=== PATIENT | male | born 1965 | race Caucasian/White ===

== ENCOUNTER 2017-11-12 16:53 | Emergency (ER) | payer SELFPAY ==
[~2017-11-12 16:53] MED LIST: ALBU8.5H IH; AZIT-18 PO; CYCL10TA29 PO; GUAI10LI10 PO; IBUP-56 PO; IBUP800T37 PO; PRED20TA6 PO; TIO18R INH
[2017-11-12] MEDS ORDERED: PRED20TA6 PO (17:11)
[2017-11-12] MEDS ORDERED: AMOX500T10 PO (17:11)
--- NOTE | 2017-11-12 17:11 | ER Report ---
History and Physical Time Seen By MD: 17:07 HPI/ROS CHIEF COMPLAINT: Hand swelling HISTORY OF PRESENT ILLNESS: 52-year-old male comes emergency by with swelling to his right hand primarily in the dorsal surface of the proximal wrist patient was out fishing and had multiple mosquito bites he is a known history of mosquito allergies of bites were proximal to the hand as he had a long sleeve shirt on with the shirt sleeve got pulled up subsequently this was 2 days prior to presentation he noted last couple days some redness and swelling in that area area is red warm and erythematous patient has full range of motion denies any trauma to the wrist denies any falls did not hit anything other than the mosquito bites is no other focal complaints REVIEW OF SYSTEMS: Respiratory: No cough, no dyspnea. Cardiovascular: No chest pain, no palpitations. Gastrointestinal: No vomiting, no abdominal pain. Musculoskeletal: No back pain. Remainder of the 14 system rev: Yes Allergies: Coded Allergies: No Known Drug Allergies (Unverified , 03/06/16) Home Meds Active Scripts Tiotropium Hastings (SPIRIVA) 18 Mcg/Cap Inh, 18 MCG INH 1-3XD, #1 INH Prov:BINH MURO MD 06/16/16 Reviewed Nurses Notes: Yes Old Medical Records Reviewed: Yes Hx Smoking: Yes (1/2PPD) Smoking Status: Current: Every Day Smoker Hx Substance Use Disorder: No Hx Alcohol Use: Yes (OCCASSIONAL ) Physical Exam General appearance: Alert no distress. Respiratory: Chest is non tender, lungs are clear to auscultation. Cardiac: Regular rate and rhythm [ ] Right hand examination patient has notable swelling to the dorsal aspect of the right hand primarily in the palmar area the dorsum of the hand some mild swelling to the proximal of the 5 digits patient has full range of motion of the wrist some mild tenderness to palpation of the wrist itself red warm and erythematous consistent with an inflammatory reaction no external signs of trauma no bruising or ecchymosis full range of motion to the fingers otherwise unremarkable examination DIFFERENTIAL DIAGNOSIS: After history and physical exam differential diagnosis was considered for acute inflammatory reaction most likely from insect envenomation Medical Decision Making ED Course/Re-evaluation ED Course ED clinical course 52-year-old male in the emergency department with swelling of the right hand primary to the dorsum examination shows full range of motion in all the digits and the risks of this is not trauma related at least on initial presentation most likely postinflammatory his hand is red warm erythematous with you to formal swelling throughout the dorsal aspect of the hand patient will be started on steroid anti-inflammatories and antibiotic compression dressing and primary care follow-up Decision to Disposition Date: Nov 12, 2017 Decision to Disposition Time: 17:09 Depart Departure Impression: Primary Impression: Allergic reaction Condition: Improved Disposition: HOME OR SELF-CARE Referrals: TORO DE OLIVEIRA MD 5 Days New Scripts Amoxicillin 500 Mg Tab (AMOXICILLIN 500 MG TAB) 500 Mg Tablet 2 TAB PO Q12H, #56 TAB TAKE TWO TABLETS BY MOUTH EVERY 12 HOURS Prov: BINH MURO MD 11/12/17 Prednisone (PREDNISONE) 20 Mg Tablet 60 MG PO QDAY, #12 0 Refills Prov: BINH MURO MD 11/12/17 Patient Instructions: General Allergic Reaction (ED) BINH MURO MD Nov 12, 2017 17:11
[2017-11-12 17:13] VITALS: BP 123/77
== END 2017-11-12 17:18 | disposition home or self-care (01) ==
LOC: ER 17:09
DX: T63.481A Toxic effect of venom of other arthropod, accidental (unintentional), initial encounter (principal); F17.210 Nicotine dependence, cigarettes, uncomplicated
CPT/HCPCS: 99281

== ENCOUNTER 2018-02-08 14:47 | Emergency (ER) | payer SELFPAY ==
[~2018-02-08 14:47] MED LIST changes: +AMOX500T10 PO
--- NOTE | 2018-02-08 15:03 | ER Report ---
History and Physical Time Seen By MD: 14:52 Hx. of Stated Complaint: RIGHT LOWER LEG SWELLING HPI/ROS CHIEF COMPLAINT: Confusion, dizziness, right leg swelling HISTORY OF PRESENT ILLNESS: 52-year-old male patient presents to the emergency room with complaint of confusion, dizziness, right leg swelling. Patient states that he has had swelling in his right lower extremity for the past several weeks. He states that when he gets home from work that typically that leg is significantly more swollen. Patient states that the swelling will seem to improve at night. He denies having any pain in the leg. Patient states that he returned home from work last night and felt very confused. States that he got into his bedroom, wanting to be alone and came out start cooking something for dinner. Then ordered pizza and forgot that he been in the process of making something for dinner. Patient states that he is just very confused, not able to remember what he was doing. He denied having any unilateral weakness, stating he was just very fatigued from work. Patient states he also has episodes where he will get dizzy at work. He states that he has not fallen, just states that he is very dizzy whenever he is a work. He denies having any nausea, vomiting or diarrhea. He denies having any chest pain. REVIEW OF SYSTEMS: Respiratory: No cough, no dyspnea. Cardiovascular: No chest pain, no palpitations. Gastrointestinal: No vomiting, no abdominal pain. Musculoskeletal: Complains of some back pain. Allergies: Coded Allergies: No Known Drug Allergies (Unverified , 02/08/18) Home Meds No Active Prescriptions or Reported Meds Past Medical/Surgical History Patient has past medical history of injury to the right knee, smoking half pack a day. Patient denies any surgical history. Reviewed Nurses Notes: Yes Hx Smoking: Yes (1/2PPD) Smoking Status: Current: Every Day Smoker Hx Substance Use Disorder: No Hx Alcohol Use: Yes (OCCASSIONAL ) Constitutional Vital Sign - Last 24 Hours 02/08/18 02/08/18 02/08/18 02/08/18 14:47 14:52 14:53 15:00 Temp 97.5 Pulse ??? 83 Resp 14 B/P (MAP) 126/83 (97) 126/83 124/89 (101) Pulse Ox 94 O2 Delivery Room Air 02/08/18 02/08/18 02/08/1802/08/18 15:17 15:34 15:35 15:36 Pulse 75 74 72 Resp 17 B/P (MAP) 116/69 (85) 116/69 (85) 114/72 (86) Pulse Ox 94 02/08/18 02/08/18 02/08/18 02/08/18 15:39 15:47 16:00 16:30 Pulse 85 78 Resp 22 B/P (MAP) 94/71 (79) 112/77 (89) 114/79 (91) Pulse Ox 94 O2 Delivery Room Air 02/08/18 02/08/18 02/08/18 02/08/18 16:35 16:40 17:00 17:10 Pulse 78 80 71 Resp 11 15 19 B/P (MAP) 124/80 (95) Pulse Ox 94 95 94 O2 Delivery Room Air Room Air Room Air 02/08/18 17:30 B/P (MAP) 138/86 (103) Physical Exam General Appearance: The patient is alert, has no immediate need for airway protection and no current signs of toxicity. ENT: Tympanic membranes are pearly-angelo, auditory canals are patent, mucous membranes are moist. Respiratory: Chest is non tender, lungs are clear to auscultation. Cardiac: regular rate and rhythm Gastrointestinal: Abdomen is soft and non tender, no masses, bowel sounds normal. Musculoskeletal: Neck: Neck is supple and non tender. Extremities have full range of motion and are non tender. Skin: No rashes or lesions. Neuro: Patient is alert and oriented 4, cranial nerves II through XII grossly intact. Patient had a negative pronator drift. Patient has equal strength throughout. DIFFERENTIAL DIAGNOSIS: After history and physical exam differential diagnosis was considered for DVT, depression, electrolyte abnormality. Medical Decision Making Data Points Result Diagram: 02/08/18 1544 02/08/18 1544 Laboratory Hematology Test 02/08/18 15:44 02/08/18 16:17 Red Blood Count 5.03 M/uL (4.00-5.60) Mean Corpuscular Volume 99.6 fL (80.0-96.0) Mean Corpuscular Hemoglobin 35.4 pg (26.0-33.0) Mean Corpuscular Hemoglobin Concent 35.5 g/dL (32.0-36.0) Red Cell Distribution Width 13.4 % (11.5-14.5) Mean Platelet Volume 10.3 fL (7.2-11.1) Neutrophils (%) (Auto) 46.3 % (39.4-72.5) Lymphocytes (%) (Auto) 38.2 % (17.6-49.6) Monocytes (%) (Auto) 11.0 % (4.1-12.4) Eosinophils (%) (Auto) 3.0 % (0.4-6.7) Basophils (%) (Auto) 1.5 % (0.3-1.4) Nucleated RBC Relative Count (auto) 0.0 /100WBC Neutrophils # (Auto) 2.3 K/uL (2.0-7.4) Lymphocytes # (Auto) 1.9 K/uL (1.3-3.6) Monocytes # (Auto) 0.6 K/uL (0.3-1.0) Eosinophils # (Auto) 0.2 K/uL (0.0-0.5) Basophils # (Auto) 0.1 K/uL (0.0-0.1) Nucleated RBC Absolute Count (auto) 0.00 K/uL Peripheral Blood Smear Yes Y/N Prothrombin Time 12.3 seconds (12.0-14.4) Prothromb Time International Ratio 0.92 Activated Partial Thromboplast Time 26 seconds (23-35) Sodium Level 143 mmol/L (137-145) Potassium Level 3.6 mmol/L (3.5-5.0) Chloride Level 108 mmol/L (98-107) Carbon Dioxide Level 20 mmol/L (22-30) Blood Urea Nitrogen 8 mg/dl (9-21) Creatinine 0.70 mg/dl (0.66-1.25) Glomerular Filtration Rate Calc > 60.0 Random Glucose 134 mg/dl (75-110) Calcium Level 8.7 mg/dl (8.4-10.2) Total Bilirubin 0.3 mg/dl (0.2-1.3) Aspartate Amino Transf (AST/SGOT) 61 U/L (0-35) Alanine Aminotransferase (ALT/SGPT) 57 U/L (0-56) Alkaline Phosphatase 49 U/L (0-126) Total Protein 6.7 g/dl (6.3-8.2) Albumin 3.8 g/dl (3.5-5.0) Urine Color Yellow Urine Clarity Slightly-cloudy Urine pH 5.0 pH (4.8-9.5) Urine Specific Elsie 1.016 Urine Protein Negative mg/dL (NEGATIVE) Urine Glucose (UA) Negative mg/dL (NEGATIVE) Urine Ketones Negative mg/dL (NEGATIVE) Urine Blood Negative (NEGATIVE) Urine Nitrite Negative (NEGATIVE) Urine Bilirubin Negative (NEGATIVE) Urine Urobilinogen 2.0 mg/dL (0.2-1.9) Urine Leukocyte Esterase Negative (NEGATIVE) Urine RBC <1 /HPF (0-2/HPF) Urine WBC 1 /HPF (0-5/HPF) Urine Squamous Epithelial Cells Few /LPF (</=FEW) Urine Bacteria Negative /HPF (NONE-FEW) Urine Hyaline Casts Few /LPF (NONE-FEW) Urine Mucus Few /HPF (NONE-FEW) Chemistry Test 02/08/18 15:44 02/08/18 16:17 White Blood Count 5.0 k/uL (4.5-11.0) Red Blood Count 5.03 M/uL (4.00-5.60) Hemoglobin 17.8 g/dL (14.0-18.0) Hematocrit 50.1 % (42.0-52.0) Mean Corpuscular Volume 99.6 fL (80.0-96.0) Mean Corpuscular Hemoglobin 35.4 pg (26.0-33.0) Mean Corpuscular Hemoglobin Concent 35.5 g/dL (32.0-36.0) Red Cell Distribution Width 13.4 % (11.5-14.5) Platelet Count 101 K/uL (150-450) Mean Platelet Volume 10.3 fL (7.2-11.1) Neutrophils (%) (Auto) 46.3 % (39.4-72.5) Lymphocytes (%) (Auto) 38.2 % (17.6-49.6) Monocytes (%) (Auto) 11.0 % (4.1-12.4) Eosinophils (%) (Auto) 3.0 % (0.4-6.7) Basophils (%) (Auto) 1.5 % (0.3-1.4) Nucleated RBC Relative Count (auto) 0.0 /100WBC Neutrophils # (Auto) 2.3 K/uL (2.0-7.4) Lymphocytes # (Auto) 1.9 K/uL (1.3-3.6) Monocytes # (Auto) 0.6 K/uL (0.3-1.0) Eosinophils # (Auto) 0.2 K/uL (0.0-0.5) Basophils # (Auto) 0.1 K/uL (0.0-0.1) Nucleated RBC Absolute Count (auto) 0.00 K/uL Peripheral Blood Smear Yes Y/N Prothrombin Time 12.3 seconds (12.0-14.4) Prothromb Time International Ratio 0.92 Activated Partial Thromboplast Time 26 seconds (23-35) Glomerular Filtration Rate Calc > 60.0 Calcium Level 8.7 mg/dl (8.4-10.2) Total Bilirubin 0.3 mg/dl (0.2-1.3) Aspartate Amino Transf (AST/SGOT) 61 U/L (0-35) Alanine Aminotransferase (ALT/SGPT) 57 U/L (0-56) Alkaline Phosphatase 49 U/L (0-126) Total Protein 6.7 g/dl (6.3-8.2) Albumin 3.8 g/dl (3.5-5.0) Urine Color Yellow Urine Clarity Slightly-cloudy Urine pH 5.0 pH (4.8-9.5) Urine Specific Elsie 1.016 Urine Protein Negative mg/dL (NEGATIVE) Urine Glucose (UA) Negative mg/dL (NEGATIVE) Urine Ketones Negative mg/dL (NEGATIVE) Urine Blood Negative (NEGATIVE) Urine Nitrite Negative (NEGATIVE) Urine Bilirubin Negative (NEGATIVE) Urine Urobilinogen 2.0 mg/dL (0.2-1.9) Urine Leukocyte Esterase Negative (NEGATIVE) Urine RBC <1 /HPF (0-2/HPF) Urine WBC 1 /HPF (0-5/HPF) Urine Squamous Epithelial Cells Few /LPF (</=FEW) Urine Bacteria Negative /HPF (NONE-FEW) Urine Hyaline Casts Few /LPF (NONE-FEW) Urine Mucus Few /HPF (NONE-FEW) Coagulation Test 02/08/18 15:44 Prothrombin Time 12.3 seconds Prothromb Time International Ratio 0.92 Activated Partial Thromboplast Time 26 seconds Urinalysis Test 02/08/18 16:17 Urine Color Yellow Urine Clarity Slightly-cloudy Urine pH 5.0 pH (4.8-9.5) Urine Specific Elsie 1.016 Urine Protein Negative mg/dL (NEGATIVE) Urine Glucose (UA) Negative mg/dL (NEGATIVE) Urine Ketones Negative mg/dL (NEGATIVE) Urine Blood Negative (NEGATIVE) Urine Nitrite Negative (NEGATIVE) Urine Bilirubin Negative (NEGATIVE) Urine Urobilinogen 2.0 mg/dL (0.2-1.9) Urine Leukocyte Esterase Negative (NEGATIVE) Urine RBC <1 /HPF (0-2/HPF) Urine WBC 1 /HPF (0-5/HPF) Urine Squamous Epithelial Cells Few /LPF (</=FEW) Urine Bacteria Negative /HPF (NONE-FEW) Urine Hyaline Casts Few /LPF (NONE-FEW) Urine Mucus Few /HPF (NONE-FEW) EKG/Imaging Imaging 2 VIEWS CHEST INDICATION: Confusion last night. Coarse lung sounds. History of smoking. COMPARISON: 06/16/2016. FINDINGS: Cardiomediastinal silhouette and pulmonary vessels within normal limits. There is no focal infiltrate or lobar consolidation. There is no pneumothorax or pleural effusion. No nodule. Upper abdomen is unremarkable. No acute bony abnormality. IMPRESSION: 1. No acute cardiopulmonary process. Report Dictated By: Cheikh Yepez at 02/08/2018 4:31 PM Report E-Signed By: Cheikh Yepez at 02/08/2018 4:[address] OF THE BRAIN WITHOUT CONTRAST HISTORY: Confusion last night PROCEDURE: 3.0 mm contiguous axial sections were performed through the brain. Sagittal and coronal reformats were submitted. COMPARISON: None FINDINGS: BRAIN: Brain and intracranial structures: There is no mass lesion, hemorrhage or acute infarct. Orbits (included portions): Normal. Scalp: Normal. Skull: Normal. Paranasal sinuses and mastoid air cells (included portions): Normal. IMPRESSION: No evidence of acute intracranial abnormality. One of the following dose optimization techniques was utilized in the performance of this exam: Automated exposure control; adjustment of the mA and/or kV according to the patient's size; or use of an iterative reconstruction technique. Specific details can be referenced in the facility's radiology CT exam operational policy. Report Dictated By: Sumaya Camacho MD at 02/08/2018 4:31 PM Report E-Signed By: Sumaya Camacho MD at 02/08/2018 5:03 PM Venous Doppler ultrasound right lower extremity Indication: Right calf swelling.. Comparison: None Available Findings: Duplex Doppler and color flow imaging was performed. The common femoral, femoral, and popliteal veins are all patent and compressible with normal Doppler wave forms. There are normal responses to augmentation. The posterior tibial and peroneal veins are patent in the calf. The proximal greater saphenous vein is also normal. Subcutaneous tissues are unremarkable. IMPRESSION: 1. No evidence of deep venous thrombosis of the right lower extremity. Report Dictated By: Cheikh Yepez at 02/08/2018 5:01 PM Report E-Signed By: Cheikh Yepez at 02/08/2018 5:01 PM ED Course/Re-evaluation ED Course Patient was admitted and examined, history and physical were obtained. Differential diagnoses were considered. On examination patient had no obvious swelling to the right lower leg, there was no weakness noted to the upper extremities. Patient is alert and oriented 4. A CBC, CMP, chest x-ray, CT scan of the head and venous ultrasound were done. Patient was negative for any DVTs, labs were unremarkable, platelets were a little low at 101, MCV is elevated 99. I believe is probably secondary to alcohol abuse. CT scan of the head was negative. I discussed findings with the patient. I believe that the edema is likely secondary to standing for extended period time. I believe that the confusion that he had last night is likely secondary more to depression. With him stating that he has been wanting to be separate and not around people like normal basilar that this more a depression that is a mini stroke. I will have the patient wear compression stockings when he is working. We'll have him follow-up with primary care at the [facility] for further evaluation. Patient and friend verbalized understanding and agreement with plan. Decision to Disposition Date: Feb 08, 2018 Decision to Disposition Time: 17:38 Depart Departure Latest Vital Signs Vital Signs Date Time Temp Pulse Resp B/P (MAP) Pulse Ox O2 Delivery O2 Flow Rate FiO2 02/08/18 17:30 138/86 (103) 02/08/18 17:10 71 19 94 Room Air 02/08/18 14:53 97.5 Impression: Primary Impression: Dizziness Additional Impression: Leg swelling Condition: Improved Disposition: HOME OR SELF-CARE New Scripts No Active Prescriptions or Reported Meds Patient Instructions: Dizziness (ED) Additional Instructions: Increase fluid intake. Get plenty of rest. Follow up with the [facility] . Return to the ER if condition worsens. Wear compression hose when you are working. Continue with normal diet and activities. Problem Qualifiers LISA WILCOX Feb 08, 2018 15:03
[2018-02-08 15:18] LABS: INR 0.92
--- NOTE | 2018-02-08 15:22 | EKG ---
FACILITY: [facility] [place] PATIENT NAME: JOSE ENRIQUE SYLVESTER : [id number] MR: [id number] V: [id number] EXAM DATE: ORDERING PHYSICIAN: LISA WILCOX TECHNOLOGIST: [place] Test Reason : DIZZINESS Blood Pressure : / mmHG Vent. Rate : 077 BPM Atrial Rate : 077 BPM P-R Int : 128 ms QRS Dur : 104 ms QT Int : 402 ms P-R-T Axes : 027 -74 052 degrees QTc Int : 454 ms Sinus rhythm Incomplete right bundle branch block Leftward axis Left anterior fascicular block Abnormal ECG When compared with ECG of 16-JUN-2016 10:31, T wave inversion no longer evident in Anterior leads Confirmed by Devan Llamas ([id number]) on 02/08/2018 5:36:30 PM Referred By: JERI Confirmed By:Devan Martinez
[2018-02-08 15:57] LABS: PLATELET COUNT, AUTOMATED 101 K/uL (150-450)
[2018-02-08] MEDS ORDERED: NS(*) 0.9% 1000 ML BAG 1,000 ML IV ONE (16:25)
--- NOTE | 2018-02-08 16:38 | RADIOLOGY IMAGING REPORT ---
FACILITY: [facility] PATIENT NAME: Rito Falk : 1965 MR: [id number] V: [id number] EXAM DATE: ORDERING PHYSICIAN: LISA WILCOX TECHNOLOGIST: Location: [facility] Patient: Rito Falk : 1965 Visit/Account:[id number] Date of Sevice: 02/08/2018 2 VIEWS CHEST INDICATION: Confusion last night. Coarse lung sounds. History of smoking. COMPARISON: 06/16/2016. FINDINGS: Cardiomediastinal silhouette and pulmonary vessels within normal limits. There is no focal infiltrate or lobar consolidation. There is no pneumothorax or pleural effusion. No nodule. Upper abdomen is unremarkable. No acute bony abnormality. IMPRESSION: 1. No acute cardiopulmonary process. Report Dictated By: Cheikh Yepez at 02/08/2018 4:31 PM Report E-Signed By: Cheikh Yepez at 02/08/2018 4:33 PM WSN:[id number]
--- NOTE | 2018-02-08 17:04 | RADIOLOGY IMAGING REPORT ---
FACILITY: [facility] PATIENT NAME: Rito Falk : 1965 MR: [id number] V: [id number] EXAM DATE: ORDERING PHYSICIAN: LISA WILCOX TECHNOLOGIST: Location: [facility] Patient: Rito Falk : 1965 Visit/Account:[id number] Date of Sevice: 02/08/2018 Venous Doppler ultrasound right lower extremity Indication: Right calf swelling.. Comparison: None Available Findings: Duplex Doppler and color flow imaging was performed. The common femoral, femoral, and popl iteal veins are all patent and compressible with normal Doppler wave forms. There are normal respons es to augmentation. The posterior tibial and peroneal veins are patent in the calf. The proximal greater saphenous vein i s also normal. Subcutaneous tissues are unremarkable. IMPRESSION: 1. No evidence of deep venous thrombosis of the right lower extremity. Report Dictated By: Cheikh Yepez at 02/08/2018 5:01 PM Report E-Signed By: Cheikh Yepez at 02/08/2018 5:01 PM WSN:[id number]
--- NOTE | 2018-02-08 17:07 | RADIOLOGY IMAGING REPORT ---
[place] [facility] [place] NAME: Rito Falk : 1965 MR: [id number] V: [id number] EXAM DATE: ORDERING PHYSICIAN: LISA WILCOX TECHNOLOGIST: Location: [facility] Patient: Rito Falk : 1965 Visit/Account:[id number] Date of Sevice: 02/08/2018 CT OF THE BRAIN WITHOUT CONTRAST HISTORY: Confusion last night PROCEDURE: 3.0 mm contiguous axial sections were performed through the brain. Sagittal and coronal r eformats were submitted. COMPARISON: None FINDINGS: BRAIN: Brain and intracranial structures: There is no mass lesion, hemorrhage or acute infarct. Orbits (included portions): Normal. Scalp: Normal. Skull: Normal. Paranasal sinuses and mastoid air cells (included portions): Normal. IMPRESSION: No evidence of acute intracranial abnormality. One of the following dose optimization techniques was utilized in the performance of this exam: Autom ated exposure control; adjustment of the mA and/or kV according to the patient's size; or use of an i terative reconstruction technique. Specific details can be referenced in the facility's radiology C T exam operational policy. Report Dictated By: Sumaya Camacho MD at 02/08/2018 4:31 PM Report E-Signed By: Sumaya Camacho MD at 02/08/2018 5:03 PM WSN:[id number]
[2018-02-08 17:30] VITALS: BP 138/86
== END 2018-02-08 17:51 | disposition home or self-care (01) ==
LOC: ER 15:02
DX: R42 Dizziness and giddiness (principal); M79.89 Other specified soft tissue disorders; R94.31 Abnormal electrocardiogram [ECG] [EKG]
CPT/HCPCS: 36415; 70450; 71046; 81001; 85025; 85610; 85730; 93005; 93971; 96360; 99285; J7030; 82040; 82247; 82310; 82374; 82435; 82565; 82947; 84075; 84132; 84155; 84295; 84450; 84460; 84520

== ENCOUNTER 2018-02-23 17:30 | Emergency (ER) | payer SELFPAY ==
--- NOTE | 2018-02-23 18:01 | ER Report ---
History and Physical Time Seen By MD: 18:01 Hx. of Stated Complaint: SEVERE LOWER L SIDE ABDO PAIN PAST 2 DAYS, DIARRHEA, VOMITING HPI/ROS CHIEF COMPLAINT: Abdominal pain HISTORY OF PRESENT ILLNESS: This is a 53-year-old male who presents to the emergency department for abdominal pain. Patient states that he has left-sided abdominal pain for about 2 days, no injuries. Patient states the pain does radiate down into the left testicle, he thinks he's had an inguinal hernia repair. Patient does lift quite a bit of weight at work. Patient has also had some diarrhea, vomiting. Denies fevers or chills. No headaches. No rashes. No recent trauma. REVIEW OF SYSTEMS: Constitutional: No fever, no chills. Eyes: No discharge. ENT: No sore throat. Cardiovascular: No chest pain, no palpitations. Respiratory: No cough, no shortness of breath. Gastrointestinal: As above. Genitourinary: As above. Musculoskeletal: No back pain. Skin: No rashes. Neurological: No headache. Allergies: Coded Allergies: No Known Drug Allergies (Unverified , 02/08/18) Home Meds Active Scripts Ondansetron Hcl (ZOFRAN) 4 Mg Tablet, 4 MG PO Q12H, #8 TAB 0 Refills Prov:JONNY ELISE [facility]- 02/23/18 Past Medical/Surgical History The patient has a past medical and surgical history of pneumonia, chronic back pain, wears glasses, wears dentures, leukemia, inguinal hernia repair. Hx Smoking: Yes (1/2PPD) Smoking Status: Current: Every Day Smoker Hx Substance Use Disorder: No Hx Alcohol Use: Yes (OCCASSIONAL ) Constitutional Vital Sign - Last 24 Hours 02/23/18 17:50 Temp 97.9 Pulse 81 Resp 16 B/P (MAP) 121/80 Pulse Ox 89 O2 Delivery Room Air Physical Exam General Appearance: The patient is alert, has no immediate need for airway protection and no signs of toxicity. Eyes: Pupils equal and round no pallor or injection. ENT, Mouth: Mucous membranes are dry. Respiratory: There are no retractions, lungs are clear to auscultation. Cardiovascular: Regular rate and rhythm. Gastrointestinal: Abdomen is soft , mild tenderness to the left lower and right lower quadrants. No rebound tenderness. Normoactive bowel sounds. No abdominal bruits, no masses, bowel sounds normal. Genitourinary: Decreased but positive cremasteric reflex bilaterally. No inguinal abnormalities. No abnormal testicular findings. Neurological: Alert and oriented 4. Moving all extremities. Following all commands. No focal neuro deficits. Skin: Warm and dry, no rashes. Musculoskeletal: Neck is supple non tender. Extremities are nontender, nonswollen and have full range of motion. DIFFERENTIAL DIAGNOSIS: After history and physical exam differential diagnosis was considered for abdominal pain including but not limited to appendicitis, cholecystitis, gastritis and urinary tract infection. Medical Decision Making Data Points Result Diagram: 02/23/18 1836 02/23/186 Laboratory Hematology Test 02/23/18 18:36 02/23/18 19:34 Red Blood Count 5.17 M/uL (4.00-5.60) Mean Corpuscular Volume 99.0 fL (80.0-96.0) Mean Corpuscular Hemoglobin 34.7 pg (26.0-33.0) Mean Corpuscular Hemoglobin Concent 35.1 g/dL (32.0-36.0) Red Cell Distribution Width 13.6 % (11.5-14.5) Mean Platelet Volume 10.2 fL (7.2-11.1) Neutrophils (%) (Auto) 41.4 % (39.4-72.5) Lymphocytes (%) (Auto) 43.7 % (17.6-49.6) Monocytes (%) (Auto) 9.6 % (4.1-12.4) Eosinophils (%) (Auto) 3.9 % (0.4-6.7) Basophils (%) (Auto) 1.4 % (0.3-1.4) Nucleated RBC Relative Count (auto) 0.1 /100WBC Neutrophils # (Auto) 1.9 K/uL (2.0-7.4) Lymphocytes # (Auto) 2.0 K/uL (1.3-3.6) Monocytes # (Auto) 0.5 K/uL (0.3-1.0) Eosinophils # (Auto) 0.2 K/uL (0.0-0.5) Basophils # (Auto) 0.1 K/uL (0.0-0.1) Nucleated RBC Absolute Count (auto) 0.00 K/uL Peripheral Blood Smear Yes Y/N Sodium Level 145 mmol/L (137-145) Potassium Level 3.7 mmol/L (3.5-5.0) Chloride Level 110 mmol/L (98-107) Carbon Dioxide Level 23 mmol/L (22-30) Blood Urea Nitrogen 9 mg/dl (9-21) Creatinine 0.60 mg/dl (0.66-1.25) Glomerular Filtration Rate Calc > 60.0 Random Glucose 95 mg/dl (75-110) Calcium Level 9.2 mg/dl (8.4-10.2) Total Bilirubin 0.4 mg/dl (0.2-1.3) Aspartate Amino Transf (AST/SGOT) 72 U/L (0-35) Alanine Aminotransferase (ALT/SGPT) 61 U/L (0-56) Alkaline Phosphatase 55 U/L (0-126) Total Protein 7.3 g/dl (6.3-8.2) Albumin 3.8 g/dl (3.5-5.0) Urine Color Yellow Urine Clarity Clear Urine pH 5.0 pH (4.8-9.5) Urine Specific [place] 1.034 Urine Protein Negative mg/dL (NEGATIVE) Urine Glucose (UA) Negative mg/dL (NEGATIVE) Urine Ketones Negative mg/dL (NEGATIVE) Urine Blood Negative (NEGATIVE) Urine Nitrite Negative (NEGATIVE) Urine Bilirubin Negative (NEGATIVE) Urine Urobilinogen Negative mg/dL (0.2-1.9) Urine Leukocyte Esterase Negative (NEGATIVE) Urine RBC None /HPF (0-2/HPF) Urine WBC None /HPF (0-5/HPF) Urine Squamous Epithelial Cells None /LPF (</=FEW) Urine Bacteria Negative /HPF (NONE-FEW) Urine Mucus None /HPF (NONE-FEW) Chemistry Test 02/23/18 18:36 02/23/18 19:34 White Blood Count 4.7 k/uL (4.5-11.0) Red Blood Count 5.17 M/uL (4.00-5.60) Hemoglobin 18.0 g/dL (14.0-18.0) Hematocrit 51.2 % (42.0-52.0) Mean Corpuscular Volume 99.0 fL (80.0-96.0) Mean Corpuscular Hemoglobin 34.7 pg (26.0-33.0) Mean Corpuscular Hemoglobin Concent 35.1 g/dL (32.0-36.0) Red Cell Distribution Width 13.6 % (11.5-14.5) Platelet Count 103 K/uL (150-450) Mean Platelet Volume 10.2 fL (7.2-11.1) Neutrophils (%) (Auto) 41.4 % (39.4-72.5) Lymphocytes (%) (Auto) 43.7 % (17.6-49.6) Monocytes (%) (Auto) 9.6 % (4.1-12.4) Eosinophils (%) (Auto) 3.9 % (0.4-6.7) Basophils (%) (Auto) 1.4 % (0.3-1.4) Nucleated RBC Relative Count (auto) 0.1 /100WBC Neutrophils # (Auto) 1.9 K/uL (2.0-7.4) Lymphocytes # (Auto) 2.0 K/uL (1.3-3.6) Monocytes # (Auto) 0.5 K/uL (0.3-1.0) Eosinophils # (Auto) 0.2 K/uL (0.0-0.5) Basophils # (Auto) 0.1 K/uL (0.0-0.1) Nucleated RBC Absolute Count (auto) 0.00 K/uL Peripheral Blood Smear Yes Y/N Glomerular Filtration Rate Calc > 60.0 Calcium Level 9.2 mg/dl (8.4-10.2) Total Bilirubin 0.4 mg/dl (0.2-1.3) Aspartate Amino Transf (AST/SGOT) 72 U/L (0-35) Alanine Aminotransferase (ALT/SGPT) 61 U/L (0-56) Alkaline Phosphatase 55 U/L (0-126) Total Protein 7.3 g/dl (6.3-8.2) Albumin 3.8 g/dl (3.5-5.0) Urine Color Yellow Urine Clarity Clear Urine pH 5.0 pH (4.8-9.5) Urine Specific [place] 1.034 Urine Protein Negative mg/dL (NEGATIVE) Urine Glucose (UA) Negative mg/dL (NEGATIVE) Urine Ketones Negative mg/dL (NEGATIVE) Urine Blood Negative (NEGATIVE) Urine Nitrite Negative (NEGATIVE) Urine Bilirubin Negative (NEGATIVE) Urine Urobilinogen Negative mg/dL (0.2-1.9) Urine Leukocyte Esterase Negative (NEGATIVE) Urine RBC None /HPF (0-2/HPF) Urine WBC None /HPF (0-5/HPF) Urine Squamous Epithelial Cells None /LPF (</=FEW) Urine Bacteria Negative /HPF (NONE-FEW) Urine Mucus None /HPF (NONE-FEW) Urinalysis Test 02/23/18 19:34 Urine Color Yellow Urine Clarity Clear Urine pH 5.0 pH (4.8-9.5) Urine Specific [place] 1.034 Urine Protein Negative mg/dL (NEGATIVE) Urine Glucose (UA) Negative mg/dL (NEGATIVE) Urine Ketones Negative mg/dL (NEGATIVE) Urine Blood Negative (NEGATIVE) Urine Nitrite Negative (NEGATIVE) Urine Bilirubin Negative (NEGATIVE) Urine Urobilinogen Negative mg/dL (0.2-1.9) Urine Leukocyte Esterase Negative (NEGATIVE) Urine RBC None /HPF (0-2/HPF) Urine WBC None /HPF (0-5/HPF) Urine Squamous Epithelial Cells None /LPF (</=FEW) Urine Bacteria Negative /HPF (NONE-FEW) Urine Mucus None /HPF (NONE-FEW) EKG/Imaging Imaging EXAMINATION: Limited right upper quadrant ultrasound Additional Pertinent history: Abdominal pain. Distended gallbladder on CT scan. COMPARISON STUDIES: CT of the abdomen pelvis done earlier in the day. FINDINGS: Gallbladder: no stones, sludge, wall thickening or pericholecystic fluid. Patient was tender during the exam. Gallbladder is mildly distended without focal abnormality. Liver: Normal size and echotexture. No focal abnormality and a smooth surface. Portal vein is patent. No ascites. Common duct: Mildly dilated up to 9.1 mm however tapers towards the pancreatic duct. This is unchanged from CT scan. No intraductal abnormality is identified. Pancreas: No focal abnormality. Right kidney: negative Proximal IVC/Aorta: negative IMPRESSION: 1. Gallbladder is mildly distended but shows no focal normality. The patient was tender during the exam. 2. Common bile duct is mildly dilated. It does appear to taper to the pancreas. No intraductal abnormality is identified. This is unchanged from the CT scan. Report Dictated By: Cheikh Yepez at 02/23/2018 10:35 PM Report E-Signed By: Cheikh Yepez at 02/23/2018 10:39 PM WSN:[id number] Location: [facility] Patient: Rito Falk : 1965 Visit/Account:[id number] Date of Sevice: 02/23/2018 ABDOMEN/PELVIS WITH CONTRAST HISTORY: Abdominal pain TECHNIQUE: Axial images were obtained through the abdomen and pelvis with intravenous contrast . One of the following dose optimization techniques was utilized in the performance of this exam: automated exposure control; adjustment of the mA and/or kv according to patient size; or use of iterative reconstruction technique. Specific details can be referenced in the facility's radiology CT exam operational policy. CONTRAST: 75 mL of Isovue-370 COMPARISON: None. FINDINGS: Visualized lung bases: Negative. Hepatobiliary: Dilated gallbladder. Common bile duct measures 9 mm with tapering towards the ampulla. Subtle nodular hepatic contour concerning for cirrhosis. Spleen: Borderline splenomegaly. Adrenals: Negative. Pancreas: Negative. Kidneys/ureters/bladder: Negative. Bowel/peritoneum/mesentery: Normal appendix. No bowel obstruction, free air or ascites. Suboptimal distention of the descending and sigmoid colon. Vessels: Negative. Lymph nodes: Mildly enlarged periportal lymph nodes measuring 1.7 x 1.2 cm (image 35). Pelvic genitourinary: Negative. Bones/body wall: Negative. Other findings: None significant IMPRESSION: 1. Dilated gallbladder with the common bile duct measuring 9 mm. This can be seen with cholecystitis, common bile duct stone or possibly mass although the pancreatic duct is normal caliber. Recommend ultrasound for further evaluation. 2. Nodular hepatic contour concerning for cirrhosis with borderline splenomegaly. Mild periportal lymphadenopathy is nonspecific. Report Dictated By: Alan Encarnacion MD at 02/23/2018 8:33 PM Report E-Signed By: Alan Encarnacion MD at 02/23/2018 8:40 PM WSN:[id number] ED Course/Re-evaluation Clinical Indication for ER IV: Hydration, IV Access ED Course The patient was admitted to a room. A history and physical were obtained. Differential diagnoses were considered. An IV was started. A CBC, CMP were obtained. CBC unremarkable, chemistry unremarkable. Negative urine. Patient was given a 1 L normal saline bolus. 4 mg IV Zofran, 4 mg IV morphine. Patient stat es feeling much better at this time. A CT of the abdomen and pelvis Showing dilated gallbladder with the common bile duct injuring 9 mm, this can be seen with cholecystitis, and bile duct stone or possible mass through the pancreatic duct as normal caliber recommended ultrasound. I did review this with the patient, I did recommend an ultrasound. Patient was agreeable. Ultrasound showing Gallbladder is mildly distended but shows no focal normality. No cholecystitis, no sludging or stones identified. The patient is much improved at this time I did recommend following up with the [facility] and Dr. Huynh for further evaluation. Patient was given a take home pack for Zofran, he was also given a prescription for Zofran. Truck to to take Advil or Tylenol as needed for pain. He states he will follow up with the [facility]. Patient had no other questions or concerns at this time and discharged home. Decision to Disposition Date: Feb 23, 2018 Decision to Disposition Time: 23:02 Depart Departure Latest Vital Signs Vital Signs Date Time Temp Pulse Resp B/P (MAP) Pulse Ox O2 Delivery O2 Flow Rate FiO2 02/23/18 17:50 97.9 81 16 121/80 89 Room Air Impression: Primary Impression: Abdominal pain Additional Impression: Gallbladder disorder Condition: Improved Disposition: HOME OR SELF-CARE Referrals: FRANKY MCKEON (PCP) 5 Days ROBBY HUYNH MD New Scripts Ondansetron Hcl (ZOFRAN) 4 Mg Tablet 4 MG PO Q12H, #8 TAB 0 Refills Prov: JONNY ELISE- 02/23/18 Patient Instructions: Abdominal Pain (ED) Additional Instructions: It appears that sure pain is coming from her gallbladder, it is mildly distended, and no infectious process or stones identified in the CAT scan or ultrasound today. I would recommend following up with the [facility] this week for reevaluation. I would also recommend calling Dr. Maggie Dixon office tomorrow and try to schedule a follow-up appointment within the next several weeks for reevaluation. Drink plenty of water. Get plenty of rest. Take the Zofran for nausea. Return to the emergency department for any other concerns or worsening symptoms. Problem Qualifiers Primary Impression: Abdominal pain Abdominal location: lower abdomen, unspecified Qualified Codes: R10.30 - Lower abdominal pain, unspecified JONNY ELISEP- Feb 23, 2018 18:01
[2018-02-23] MEDS ORDERED: MORPHINE 4 MG/ML SDV IVP ONE (18:15)
[2018-02-23] MEDS ORDERED: ONDANSETRON 4 MG/2 ML VIAL IVP ONE (18:15)
[2018-02-23] MEDS ORDERED: IOPAMIDOL 76% 75 ML INFUS BTL 75 ML ONE (18:38)
[2018-02-23 18:46] LABS: PLATELET COUNT, AUTOMATED 103 K/uL (150-450)
--- NOTE | 2018-02-23 20:44 | RADIOLOGY IMAGING REPORT ---
FACILITY: [facility] PATIENT NAME: Rito Falk : 1965 MR: [id number] V: [id number] EXAM DATE: ORDERING PHYSICIAN: JONNY ELISE TECHNOLOGIST: Location: [facility] Patient: Rito Falk : 1965 Visit/Account:[id number] Date of Sevice: 02/23/2018 ABDOMEN/PELVIS WITH CONTRAST HISTORY: Abdominal pain TECHNIQUE: Axial images were obtained through the abdomen and pelvis with intravenous contrast . One of the following dose optimization techniques was utilized in the performance of this exam: automate d exposure control; adjustment of the mA and/or kv according to patient size; or use of iterative rec onstruction technique. Specific details can be referenced in the facility's radiology CT exam operati onal policy. CONTRAST: 75 mL of Isovue-370 COMPARISON: None. FINDINGS: Visualized lung bases: Negative. Hepatobiliary: Dilated gallbladder. Common bile duct measures 9 mm with tapering towards the ampull a. Subtle nodular hepatic contour concerning for cirrhosis. Spleen: Borderline splenomegaly. Adrenals: Negative. Pancreas: Negative. Kidneys/ureters/bladder: Negative. Bowel/peritoneum/mesentery: Normal appendix. No bowel obstruction, free air or ascites. Suboptimal distention of the descending and sigmoid colon. Vessels: Negative. Lymph nodes: Mildly enlarged periportal lymph nodes measuring 1.7 x 1.2 cm (image 35). Pelvic genitourinary: Negative. Bones/body wall: Negative. Other findings: None significant IMPRESSION: 1. Dilated gallbladder with the common bile duct measuring 9 mm. This can be seen with cholecystiti s, common bile duct stone or possibly mass although the pancreatic duct is normal caliber. Recommend ultrasound for further evaluation. 2. Nodular hepatic contour concerning for cirrhosis with borderline splenomegaly. Mild periportal l ymphadenopathy is nonspecific. Report Dictated By: Alan Encarnacion MD at 02/23/2018 8:33 PM Report E-Signed By: Alan Encarnacion MD at 02/23/2018 8:40 PM WSN:[id number]
[2018-02-23 22:40] VITALS: BP 154/91
--- NOTE | 2018-02-23 22:43 | RADIOLOGY IMAGING REPORT ---
FACILITY: [facility] [place] PATIENT NAME: Rito Falk : 1965 MR: [id number] V: [id number] EXAM DATE: ORDERING PHYSICIAN: JONNY ELISE TECHNOLOGIST: Location: [facility] Patient: Rito Falk : 1965 Visit/Account:[id number] Date of Sevice: 02/23/2018 EXAMINATION: Limited right upper quadrant ultrasound Additional Pertinent history: Abdominal pain. Distended gallbladder on CT scan. COMPARISON STUDIES: CT of the abdomen pelvis done earlier in the day. FINDINGS: Gallbladder: no stones, sludge, wall thickening or pericholecystic fluid. Patient was tender during t he exam. Gallbladder is mildly distended without focal abnormality. Liver: Normal size and echotexture. No focal abnormality and a smooth surface. Portal vein is patent. No ascites. Common duct: Mildly dilated up to 9.1 mm however tapers towards the pancreatic duct. This is unchange d from CT scan. No intraductal abnormality is identified. Pancreas: No focal abnormality. Right kidney: negative Proximal IVC/Aorta: negative IMPRESSION: 1. Gallbladder is mildly distended but shows no focal normality. The patient was tender during the ex am. 2. Common bile duct is mildly dilated. It does appear to taper to the pancreas. No intraductal abnorm ality is identified. This is unchanged from the CT scan. Report Dictated By: Cheikh Yepez at 02/23/2018 10:35 PM Report E-Signed By: Cheikh Yepez at 02/23/2018 10:39 PM WSN:[id number]
[2018-02-23] MEDS ORDERED: NS(*) 0.9% 1000 ML BAG 1,000 ML IV ONE (22:45)
[2018-02-23] MEDS ORDERED: ONDA4TAB97 PO (23:09)
[2018-02-23] MEDS ORDERED: ONDANSETRON 4 MG ODT TH SL ONE (23:10)
[2018-02-24] MEDS ORDERED: OMEP-125 PO (12:56)
== END 2018-02-23 23:23 | disposition home or self-care (01) ==
LOC: ER 18:12
DX: R10.30 Lower abdominal pain, unspecified (principal); K82.9 Disease of gallbladder, unspecified
CPT/HCPCS: 74177; 76705; 81001; 85025; 96361; 96374; 96375; 99284; J2270; J2405; J7030; Q9967; S0119; 82040; 82247; 82310; 82374; 82435; 82565; 82947; 84075; 84132; 84155; 84295; 84450; 84460; 84520

== ENCOUNTER 2018-02-24 09:17 | Emergency (ER) | payer SELFPAY ==
--- NOTE | 2018-02-24 09:14 | ER Report ---
History and Physical Time Seen By MD: 09:14 (LEAH LAMBERT MD) Time Seen By MD: 10:59 (JONNY ELISE) HPI/ROS CHIEF COMPLAINT: Recurrent abdominal pain HISTORY OF PRESENT ILLNESS: This is a 53-year-old male who returns to the emergency department for abdominal pain and nausea and vomiting. Patient was seen and evaluated here yesterday by me, had a CT and ultrasound which showed a dilated gallbladder but no cholecystitis, patient's blood work was unremarkable yesterday. Ultimately we decided to send the patient home last night, he was going to follow-up with the [facility] and also a follow-up with Dr. Kurtz. Patient states that the pain returned this morning decided to come in for reevaluation. Patient denies any significant changes, other than the recurrent abdominal pain, and the vomiting. No fevers or chills. No visual changes, no chest pain or shortness of breath. REVIEW OF SYSTEMS: Constitutional: No fever, no chills. Eyes: No discharge. ENT: No sore throat. Cardiovascular: No chest pain, no palpitations. Respiratory: No cough, no shortness of breath. Gastrointestinal: As above. Genitourinary: No hematuria. Musculoskeletal: No back pain. Skin: No rashes. Neurological: No headache. (JONNY ELISE) Allergies: Coded Allergies: No Known Drug Allergies (Unverified , 02/08/18) Home Meds Active Scripts Omeprazole (OMEPRAZOLE) 20 Mg Capsule., 1 CAP PO QDAY for 30 Days, #30 CAP 0 Refills Prov:JONNY ELISE 02/24/18 Ondansetron Hcl (ZOFRAN) 4 Mg Tablet, 4 MG PO Q12H, #8 TAB 0 Refills Prov:JONNY ELISE 02/23/18 Past Medical/Surgical History The patient has a past medical and surgical history of back pain, wears glasses, occasionally uses alcohol, poor dentition. (JONNY ELISE) Reviewed Nurses Notes: Yes (JONNY ELISE) Hx Smoking: Yes (1/2PPD) Smoking Status: Current: Every Day Smoker Hx Substance Use Disorder: No Hx Alcohol Use: Yes (OCCASSIONAL ) (LEAH LAMBERT MD) Constitutional Vital Sign - Last 24 Hours 02/24/18 02/24/18 02/24/18 02/24/18 09:22 09:28 09:30 09:45 Temp 97.8 Pulse 75 70 71 Resp 18 B/P (MAP) 137/86 117/80 (92) Pulse Ox 95 96 95 O2 Delivery Nasal Cannula O2 Flow Rate 2.0 02/24/18 02/24/18 02/24/18 02/24/18 10:00 10:15 10:30 10:45 Pulse 71 73 73 B/P (MAP) 110/76 (87) 109/79 (89) Pulse Ox 94 94 94 94 02/24/18 02/24/18 02/24/18 02/24/18 11:00 11:15 11:30 11:45 Pulse 72 77 B/P (MAP) 111/79 (90) 110/75 (87) Pulse Ox 94 94 96 02/24/18 02/24/18 02/24/18 12:00 12:15 13:03 Pulse 69 70 68 B/P (MAP) 117/73 (88) 130/73 (92) Pulse Ox 96 98 91 (JONNY ELISEP-BC) Physical Exam General Appearance: The patient is alert, has no immediate need for airway protection and no signs of toxicity. Eyes: Pupils equal and round no pallor or injection. ENT, Mouth: Mucous membranes are moist. Respiratory: There are no retractions, lungs are clear to auscultation. Cardiovascular: Regular rate and rhythm. Gastrointestinal: Abdomen is soft, diffuse abdominal pain, hyperactive bowel sounds throughout. No masses. Neurological: Alert and oriented 4. Moving all extremities. Following all commands. No focal neuro deficits. Skin: Warm and dry, no rashes. Musculoskeletal: Neck is supple non tender. Extremities are nontender, nonswollen and have full range of motion. DIFFERENTIAL DIAGNOSIS: After history and physical exam differential diagnosis was considered for abdominal pain including but not limited to appendicitis, cholecystitis, gastritis and urinary tract infection. (JONNY ELISE-BC) Medical Decision Making Data Points Result Diagram: 02/24/1820 02/24/18919 Laboratory Hematology Test 02/24/18 09:20 Red Blood Count 5.24 M/uL (4.00-5.60) Mean Corpuscular Volume 101.0 fL (80.0-96.0) Mean Corpuscular Hemoglobin 35.0 pg (26.0-33.0) Mean Corpuscular Hemoglobin Concent 34.7 g/dL (32.0-36.0) Red Cell Distribution Width 13.6 % (11.5-14.5) Mean Platelet Volume 10.7 fL (7.2-11.1) Neutrophils (%) (Auto) 74.6 % (39.4-72.5) Lymphocytes (%) (Auto) 14.6 % (17.6-49.6) Monocytes (%) (Auto) 9.5 % (4.1-12.4) Eosinophils (%) (Auto) 0.4 % (0.4-6.7) Basophils (%) (Auto) 0.9 % (0.3-1.4) Nucleated RBC Relative Count (auto) 0.2 /100WBC Neutrophils # (Auto) 6.4 K/uL (2.0-7.4) Lymphocytes # (Auto) 1.3 K/uL (1.3-3.6) Monocytes # (Auto) 0.8 K/uL (0.3-1.0) Eosinophils # (Auto) 0.0 K/uL (0.0-0.5) Basophils # (Auto) 0.1 K/uL (0.0-0.1) Nucleated RBC Absolute Count (auto) 0.01 K/uL Sodium Level 140 mmol/L (137-145) Potassium Level 4.0 mmol/L (3.5-5.0) Chloride Level 103 mmol/L (98-107) Carbon Dioxide Level 25 mmol/L (22-30) Blood Urea Nitrogen 9 mg/dl (9-21) Creatinine 0.70 mg/dl (0.66-1.25) Glomerular Filtration Rate Calc > 60.0 Random Glucose 110 mg/dl (75-110) Calcium Level 9.3 mg/dl (8.4-10.2) Total Bilirubin 1.2 mg/dl (0.2-1.3) Aspartate Amino Transf (AST/SGOT) 92 U/L (0-35) Alanine Aminotransferase (ALT/SGPT) 81 U/L (0-56) Alkaline Phosphatase 65 U/L (0-126) Total Protein 7.7 g/dl (6.3-8.2) Albumin 4.2 g/dl (3.5-5.0) Lipase 60 U/L (23-300) Helicobacter pylori IgG Antibody Negative (NEGATIVE) Chemistry Test 02/24/18 09:20 White Blood Count 8.6 k/uL (4.5-11.0) Red Blood Count 5.24 M/uL (4.00-5.60) Hemoglobin 18.4 g/dL (14.0-18.0) Hematocrit 52.9 % (42.0-52.0) Mean Corpuscular Volume 101.0 fL (80.0-96.0) Mean Corpuscular Hemoglobin 35.0 pg (26.0-33.0) Mean Corpuscular Hemoglobin Concent 34.7 g/dL (32.0-36.0) Red Cell Distribution Width 13.6 % (11.5-14.5) Platelet Count 95 K/uL (150-450) Mean Platelet Volume 10.7 fL (7.2-11.1) Neutrophils (%) (Auto) 74.6 % (39.4-72.5) Lymphocytes (%) (Auto) 14.6 % (17.6-49.6) Monocytes (%) (Auto) 9.5 % (4.1-12.4) Eosinophils (%) (Auto) 0.4 % (0.4-6.7) Basophils (%) (Auto) 0.9 % (0.3-1.4) Nucleated RBC Relative Count (auto) 0.2 /100WBC Neutrophils # (Auto) 6.4 K/uL (2.0-7.4) Lymphocytes # (Auto) 1.3 K/uL (1.3-3.6) Monocytes # (Auto) 0.8 K/uL (0.3-1.0) Eosinophils # (Auto) 0.0 K/uL (0.0-0.5) Basophils # (Auto) 0.1 K/uL (0.0-0.1) Nucleated RBC Absolute Count (auto) 0.01 K/uL Glomerular Filtration Rate Calc > 60.0 Calcium Level 9.3 mg/dl (8.4-10.2) Total Bilirubin 1.2 mg/dl (0.2-1.3) Aspartate Amino Transf (AST/SGOT) 92 U/L (0-35) Alanine Aminotransferase (ALT/SGPT) 81 U/L (0-56) Alkaline Phosphatase 65 U/L (0-126) Total Protein 7.7 g/dl (6.3-8.2) Albumin 4.2 g/dl (3.5-5.0) Lipase 60 U/L (23-300) Helicobacter pylori IgG Antibody Negative (NEGATIVE) (JONNY ELISE) ED Course/Re-evaluation Clinical Indication for ER IV: Hydration, IV Access ED Course The patient was admitted to a room. History of physical or pain. Differential diagnoses were considered. An IV was started. A CBC, CMP were obtained. Lab studies showing H&H 18.4 and 52.9, this is likely hemoconcentrated due to the patient's lack of intake over the last evening and is episodes of vomiting. Chemistry showing AST 92, ALT 81. No repeat studies were obtained. Patient was given a GI cocktail. Patient was also given 4 mg IV Zofran, 4 mg IV morphine. I did review the laboratory studies with the patient, I also spoke with Dr. Kurtz as noted below, he felt that the patient would benefit from an upper GI suggested starting him on a PPI. Patient's H. pylori was negative. Patient was started on omeprazole. Patient had significant relief from the GI cocktail. Patient will berry picker his prescription omeprazole and Zofran at the pharmacy. He will also follow-up with the [facility] and Dr. Kurtz's office. The patient had no other questions or concerns at this time and was discharged home. I did tell patient that the GI discomfort that he is having could be gastric irritation, patient denies drinking alcohol but only on occasion. 02/24/2018 12:14:10 pm I did speak with Dr. Kurtz regarding the patient's case, he suggested starting the patient on a PPI, checking an H. pylori and would likely need an upper GI, he states he'll try to have his nurse contact the patient to schedule an upper GI. Decision to Disposition Date: Feb 24, 2018 Decision to Disposition Time: 12:54 (JONNY ELISE) Depart Departure Latest Vital Signs Vital Signs Date Time Temp Pulse Resp B/P (MAP) Pulse Ox O2 Delivery O2 Flow Rate FiO2 02/24/18 13:03 68 130/73 (92) 91 02/24/18 09:28 2.0 02/24/18 09:22 97.8 18 [facility]al Cannula [facility] Impression: Primary Impression: Abdominal pain of unknown etiology Condition: Improved Disposition: HOME OR SELF-CARE Referrals: FRNAKY MCKEON (PCP) ROBBY HUYNH MD New Scripts Omeprazole (OMEPRAZOLE) 20 Mg Capsule.dr 1 CAP PO QDAY for 30 Days, #30 CAP 0 Refills Prov: JONNY ELISE 02/24/18 Patient Instructions: Abdominal Pain (ED) Additional Instructions: Your blood work does not show anything concerning today. I did speak with Dr. Kurtz regarding her symptoms and his recommendation was an upper GI study, his nurse will contact you within the next couple of days, if you do not heard anything by the end of week to schedule an appointment please call his office. Please start the omeprazole, 20 mg a day for 30 days. Avoid any alcohol or spicy foods. Take the Zofran as needed for nausea and vomiting. Try to get plenty of fluids. Get plenty of rest. Return to the ER for any other concerns or worsening symptoms. LEAH LAMBERT MD Feb 24, 2018 09:14 JONNY ELISE Feb 24, 2018 10:59
[~2018-02-24 09:17] MED LIST changes: -OMEP-125 PO
[2018-02-24] MEDS ORDERED: NS(*) 0.9% 1000 ML BAG 1,000 ML IV ONE (11:02)
[2018-02-24] MEDS ORDERED: ONDANSETRON 4 MG/2 ML VIAL IVP ONE (11:05)
[2018-02-24] MEDS ORDERED: MORPHINE 4 MG/ML SDV IVP ONE (11:05)
[2018-02-24 11:14] LABS: PLATELET COUNT, AUTOMATED 95 K/uL (150-450)
[2018-02-24] MEDS ORDERED: EMS NS 0.9%(*) 1000 ML BAG 1,000 ML IV ONE (11:15)
[2018-02-24] MEDS ORDERED: ATRO/SCOPOL/HYOSCY/PB 5 ML ELX PO ONE (12:05)
[2018-02-24] MEDS ORDERED: MAG HYD/AL HYD/SIMETH 30ML UDC PO ONE (12:05)
[2018-02-24] MEDS ORDERED: LIDOCAINE 2% VISC SLN 15ML UDC PO ONE (12:05)
[2018-02-24] MEDS ORDERED: OMEP-125 PO (12:56)
[2018-02-24 13:03] VITALS: BP 130/73
== END 2018-02-24 13:10 | disposition home or self-care (01) ==
LOC: ER 09:21
DX: R10.9 Unspecified abdominal pain (principal)
CPT/HCPCS: 83690; 85025; 86677; 96361; 96374; 96375; 99284; J2270; J2405; 82040; 82247; 82310; 82374; 82435; 82565; 82947; 84075; 84132; 84155; 84295; 84450; 84460; 84520

== ENCOUNTER → 2018-02-24 | Outpatient (CLI) | payer SELFPAY ==
[~2018-02-24] MED LIST changes: +OMEP-125 PO; +ONDA4TAB97 PO
== END ==
LOC: AMB 08:59
PROVIDERS: ATTEND Nurse Practitioner
DX: R10.9 Unspecified abdominal pain (principal); R11.10 Vomiting, unspecified; R19.7 Diarrhea, unspecified; R19.30 Abdominal rigidity, unspecified site
CPT/HCPCS: A0425; A0427

== ENCOUNTER 2018-03-08 19:58 | Emergency (ER) | payer SELFPAY ==
[~2018-03-08 19:58] MED LIST changes: -CIPR-214 PO; -DICY10CA11 PO; -METR-160 PO
--- NOTE | 2018-03-08 20:02 | ER Report ---
History and Physical Time Seen By MD: 19:54 HPI/ROS CHIEF COMPLAINT: Altered mental status, abdominal pain HISTORY OF PRESENT ILLNESS: 53-year-old male patient presents to emergency room with complaint of altered mental status and abdominal pain. Patient has not been acting normally throughout most the day. He gone shopping with some friends and wanted often wandered into traffic. They did gathering up and took him home. We'll use a home he was acting like himself. EMS contacted and he was brought into the emergency room. Patient has pain to the left flank. He denies having any diarrhea. He denies having any nausea. Patient states that he is on medications which were brought in. He states that his pain has gotten worse since he was evaluated previously. Patient was evaluated here in the emergency room and then followed up with a primary care provider. REVIEW OF SYSTEMS: Respiratory: No cough, no dyspnea. Cardiovascular: No chest pain, no palpitations. Gastrointestinal: As noted above Musculoskeletal: No back pain. Allergies: Coded Allergies: No Known Drug Allergies (Unverified , 02/08/18) Home Meds Active Scripts Omeprazole (OMEPRAZOLE) 20 Mg Capsule.dr, 1 CAP PO QDAY for 30 Days, #30 CAP 0 Refills Prov:JONNY ELISE [facility] 02/24/18 Ondansetron Hcl (ZOFRAN) 4 Mg Tablet, 4 MG PO Q12H, #8 TAB 0 Refills Prov:JONNY ELISE [facility] 02/23/18 Reported Medications Metronidazole (METRONIDAZOLE) 500 Mg Tablet, 500 MG PO TID, TAB 03/08/18 Dicyclomine Hcl (DICYCLOMINE HCL) 10 Mg Capsule, 10 MG PO QID, CAPSULE 03/08/18 Ciprofloxacin Hcl (CIPROFLOXACIN HCL) 500 Mg Tablet, 500 MG PO Q12H, #14 TAB 03/08/18 Past Medical/Surgical History Patient has a past medical history of pneumonia, back pain, alcohol use. Patient denies any pertinent surgical history. Patient has a family medical history of cancer, diabetes. Reviewed Nurses Notes: Yes Hx Smoking: Yes (1/2PPD) Smoking Status: Current: Every Day Smoker Hx Substance Use Disorder: No Hx Alcohol Use: Yes (OCCASSIONAL ) Constitutional Vital Sign - Last 24 Hours 03/08/18 19:59 Temp 97.8 Pulse 70 Resp 16 B/P (MAP) 143/91 Pulse Ox 95 O2 Delivery Room Air Physical Exam General Appearance: The patient is alert, has no immediate need for airway protection and no current signs of toxicity. Patient is alert, he is responding to questions, patient is not sure who he is, is unsure where he is at Respiratory: Chest is non tender, lungs are clear to auscultation. Cardiac: regular rate and rhythm Gastrointestinal: Abdomen is soft and tender in the left upper and lower quadrants, no masses, bowel sounds are hypoactive. Musculoskeletal: Neck: Neck is supple and non tender. Extremities have full range of motion and are non tender. Skin: No rashes or lesions. DIFFERENTIAL DIAGNOSIS: After history and physical exam differential diagnosis was considered for altered mental status including but not limited to hypogl ycemia, infectious process, electrolyte abnormality, head injury and intoxicants. Abdominal pain differential including but not limited to appendicitis, cholecystitis, gastritis and urinary tract infection. Medical Decision Making Data Points Result Diagram: 03/08/18201603/08/182016 Laboratory Hematology Test 03/08/18 20:17 03/08/18 20:41 Red Blood Count 5.29 M/uL (4.00-5.60) Mean Corpuscular Volume 99.2 fL (80.0-96.0) Mean Corpuscular Hemoglobin 34.8 pg (26.0-33.0) Mean Corpuscular Hemoglobin Concent 35.0 g/dL (32.0-36.0) Red Cell Distribution Width 13.7 % (11.5-14.5) Mean Platelet Volume 9.5 fL (7.2-11.1) Neutrophils (%) (Auto) 47.7 % (39.4-72.5) Lymphocytes (%) (Auto) 40.8 % (17.6-49.6) Monocytes (%) (Auto) 8.1 % (4.1-12.4) Eosinophils (%) (Auto) 2.1 % (0.4-6.7) Basophils (%) (Auto) 1.3 % (0.3-1.4) Nucleated RBC Relative Count (auto) 0.0 /100WBC Neutrophils # (Auto) 2.2 K/uL (2.0-7.4) Lymphocytes # (Auto) 1.9 K/uL (1.3-3.6) Monocytes # (Auto) 0.4 K/uL (0.3-1.0) Eosinophils # (Auto) 0.1 K/uL (0.0-0.5) Basophils # (Auto) 0.1 K/uL (0.0-0.1) Nucleated RBC Absolute Count (auto) 0.00 K/uL Peripheral Blood Smear Yes Y/N Sodium Level 141 mmol/L (137-145) Potassium Level 4.7 mmol/L (3.5-5.0) Chloride Level 104 mmol/L (98-107) Carbon Dioxide Level 25 mmol/L (22-30) Blood Urea Nitrogen 9 mg/dl (9-21) Creatinine 0.80 mg/dl (0.66-1.25) Glomerular Filtration Rate Calc > 60.0 Random Glucose 101 mg/dl (75-110) Calcium Level 9.2 mg/dl (8.4-10.2) Total Bilirubin 0.4 mg/dl (0.2-1.3) Aspartate Amino Transf (AST/SGOT) 134 U/L (0-35) Alanine Aminotransferase (ALT/SGPT) 104 U/L (0-56) Alkaline Phosphatase 66 U/L (0-126) Ammonia < 9 UMOL/L (9-33) Troponin I < 0.012 ng/ml Total Protein 7.1 g/dl (6.3-8.2) Albumin 3.9 g/dl (3.5-5.0) Amylase Level 50 U/L (0-110) Lipase 194 U/L (23-300) Serum Alcohol 198 mg/dl Urine Color Yellow Urine Clarity Clear Urine pH 5.0 pH (4.8-9.5) Urine Specific [place] 1.015 Urine Protein Negative mg/dL (NEGATIVE) Urine Glucose (UA) Negative mg/dL (NEGATIVE) Urine Ketones Negative mg/dL (NEGATIVE) Urine Blood Negative (NEGATIVE) Urine Nitrite Negative (NEGATIVE) Urine Bilirubin Negative (NEGATIVE) Urine Urobilinogen 2.0 mg/dL (0.2-1.9) Urine Leukocyte Esterase Trace (NEGATIVE) Urine RBC None /HPF (0-2/HPF) Urine WBC None /HPF (0-5/HPF) Urine Squamous Epithelial Cells Few /LPF (</=FEW) Urine Bacteria Negative /HPF (NONE-FEW) Urine Mucus Few /HPF (NONE-FEW) Urine Opiates Screen Negative Urine Barbiturates Screen Negative Ur Tricyclic Antidepressants Screen Negative Urine Phencyclidine Screen Negative Urine Amphetamines Screen Negative Urine Benzodiazepines Screen Negative Urine Cocaine Screen Negative Urine Cannabinoids Screen Negative Chemistry Test 03/08/18 20:17 03/08/18 20:41 White Blood Count 4.6 k/uL (4.5-11.0) Red Blood Count 5.29 M/uL (4.00-5.60) Hemoglobin 18.4 g/dL (14.0-18.0) Hematocrit 52.5 % (42.0-52.0) Mean Corpuscular Volume 99.2 fL (80.0-96.0) Mean Corpuscular Hemoglobin 34.8 pg (26.0-33.0) Mean Corpuscular Hemoglobin Concent 35.0 g/dL (32.0-36.0) Red Cell Distribution Width 13.7 % (11.5-14.5) Platelet Count 96 K/uL (150-450) Mean Platelet Volume 9.5 fL (7.2-11.1) Neutrophils (%) (Auto) 47.7 % (39.4-72.5) Lymphocytes (%) (Auto) 40.8 % (17.6-49.6) Monocytes (%) (Auto) 8.1 % (4.1-12.4) Eosinophils (%) (Auto) 2.1 % (0.4-6.7) Basophils (%) (Auto) 1.3 % (0.3-1.4) Nucleated RBC Relative Count (auto) 0.0 /100WBC Neutrophils # (Auto) 2.2 K/uL (2.0-7.4) Lymphocytes # (Auto) 1.9 K/uL (1.3-3.6) Monocytes # (Auto) 0.4 K/uL (0.3-1.0) Eosinophils # (Auto) 0.1 K/uL (0.0-0.5) Basophils # (Auto) 0.1 K/uL (0.0-0.1) Nucleated RBC Absolute Count (auto) 0.00 K/uL Peripheral Blood Smear Yes Y/N Glomerular Filtration Rate Calc > 60.0 Calcium Level 9.2 mg/dl (8.4-10.2) Total Bilirubin 0.4 mg/dl (0.2-1.3) Aspartate Amino Transf (AST/SGOT) 134 U/L (0-35) Alanine Aminotransferase (ALT/SGPT) 104 U/L (0-56) Alkaline Phosphatase 66 U/L (0-126) Ammonia < 9 UMOL/L (9-33) Troponin I < 0.012 ng/ml Total Protein 7.1 g/dl (6.3-8.2) Albumin 3.9 g/dl (3.5-5.0) Amylase Level 50 U/L (0-110) Lipase 194 U/L (23-300) Serum Alcohol 198 mg/dl Urine Color Yellow Urine Clarity Clear Urine pH 5.0 pH (4.8-9.5) Urine Specific [place] 1.015 Urine Protein Negative mg/dL (NEGATIVE) Urine Glucose (UA) Negative mg/dL (NEGATIVE) Urine Ketones Negative mg/dL (NEGATIVE) Urine Blood Negative (NEGATIVE) Urine Nitrite Negative (NEGATIVE) Urine Bilirubin Negative (NEGATIVE) Urine Urobilinogen 2.0 mg/dL (0.2-1.9) Urine Leukocyte Esterase Trace (NEGATIVE) Urine RBC None /HPF (0-2/HPF) Urine WBC None /HPF (0-5/HPF) Urine Squamous Epithelial Cells Few /LPF (</=FEW) Urine Bacteria Negative /HPF (NONE-FEW) Urine Mucus Few /HPF (NONE-FEW) Urine Opiates Screen Negative Urine Barbiturates Screen Negative Ur Tricyclic Antidepressants Screen Negative Urine Phencyclidine Screen Negative Urine Amphetamines Screen Negative Urine Benzodiazepines Screen Negative Urine Cocaine Screen Negative Urine Cannabinoids Screen Negative Toxicology Test 03/08/18 20:17 03/08/18 20:41 Serum Alcohol 198 mg/dl Urine Opiates Screen Negative Urine Barbiturates Screen Negative Ur Tricyclic Antidepressants Screen Negative Urine Phencyclidine Screen Negative Urine Amphetamines Screen Negative Urine Benzodiazepines Screen Negative Urine Cocaine Screen Negative Urine Cannabinoids Screen Negative Urinalysis Test 03/08/18 20:41 Urine Color Yellow Urine Clarity Clear Urine pH 5.0 pH (4.8-9.5) Urine Specific [place] 1.015 Urine Protein Negative mg/dL (NEGATIVE) Urine Glucose (UA) Negative mg/dL (NEGATIVE) Urine Ketones Negative mg/dL (NEGATIVE) Urine Blood Negative (NEGATIVE) Urine Nitrite Negative (NEGATIVE) Urine Bilirubin Negative (NEGATIVE) Urine Urobilinogen 2.0 mg/dL (0.2-1.9) Urine Leukocyte Esterase Trace (NEGATIVE) Urine RBC None /HPF (0-2/HPF) Urine WBC None /HPF (0-5/HPF) Urine Squamous Epithelial Cells Few /LPF (</=FEW) Urine Bacteria Negative /HPF (NONE-FEW) Urine Mucus Few /HPF (NONE-FEW) EKG/Imaging EKG Interpretation 12 lead EKG: Rhythm: normal sinus rhythm [place]: normal QRS: Incomplete right bundle branch block ST segments: Nonspecific ST abnormality Imaging Computed tomograpy abdomen and pelvis with IV contrast Indication: Abdominal pain. Comparison: 02/23/2018. Technique: Transaxial computed tomography images were obtained through the abdomen and pelvis following the injection of nonionic iodinated intravenous contrast. Reformatted coronal and sagittal images were also obtained. One of the following dose optimization techniques was utilized in the performance of this exam: Automated exposure control; adjustment of the mA and/or kV according to the patient's size; or use of an iterative reconstruction technique. Specific details can be referenced in the facility's radiology CT exam operational policy. Contrast: 75 ml of Isovue-370 IV contrast. Findings: Lower lung key: Minimal dependent atelectasis. Liver: There is diffuse fatty liver. Subtle nodularity of the liver contours is present which may reflect changes of cirrhosis. Correlate clinically. No intrahepatic biliary dilatation. Biliary: Gallbladder is distended and has a similar appearance to the prior exam. No calcified stones. No wall thickening or surrounding inflammation. Common bile duct appears normal in caliber on today's study. Pancreas: Normal appearance. Spleen: Upper limits of normal for size. Adrenal glands: Unremarkable. Kidneys / retroperitoneum: No stones or hydronephrosis. Bowel / peritoneum / mesenteries: The visualized small and large bowel appear unremarkable. Appendix is well-seen and is normal. Lymph node assessment: There are scattered leonardo hepatis and celiac axis lymph nodes identified. These nodes have a similar distribution to the prior exam. A leonardo hepatis node on image 30 measures 2.1 x 1.2 cm and previously measured 1.7 x 1.2 cm. A portacaval node on image 39 measures 1.4 x 2.6 cm and previously measured 1.2 x 2.7 cm. These nodes are nonspecific. Other scattered nodes in this region are similar. Pelvic structures: Appear unremarkable. No free pelvic fluid. No free intraperitoneal air. Vessels: Scattered atherosclerotic calcifications seen throughout a nonaneurysmal abdominal aorta and branches. Musculoskeletal / Body wall: No acute or aggressive osseous abnormality. IMPRESSION: 1. Distention of the gallbladder without wall thickening or surrounding inflammatory changes. Appearance is similar to 02/23/2018. 2. No evidence of biliary dilatation. Common bile duct is normal in caliber on today's exam. 3. Nonspecific perihepatic and celiac axis lymphadenopathy. Overall appearance and distribution is not significantly changed. At minimum, continued follow-up is recommended. 4. Diffuse fatty liver. 5. Subtle nodularity of the liver contours suggesting cirrhotic change. Report Dictated By: Kenn Tavarez at 03/08/2018 10:18 PM Report E-Signed By: Kenn Tavarez at 03/08/2018 10:[address] Head without contrast Indication: Abdominal pain. Intermittent confusion. Comparison: 02/08/2018 Technique: Axial CT images were obtained through the brain from the skull base to the vertex without administration of IV contrast. Reformatted coronal and sagittal images were also obtained. One of the following dose optimization techniques was utilized in the performance of this exam: Automated exposure control; adjustment of the mA and/or kV according to the patient's size; or use of an iterative reconstruction technique. Specific details can be referenced in the facility's radiology CT exam operational policy. Findings: No evidence of mass, mass effect, or midline shift. No acute intracranial hemorrhage or acute territorial infarction. There is preservation of the angelo-white matter junction. Ventricles are normal and symmetric. The visualized paranasal sinuses and mastoid air cells are clear. IMPRESSION: 1. Normal CT examination of the brain. No interval change from 02/08/2018. Report Dictated By: Kenn Tavarez at 03/08/2018 10:13 PM Report E-Signed By: Kenn Tavarez at 03/08/2018 10:18 PM ED Course/Re-evaluation ED Course Patient was admitted to an exam room, history and physical were obtained. Differential diagnoses were considered. On examination lungs are clear, heart is regular, abdomen is soft and tender diffusely. Patient was unable to tell me where he was or who he was. As result that a CBC, CMP, ammonia level, EKG, troponin were done. Lab results were unremarkable except patient did have a blood alcohol of 198. A drug screen was done as well as urinalysis and those were negative. A CT scan of the head as well as the abdomen and pelvis were done. There is no acute changes in the head nor in the abdomen. I discussed the findings with the patient. Informed him that I believe that the altered mental status was likely secondary to alcohol consumption. We will go ahead and d ischarge patient home at this time. I would like and go ahead and continue with his normal medications. I would like him follow-up Dr. Browne as previously scheduled. He is to return to emergency room if condition worsens. Patient verbalized understanding and agreement with plan. Decision to Disposition Date: Mar 08, 2018 Decision to Disposition Time: 22:45 Depart Departure Latest Vital Signs Vital Signs Date Time Temp Pulse Resp B/P (MAP) Pulse Ox O2 Delivery O2 Flow Rate FiO2 03/08/18 19:59 97.8 70 16 143/91 95 Room Air Impression: Primary Impression: Alcohol intoxication Additional Impression: Abdominal pain Condition: Improved Disposition: HOME OR SELF-CARE Referrals: FRANKY MCKEON (PCP) Patient Instructions: Alcohol Intoxication (ED) Additional Instructions: Follow up with Dr. Browne as previously scheduled. Return to the ER if condition worsens. Avoid alcohol while you are taking the Flagyl. Clear liquid diet for the next 24 hours and then advance diet as tolerated. Increase fluid intake. Continue with your current prescriptions. Problem Qualifiers Primary Impression: Alcohol intoxication Complication of substance-induced condition: uncomplicated Qualified Codes: F10.920 - Alcohol use, unspecified with intoxication, uncomplicated Additional Impression: Abdominal pain Abdominal location: generalized Qualified Codes: R10.84 - Generalized abdominal pain LISA WILCOX Mar 08, 2018 20:02
[2018-03-08] MEDS ORDERED: NS(*) 0.9% 1000 ML BAG 1,000 ML IV ONE (20:03)
[2018-03-08] MEDS ORDERED: CIPR-214 PO (20:05)
[2018-03-08] MEDS ORDERED: DICY10CA11 PO (20:08)
[2018-03-08] MEDS ORDERED: METR-160 PO (20:08)
[2018-03-08 20:25] LABS: PLATELET COUNT, AUTOMATED 96 K/uL (150-450)
[2018-03-08] MEDS ORDERED: IOPAMIDOL 76% 75 ML INFUS BTL 75 ML ONE (20:49)
--- NOTE | 2018-03-08 21:30 | EKG ---
FACILITY: [facility] [place] PATIENT NAME: JOSE ENRIQUE SYLVESTER : [id number] MR: [id number] V: [id number] EXAM DATE: ORDERING PHYSICIAN: LISA WILCOX TECHNOLOGIST: JV Test Reason : STOMACH PAIN Blood Pressure : / mmHG Vent. Rate : 069 BPM Atrial Rate : 069 BPM P-R Int : 150 ms QRS Dur : 102 ms QT Int : 428 ms P-R-T Axes : 058 -70 018 degrees QTc Int : 458 ms Normal sinus rhythm Left anterior fascicular block T inversion consistent with septal ischemia vs normal variant When compared with ECG of 08-FEB-2018 15:12, Relatively unchanged Confirmed by MALOU SUAREZ ([id number]) on 03/09/2018 2:52:27 PM Referred By: LISA Confirmed By:MALOU SUAREZ
[2018-03-08 22:00] VITALS: BP 133/90
--- NOTE | 2018-03-08 22:23 | RADIOLOGY IMAGING REPORT ---
FACILITY: [facility] PATIENT NAME: Rito Falk : 1965 MR: [id number] V: [id number] EXAM DATE: ORDERING PHYSICIAN: LISA WILCOX TECHNOLOGIST: Location: [facility] Patient: Rito Falk : 1965 Visit/Account:[id number] Date of Sevice: 03/08/2018 CT Head without contrast Indication: Abdominal pain. Intermittent confusion. Comparison: 02/08/2018 Technique: Axial CT images were obtained through the brain from the skull base to the vertex without administration of IV contrast. Reformatted coronal and sagittal images were also obtained. One of the following dose optimization techniques was utilized in the performance of this exam: Autom ated exposure control; adjustment of the mA and/or kV according to the patient's size; or use of an i terative reconstruction technique. Specific details can be referenced in the facility's radiology C T exam operational policy. Findings: No evidence of mass, mass effect, or midline shift. No acute intracranial hemorrhage or acute territorial infarction. There is preservation of the angelo-white matter junction. Ventricles are normal and symmetric. The visualized paranasal sinuses and mastoid air cells are clear. IMPRESSION: 1. Normal CT examination of the brain. No interval change from 02/08/2018. Report Dictated By: Kenn Tavarez at 03/08/2018 10:13 PM Report E-Signed By: Kenn Tavarez at 03/08/2018 10:18 PM WSN:[id number]
--- NOTE | 2018-03-08 22:35 | RADIOLOGY IMAGING REPORT ---
FACILITY: [facility] [place] PATIENT NAME: Rito Falk : 1965 MR: [id number] V: [id number] EXAM DATE: ORDERING PHYSICIAN: LISA WILCOX TECHNOLOGIST: Location: [facility] Patient: Rito Falk : 1965 Visit/Account:[id number] Date of Sevice: 03/08/2018 Computed tomograpy abdomen and pelvis with IV contrast Indication: Abdominal pain. Comparison: 02/23/2018. Technique: Transaxial computed tomography images were obtained through the abdomen and pelvis follo wing the injection of nonionic iodinated intravenous contrast. Reformatted coronal and sagittal image s were also obtained. One of the following dose optimization techniques was utilized in the performance of this exam: Autom ated exposure control; adjustment of the mA and/or kV according to the patient's size; or use of an i terative reconstruction technique. Specific details can be referenced in the facility's radiology C T exam operational policy. Contrast: 75 ml of Isovue-370 IV contrast. Findings: Lower lung key: Minimal dependent atelectasis. Liver: There is diffuse fatty liver. Subtle nodularity of the liver contours is present which may ref lect changes of cirrhosis. Correlate clinically. No intrahepatic biliary dilatation. Biliary: Gallbladder is distended and has a similar appearance to the prior exam. No calcified stones . No wall thickening or surrounding inflammation. Common bile duct appears normal in caliber on today 's study. Pancreas: Normal appearance. Spleen: Upper limits of normal for size. Adrenal glands: Unremarkable. Kidneys / retroperitoneum: No stones or hydronephrosis. Bowel / peritoneum / mesenteries: The visualized small and large bowel appear unremarkable. Appendix is well-seen and is normal. Lymph node assessment: There are scattered leonardo hepatis and celiac axis lymph nodes identified. Thes e nodes have a similar distribution to the prior exam. A leonardo hepatis node on image 30 measures 2.1 x 1.2 cm and previously measured 1.7 x 1.2 cm. A portacaval node on image 39 measures 1.4 x 2.6 cm an d previously measured 1.2 x 2.7 cm. These nodes are nonspecific. Other scattered nodes in this region are similar. Pelvic structures: Appear unremarkable. No free pelvic fluid. No free intraperitoneal air. Vessels: Scattered atherosclerotic calcifications seen throughout a nonaneurysmal abdominal aorta and branches. Musculoskeletal / Body wall: No acute or aggressive osseous abnormality. IMPRESSION: 1. Distention of the gallbladder without wall thickening or surrounding inflammatory changes. Appeara nce is similar to 02/23/2018. 2. No evidence of biliary dilatation. Common bile duct is normal in caliber on today's exam. 3. Nonspecific perihepatic and celiac axis lymphadenopathy. Overall appearance and distribution is no t significantly changed. At minimum, continued follow-up is recommended. 4. Diffuse fatty liver. 5. Subtle nodularity of the liver contours suggesting cirrhotic change. Report Dictated By: Kenn Tavarez at 03/08/2018 10:18 PM Report E-Signed By: Kenn Tavarez at 03/08/2018 10:31 PM WSN:[id number]
== END 2018-03-08 22:59 | disposition home or self-care (01) ==
LOC: ER 20:03
DX: F10.920 Alcohol use, unspecified with intoxication, uncomplicated (principal); R10.84 Generalized abdominal pain
CPT/HCPCS: 70450; 74177; 80305; 80320; 81001; 82140; 82150; 83690; 84443; 84484; 85025; 93005; 96360; 96361; 99284; J7030; Q9967; 82040; 82247; 82310; 82374; 82435; 82565; 82947; 84075; 84132; 84155; 84295; 84450; 84460; 84520

== ENCOUNTER → 2018-03-08 | Outpatient (CLI) | payer SELFPAY ==
[~2018-03-08] MED LIST changes: +CIPR-214 PO; +DICY10CA11 PO; +METR-160 PO; +OMEP-125 PO
== END ==
LOC: AMB 19:34
PROVIDERS: ATTEND Nurse Practitioner
DX: R41.82 Altered mental status, unspecified (principal); R10.12 Left upper quadrant pain
CPT/HCPCS: A0425; A0427

== ENCOUNTER 2018-03-19 03:09 | Emergency (ER) | payer SELFPAY ==
[~2018-03-19 03:09] MED LIST changes: -MULT-859 PO; -NIC10R INH
--- NOTE | 2018-03-19 03:14 | ER Report ---
History and Physical Time Seen By MD: 03:13 HPI/ROS CHIEF COMPLAINT: Hallucinations HISTORY OF PRESENT ILLNESS: 53-year-old male with a recent diagnosis of hepatitis C and liver cirrhosis, has decided to quit drinking. Patient admits to as many as 15 alcoholic drinks per day. He states he's reduce his alcohol intake and began to have hallucinations tonight. His significant other called the crisis line and advised that he be brought in for safe medical detox. Patient admits to 11 beers to the last 24 hours. Patient was recently seen in consultation by Dr. Kurtz general surgery for a dilated common bile duct. He is scheduled to have a hiatus scan on Friday. There is some outpatient diagnostic laboratory studies scanned in the computer under miscellaneous there were reviewed REVIEW OF SYSTEMS: Respiratory: No cough, no dyspnea. Cardiovascular: No chest pain, no palpitations. Gastrointestinal: No vomiting, no abdominal pain. Musculoskeletal: No back pain. Allergies: Coded Allergies: No Known Drug Allergies (Unverified , 02/08/18) Home Meds Discontinued Reported Medications Metronidazole (METRONIDAZOLE) 500 Mg Tablet, 500 MG PO TID, TAB 03/08/18 Dicyclomine Hcl (DICYCLOMINE HCL) 10 Mg Capsule, 10 MG PO QID, CAPSULE 03/08/18 Ciprofloxacin Hcl (CIPROFLOXACIN HCL) 500 Mg Tablet, 500 MG PO Q12H, #14 TAB 03/08/18 Discontinued Scripts Omeprazole (OMEPRAZOLE) 20 Mg Capsule., 1 CAP PO QDAY for 30 Days, #30 CAP 0 [facility]ills Prov[facility]- 02/24/18 Ondansetron Hcl (ZOFRAN) 4 Mg Tablet, 4 MG PO Q12H, #8 TAB 0 Refills Prov:[facility]- 02/23/18 Reviewed Nurses Notes: Yes Old Medical Records Reviewed: Yes Hx Smoking: Yes (1/2PPD X 40 YRS) Smoking Status: Current: Every Day Smoker Hx Substance Use Disorder: No Hx Alcohol Use: Yes (OCCASSIONAL ) Constitutional Vital Sign - Last 24 Hours 03/19/18 03/19/18 03/19/18 03/19/18 03:09 03:11 03:30 03:39 Temp 98.3 Pulse 76 76 Resp 14 B/P (MAP) 135/85 (102) 135/85 118/82 (94) Pulse Ox 92 91 O2 Delivery Room Air 03/19/18 03/19/18 03/19/18 04:00 04:09 04:30 Pulse 68 B/P (MAP) 110/78 (89) 103/75 (84) Pulse Ox 90 Physical Exam Vital signs stable, afebrile, pulse ox normal General Appearance: The patient is alert, has no immediate need for airway protection and no current signs of toxicity. Alert and oriented 3, HEENT: Pupils equal and round no injection. Anicteric sclera, TMs normal, oropharynx without redness or exudate, mucous. Membranes are moist Respiratory: Chest is non tender, lungs are clear to auscultation. Cardiac: regular rate and rhythm Gastrointestinal: Abdomen is soft and non tender, no masses, bowel sounds normal., No hepatomegaly, trace ascites Musculoskeletal: Neck: Neck is supple and non tender. Extremities have full range of motion and are non tender. Skin: No rashes or lesions. DIFFERENTIAL DIAGNOSIS: After history and physical exam differential diagnosis was considered for depression including functional and major depression, situational depression, medication side effect, alcohol dependence, alcohol withdrawal drugs and alcohol abuse. Medical Decision Making Data Points Result Diagram: 03/19/18 0330 03/19/18 0330 Laboratory Hematology Test 03/19/18 03:30 03/19/18 03:54 Red Blood Count 4.75 M/uL (4.00-5.60) Mean Corpuscular Volume 101.0 fL (80.0-96.0) Mean Corpuscular Hemoglobin 35.3 pg (26.0-33.0) Mean Corpuscular Hemoglobin Concent 34.9 g/dL (32.0-36.0) Red Cell Distribution Width 13.8 % (11.5-14.5) Mean Platelet Volume 10.0 fL (7.2-11.1) Neutrophils (%) (Auto) 45.0 % (39.4-72.5) Lymphocytes (%) (Auto) 40.5 % (17.6-49.6) Monocytes (%) (Auto) 9.4 % (4.1-12.4) Eosinophils (%) (Auto) 3.7 % (0.4-6.7) Basophils (%) (Auto) 1.4 % (0.3-1.4) Nucleated RBC Relative Count (auto) 0.1 /100WBC Neutrophils # (Auto) 2.2 K/uL (2.0-7.4) Lymphocytes # (Auto) 1.9 K/uL (1.3-3.6) Monocytes # (Auto) 0.4 K/uL (0.3-1.0) Eosinophils # (Auto) 0.2 K/uL (0.0-0.5) Basophils # (Auto) 0.1 K/uL (0.0-0.1) Nucleated RBC Absolute Count (auto) 0.00 K/uL Peripheral Blood Smear Yes Y/N Sodium Level 139 mmol/L (137-145) Potassium Level 5.0 mmol/L (3.5-5.0) Chloride Level 101 mmol/L (98-107) Carbon Dioxide Level 28 mmol/L (22-30) Blood Urea Nitrogen 6 mg/dl (9-21) Creatinine 0.70 mg/dl (0.66-1.25) Glomerular Filtration Rate Calc > 60.0 Random Glucose 118 mg/dl (75-110) Calcium Level 9.3 mg/dl (8.4-10.2) Magnesium Level 2.1 mg/dl (1.7-2.2) Total Bilirubin 0.6 mg/dl (0.2-1.3) Aspartate Amino Transf (AST/SGOT) 149 U/L (0-35) Alanine Aminotransferase (ALT/SGPT) 138 U/L (0-56) Alkaline Phosphatase 57 U/L (0-126) Total Protein 7.6 g/dl (6.3-8.2) Albumin 4.1 g/dl (3.5-5.0) Thyroid Stimulating Hormone (TSH) 1.93 uIU/ml (0.46-4.68) Salicylates Level < 10 mg/L Salicylate Last Dose Date unk Acetaminophen Level < 10 ug/ml Serum Alcohol 185 mg/dl Urine Color Yellow Urine Clarity Clear Urine pH 5.0 pH (4.8-9.5) Urine Specific Vesper 1.004 Urine Protein Negative mg/dL (NEGATIVE) Urine Glucose (UA) Negative mg/dL (NEGATIVE) Urine Ketones Negative mg/dL (NEGATIVE) Urine Blood Negative (NEGATIVE) Urine Nitrite Negative (NEGATIVE) Urine Bilirubin Negative (NEGATIVE) Urine Urobilinogen Negative mg/dL (0.2-1.9) Urine Leukocyte Esterase Negative (NEGATIVE) Urine RBC None /HPF (0-2/HPF) Urine WBC None /HPF (0-5/HPF) Urine Squamous Epithelial Cells None /LPF (</=FEW) Urine Bacteria Negative /HPF (NONE-FEW) Urine Mucus None /HPF (NONE-FEW) Urine Opiates Screen Negative Urine Barbiturates Screen Negative Ur Tricyclic Antidepressants Screen Negative Urine Phencyclidine Screen Negative Urine Amphetamines Screen Negative Urine Benzodiazepines Screen Negative Urine Cocaine Screen Negative Urine Cannabinoids Screen Negative Chemistry Test 03/19/18 03:30 03/19/18 03:54 White Blood Count 4.8 k/uL (4.5-11.0) Red Blood Count 4.75 M/uL (4.00-5.60) Hemoglobin 16.7 g/dL (14.0-18.0) Hematocrit 47.9 % (42.0-52.0) Mean Corpuscular Volume 101.0 fL (80.0-96.0) Mean Corpuscular Hemoglobin 35.3 pg (26.0-33.0) Mean Corpuscular Hemoglobin Concent 34.9 g/dL (32.0-36.0) Red Cell Distribution Width 13.8 % (11.5-14.5) Platelet Count 82 K/uL (150-450) Mean Platelet Volume 10.0 fL (7.2-11.1) Neutrophils (%) (Auto) 45.0 % (39.4-72.5) Lymphocytes (%) (Auto) 40.5 % (17.6-49.6) Monocytes (%) (Auto) 9.4 % (4.1-12.4) Eosinophils (%) (Auto) 3.7 % (0.4-6.7) Basophils (%) (Auto) 1.4 % (0.3-1.4) Nucleated RBC Relative Count (auto) 0.1 /100WBC Neutrophils # (Auto) 2.2 K/uL (2.0-7.4) Lymphocytes # (Auto) 1.9 K/uL (1.3-3.6) Monocytes # (Auto) 0.4 K/uL (0.3-1.0) Eosinophils # (Auto) 0.2 K/uL (0.0-0.5) Basophils # (Auto) 0.1 K/uL (0.0-0.1) Nucleated RBC Absolute Count (auto) 0.00 K/uL Peripheral Blood Smear Yes Y/N Glomerular Filtration Rate Calc > 60.0 Calcium Level 9.3 mg/dl (8.4-10.2) Magnesium Level 2.1 mg/dl (1.7-2.2) Total Bilirubin 0.6 mg/dl (0.2-1.3) Aspartate Amino Transf (AST/SGOT) 149 U/L (0-35) Alanine Aminotransferase (ALT/SGPT) 138 U/L (0-56) Alkaline Phosphatase 57 U/L (0-126) Total Protein 7.6 g/dl (6.3-8.2) Albumin 4.1 g/dl (3.5-5.0) Thyroid Stimulating Hormone (TSH) 1.93 uIU/ml (0.46-4.68) Salicylates Level < 10 mg/L Salicylate Last Dose Date unk Acetaminophen Level < 10 ug/ml Serum Alcohol 185 mg/dl Urine Color Yellow Urine Clarity Clear Urine pH 5.0 pH (4.8-9.5) Urine Specific Vesper 1.004 Urine Protein Negative mg/dL (NEGATIVE) Urine Glucose (UA) Negative mg/dL (NEGATIVE) Urine Ketones Negative mg/dL (NEGATIVE) Urine Blood Negative (NEGATIVE) Urine Nitrite Negative (NEGATIVE) Urine Bilirubin Negative (NEGATIVE) Urine Urobilinogen Negative mg/dL (0.2-1.9) Urine Leukocyte Esterase Negative (NEGATIVE) Urine RBC None /HPF (0-2/HPF) Urine WBC None /HPF (0-5/HPF) Urine Squamous Epithelial Cells None /LPF (</=FEW) Urine Bacteria Negative /HPF (NONE-FEW) Urine Mucus None /HPF (NONE-FEW) Urine Opiates Screen Negative Urine Barbiturates Screen Negative Ur Tricyclic Antidepressants Screen Negative Urine Phencyclidine Screen Negative Urine Amphetamines Screen Negative Urine Benzodiazepines Screen Negative Urine Cocaine Screen Negative Urine Cannabinoids Screen Negative Toxicology Test 03/19/18 03:30 03/19/18 03:54 Salicylates Level < 10 mg/L Salicylate Last Dose Date unk Acetaminophen Level < 10 ug/ml Serum Alcohol 185 mg/dl Urine Opiates Screen Negative Urine Barbiturates Screen Negative Ur Tricyclic Antidepressants Screen Negative Urine Phencyclidine Screen Negative Urine Amphetamines Screen Negative Urine Benzodiazepines Screen Negative Urine Cocaine Screen Negative Urine Cannabinoids Screen Negative Urinalysis Test 03/19/18 03:54 Urine Color Yellow Urine Clarity Clear Urine pH 5.0 pH (4.8-9.5) Urine Specific Vesper 1.004 Urine Protein Negative mg/dL (NEGATIVE) Urine Glucose (UA) Negative mg/dL (NEGATIVE) Urine Ketones Negative mg/dL (NEGATIVE) Urine Blood Negative (NEGATIVE) Urine Nitrite Negative (NEGATIVE) Urine Bilirubin Negative (NEGATIVE) Urine Urobilinogen Negative mg/dL (0.2-1.9) Urine Leukocyte Esterase Negative (NEGATIVE) Urine RBC None /HPF (0-2/HPF) Urine WBC None /HPF (0-5/HPF) Urine Squamous Epithelial Cells None /LPF (</=FEW) Urine Bacteria Negative /HPF (NONE-FEW) Urine Mucus None /HPF (NONE-FEW) ED Course/Re-evaluation ED Course Patient was admitted to an examination room. H&P was done. The differential diagnoses was considered. On clinical examination. Patient is awake and alert. He's been having hallucinations. He's was recently diagnosed with hepatitis C and liver cirrhosis. He's decided to stop drinking. He was drinking approximately 15 drinks per day. He's cut down over the last week since his diagnosis of hepatitis C and cirrhosis. Tonight he began to hallucinate. His significant other was concerned. She called the crisis line. They advised to come in for medical detox. Diagnostic evaluation shows a blood alcohol of 185. His MCV is 101. His MCH is 35. His H&H has been running high at 18 and 53. It is dropped to 16 and 48 since 2 weeks ago. 03/19/2018 4:27:58 am case discussed with Dr. Rodas psychiatrist on-call, who accepts the patient for medical detox to [facility] Decision to Disposition Date: Mar 19, 2018 Decision to Disposition Time: 04:27 Depart Departure Latest Vital Signs Vital Signs Date Time Temp Pulse Resp B/P (MAP) Pulse Ox O2 Delivery O2 Flow Rate FiO2 03/19/18 04:30 103/75 (84) 03/19/18 04:09 68 90 03/19/18 03:11 98.3 14 Room Air Impression: Primary Impression: Alcohol dependence Additional Impressions: Alcohol withdrawal COPD (chronic obstructive pulmonary disease) Hepatitis C Liver cirrhosis Condition: Stable Disposition: HOME OR SELF-CARE Referrals: FRANKY MCKEON (PCP) New Scripts No Active Prescriptions or Reported Meds Problem Qualifiers Primary Impression: Alcohol dependence Substance use status: uncomplicated Qualified Codes: F10.20 - Alcohol dependence, uncomplicated Additional Impressions: Alcohol withdrawal Complication of substance-induced condition: uncomplicated Qualified Codes: F10.230 - Alcohol dependence with withdrawal, uncomplicated COPD (chronic obstructive pulmonary disease) COPD type: unspecified COPD Qualified Codes: J44.9 - Chronic obstructive pulmonary disease, unspecified Hepatitis C Viral hepatitis chronicity: chronic Hepatic coma status: without hepatic coma Qualified Codes: B18.2 - Chronic viral hepatitis C Liver cirrhosis Hepatic cirrhosis type: unspecified hepatic cirrhosis Ascites presence: without ascites Qualified Codes: K74.60 - Unspecified cirrhosis of liver JAI BAKER DO Mar 19, 2018 03:14
[2018-03-19 04:17] LABS: PLATELET COUNT, AUTOMATED 82 K/uL (150-450)
[2018-03-19 04:30] VITALS: BP 103/75
== END 2018-03-19 04:50 ==
LOC: ER 03:19
DX: F10.230 Alcohol dependence with withdrawal, uncomplicated (principal); J44.9 Chronic obstructive pulmonary disease, unspecified; B18.2 Chronic viral hepatitis C; K74.60 Unspecified cirrhosis of liver
CPT/HCPCS: 36415; 80305; 80320; 80329; 81001; 82040; 82247; 82310; 82374; 82435; 82565; 82947; 83735; 84075; 84132; 84155; 84295; 84443; 84450; 84460; 84520; 85025; 99284

== ENCOUNTER 2018-03-19 04:28 | Inpatient (IN) | payer SELFPAY ==
[~2018-03-19] VITALS: Ht 167.6 cm; Wt 73.5 kg
[2018-03-19 04:55] VITALS: BP 113/77
[2018-03-19] MEDS: LORazepam 1 MG TAB PO PRN ×6 (05:04→21:49)
[2018-03-19] MEDS ORDERED: NICOTINE INH SYSTEM 10 MG/INH INH PRN (05:50)
[2018-03-19 07:55] VITALS: BP 116/78
[2018-03-19] MEDS: THIAMINE HCL 100 MG TAB PO SCH (08:25)
[2018-03-19] MEDS: FOLIC ACID 1 MG TAB PO SCH (08:25)
[2018-03-19] MEDS: MULTIVITAMINS TAB PO SCH (08:25)
[2018-03-19 11:30] VITALS: BP 112/64
[2018-03-19] MEDS ORDERED: LOPERAMIDE HCL 2 MG CAP PO ONE (12:05)
[2018-03-19 15:35] VITALS: BP 117/78
[2018-03-19] MEDS ORDERED: IBUPROFEN 200 MG TAB PO PRN (16:25)
[2018-03-19 19:45] VITALS: BP 132/80
--- NOTE | 2018-03-19 20:38 | SCHAAF H&P ---
DATE OF ADMISSION: March 19, 2018 ATTENDING PHYSICIAN Ulices Rodas MD Patient was seen at approximately 1000 hours on 19 March 2018 for note concerning this dictation. PRESENTING PROBLEM/CHIEF COMPLAINT Alcohol withdrawal treatment. HISTORY OF PRESENT ILLNESS This is a very pleasant, 53-year-old male who presented to the Emergency Room on a voluntary basis. Patient has recently been suffering the effects of hepatitis C compounded on likely hepatic cirrhosis from long-term alcohol consumption. Patient reports he has been cutting back and has been recently working with Dr. Browne. He has a HIDA scan Friday, the 20 of March scheduled. Patient reported trying to cut back on alcohol consumption prior to this, drinking beers at home. This resulted in the patient starting to get delirium tremens with alcohol hallucinosis. Patient admitted without incident, very calm, cooperative on the unit, being treated with lorazepam per [facility] protocol. Patient reports his overall health concerns are somewhat of a stressor to him, and work is a stressor where he works at [employer] sometimes, but other than that, patient reports no other psychiatric concerns. MENTAL HEALTH HISTORY Patient has never been an inpatient on a psychiatric unit. He has never attended long-term rehab or formal detox before. Patient has had AA meetings in [place]. He is not currently in any outpatient treatment. Denies a history of suicide attempt. FAMILY PSYCHIATRIC HISTORY Patient denies any other known history of alcohol use in the family to excess. Patient does report his brother was addicted to methamphetamine and is now . Patient reports his sister may suffer from "something," but he is unsure. There are no completed suicides in the family. PAST MEDICAL HISTORY Significant for likely alcohol-induced hepatic cirrhosis on top of hepatitis C condition the patient thinks he may have gotten from using contaminated needles. Patient denies any other health concerns currently. MEDICATIONS He is not on any medications. ALLERGIES Denies any allergies. SOCIAL HISTORY Patient was born in [place], raised in [place]. Parents were at the time of his . His father has now passed. His mother is still alive. Patient had one brother who is now . Patient moved to [place] approximately 25 years ago. He obtained a GED with no college and no service. Patient is times one for 15 years. They are now , and she is living in [place]. They have one daughter who lives in [place]. Patient works at [employer] for the last five months, and overall, he likes his job. Patient is currently sharing rent with another male and another female here in the [facility]. LEGAL HISTORY Patient reports a DUI times one in the past. No other legal history. Nothing pending. SUBSTANCE ABUSE HISTORY Patient used methamphetamine in the past, using IV as well. Patient smokes half a pack of cigarettes a day and drank heavily for 25 to 30 years, now trying to cut down. PHYSICAL EXAMINATION VITAL SIGNS: At the time of admission, temperature 98.3, pulse 76, respiratory rate 14, blood pressure 135/85, pulse oximetry 92% on room air. LABORATORY DATA CBC notable for MCV elevated at 101.0, MCH elevated at 35.3, platelet count low at 82. Chemistry panel notable for AST 149, ALT 138, mildly elevated, total bilirubin 0.6. TSH 1.93. Urinalysis unremarkable. Toxicology screen negative for substances of abuse with a serum alcohol level of 185 upon admission. MENTAL STATUS EXAMINATION GENERAL APPEARANCE, BEHAVIOR, AND ATTITUDE: This is somewhat somnolent- appearing, 53-year-old male. Appears slightly older than stated age, adequately groomed. Patient being actively treated for alcohol withdrawal and hallucinosis. SPEECH: Quiet and slowed. MOOD: Described as mildly frustrated. AFFECT: Constricted and mood congruent. THOUGHT PROCESSES: Appear goal directed, logical, patient wanting help for alcohol withdrawal. No loose associations or flight of ideas. THOUGHT CONTENT: Patient having visual hallucinations prior to admission, patient stating they are now resolved. Patient continues to be treated for alcohol withdrawal. No ideas of reference. No thought broadcastings. No delusions, obsessions, compulsions. No suicidal or homicidal ideation. SENSORIUM: Clear. COGNITION: Alert and oriented to person, place, time, situation. MEMORY: Immediate, recent, remote estimated intact. INTELLIGENCE: Average based on interview. INSIGHT AND JUDGMENT: Considered grossly intact, patient presenting voluntarily for help with alcohol withdrawal that could not be controlled at home. ASSESSMENT This is a polite, cooperative, 53-year-old male who coming to the Emergency Room voluntarily for help with alcohol withdrawal. At this point, will try to use Ativan per [facility] protocol and help ensure patient is able to make planned HIDA scan in the morning, Friday, March 20, 2018. Patient would then likely return to Behavioral Health for continued management of alcohol withdrawal until completed. Patient denying any other concerns. DIAGNOSES 1. Alcohol intoxication. 2. Alcohol withdrawal. 3. Alcohol use disorder, severe. 4. History of hepatitis C and hepatic cirrhosis. PLAN 1. Admit to the unit. 2. Necessary precautions will be implemented. 3. The patient will participate in individual and group therapy. 4. Medications will be used and titrated as necessary. Will use lorazepam for [facility] protocol for alcohol withdrawal and hallucinosis. 5. Collateral information will be obtained as necessary. 6. Will go ahead with scheduled HIDA scan as planned for a.m. of 20 March 2018. 7. Estimated length of stay three to five days. MTDD
[2018-03-19 22:34] VITALS: BP 118/72
[2018-03-20] MEDS: LORazepam 1 MG TAB PO PRN ×5 (03:22→23:11)
[2018-03-20 03:23] VITALS: BP 126/82
[2018-03-20 07:55] VITALS: BP 130/78
[2018-03-20] MEDS: MULTIVITAMINS TAB PO SCH (08:03)
[2018-03-20] MEDS: THIAMINE HCL 100 MG TAB PO SCH (08:03)
[2018-03-20] MEDS: FOLIC ACID 1 MG TAB PO SCH (08:03)
--- NOTE | 2018-03-20 10:59 | BHS Progress Note ---
S - Subjective Progress Notes Subjective Patient remains in alcohol withdrawal management on the unit, estimated to be considered complete, possible completion of withdrawal treatment will likely be as early as tomorrow evening. Patient to be cleared to go back to work on Friday of this next week, based on projected outcome of alcohol withdrawal treatment. No other concerns today patient reports good mood, appetite. Will Avoid medications that could potentially interfere with HIDA scan re-scheduled for next week. Suicidal Ideation: None Homicidal Ideation: None [facility] - Objective Physical Exam Vital Signs Vital Signs Date Time Temp Pulse Resp B/P (MAP) Pulse Ox O2 Delivery O2 Flow Rate FiO2 03/20/18 07:55 98.3 76 18 130/78 (95) 92 Nasal Cannula 1.0 Muscle Strength and Tone: WNL Gait and Station: Steady [facility] Medications Reviewed: Side Effects, Benefits of Medication, Risks Allergies Reviewed: Yes Mental Status Exam General Appearance: Casual, Well Groomed, Good Eye Contact, Cooperative, Polite, Good Interaction; No Unkept, No Tearful, No Psychomotor Agitation, No Psychomotor Retardation, No Bizarre Mannerisms, No Tics Speech: Clear, Spontaneous, Normal Rate, Normal Rhythm; No Normal Volume (low); Normal Tone; No Delayed, No Slurred, No Garbled, No Rambling, No Inappropriate Mood: Euthymic (patient reports okay mood overall. ) Affect: Full and Appropriate, Calm; No Withdrawn, No Tearful, No Anxious, No Agitated Thought Process: Organized, Logical, Goal Directed; No Loose Associations, No Flight of Ideas Thought Content: No Suicidal Ideation, No Homicidal Ideation, No Delusions, No Auditory Halllucinations, No Visual Hallucinations, No Thought Broadcasting, No Ideas of Reference, No Obsessions, No Compulsions Sensorium: Clear Cognition: Alert & Oriented-Person, Alert & Oriented-Place, Alert & Oriented- Time, [id number] Memory: Immediate, Recent, Remote Intelligence: Average Insight Judgment: Fair (improving in the absence of alcohol) [facility] Assessment and Plan [id number] Encounter Date: Mar 20, 2018 Pycn-[id number] Encounter Time: 10:00 [facility] Plan: Necessary Precautions, Individual/Group Therapy, Admin/Titrate Meds, Educate Patient Tobacco Medications: Started Multpiple Antipsychotics Used: No Problems: (1) Alcohol use disorder, severe, in controlled environment Status: Chronic (2) Alcohol withdrawal Status: Acute Condition 1. continue treatment. 2. labs tomorrow. 3. likely discharge to home this weekend. Problem Qualifiers (1) Alcohol withdrawal: Complication of substance-induced condition: with perceptual disturbance Qualified Codes: F10.232 - Alcohol dependence with withdrawal with perceptual disturbance AGNIESZKA MARTINEZ MD Mar 20, 2018 10:58
[2018-03-20] MEDS ORDERED: INFLUENZA VIRUS VAC 0.5ML SYR IM ONLY ONE (11:25)
[2018-03-20 12:00] VITALS: BP 132/91
[2018-03-20 16:27] VITALS: BP 122/87
[2018-03-20] MEDS: LOPERAMIDE HCL 2 MG CAP PO PRN (16:45)
[2018-03-21 02:03] VITALS: BP 118/74
[2018-03-21] MEDS: LORazepam 1 MG TAB PO PRN (02:06)
[2018-03-21 06:56] LABS: PLATELET COUNT, AUTOMATED 76 K/uL (150-450)
[2018-03-21] MEDS: FOLIC ACID 1 MG TAB PO SCH (08:21)
[2018-03-21] MEDS: MULTIVITAMINS TAB PO SCH (08:21)
[2018-03-21] MEDS: THIAMINE HCL 100 MG TAB PO SCH (08:22)
[2018-03-21 08:23] VITALS: BP 136/86
[2018-03-21 12:32] VITALS: BP 122/72
[2018-03-21] MEDS: LOPERAMIDE HCL 2 MG CAP PO PRN (12:48)
--- NOTE | 2018-03-21 15:24 | BHS Progress Note ---
BHS - Subjective Progress Notes Subjective Pt seen in conference room. He is still scoring on the [facility] protocol-- he had ativan yesterday at 5 and 10 pm, then at 2 am today, this am his score is 2. He is denying any pain, nausea, vomiting, urges to drink. His labs today look OK, WBC WNL, MCV and liver enzymes still elevated with MCV at 101.5, AST at 80, and ALT at 97. He met with 2 men from AA yesterday and says this was a positive experience-- he has attended AA meetings in the past. He says his plan to stay sober is to "go home, go back to work, and not drink." We spent some time discussing the importance and benefit of regular AA meetings which he seems open to. He says he will connect with AA members and try to schedule a ride to [facility]. Will continue treatment today with further psychoeducation and continue [facility] protocol. Tentative discharge tomorrow if his detox is complete. Suicidal Ideation: None Homicidal Ideation: None S - Objective Physical Exam Vital Signs Vital Signs 03/21/18 03/21/18 02:03 12:32 Temp 99.0 Pulse 75 Resp 16 B/P (MAP) 122/72 (89) Pulse Ox 92 O2 Delivery Room Air O2 Flow Rate 1.0 Muscle Strength and Tone: WNL Gait and Station: Steady [facility] Medications Reviewed: Side Effects, Benefits of Medication, Risks Allergies Reviewed: Yes Mental Status Exam General Appearance: Casual, Well Groomed, Good Eye Contact, Cooperative, Polite, Good Interaction; No Unkept, No Tearful, No Psychomotor Agitation, No Psychomotor Retardation, No Bizarre Mannerisms, No Tics Speech: Clear, Spontaneous, Normal Rate, Normal Rhythm; No Normal Volume (quiet); Normal Tone; No Delayed, No Slurred, No Garbled, No Rambling, No Inappropriate, No Other Mood: Euthymic (patient reports okay mood overall. ) Affect: Full and Appropriate, Calm; No Withdrawn, No Tearful, No Anxious, No Agitated Thought Process: Organized, Logical, Goal Directed; No Loose Associations, No Flight of Ideas Thought Content: No Suicidal Ideation, No Homicidal Ideation, No Delusions, No Auditory Halllucinations, No Visual Hallucinations, No Thought Broadcasting, No Ideas of Reference, No Obsessions, No Compulsions Sensorium: Clear Cognition: Alert & Oriented-Person, Alert & Oriented-Place, Alert & Oriented- Time, [id number]-[id number] Memory: Immediate, Recent, Remote Intelligence: Average Insight Judgment: Fair (improving in the absence of alcohol) Result Diagram: 03/21/18 0640 03/21/18 0640 [facility] Assessment and Plan Piqd-[id number] Encounter Date: Mar 21, 2018 [id number]-[id number] Encounter Time: 10:00 [facility] Plan: Necessary Precautions, Individual/Group Therapy, Admin/Titrate Meds, Educate Patient Tobacco Medications: Started Multpiple Antipsychotics Used: No Problems: (1) Alcohol use disorder, severe, in controlled environment Status: Chronic (2) Alcohol withdrawal Status: Acute Problem Qualifiers (1) Alcohol withdrawal: Complication of substance-induced condition: with perceptual disturbance Qu alified Codes: F10.232 - Alcohol dependence with withdrawal with perceptual disturbance MAURISIO POND MD Mar 21, 2018 15:24
[2018-03-21 18:30] VITALS: BP 118/72
[2018-03-22] MEDS: FOLIC ACID 1 MG TAB PO SCH (08:16)
[2018-03-22] MEDS: MULTIVITAMINS TAB PO SCH (08:16)
[2018-03-22] MEDS: THIAMINE HCL 100 MG TAB PO SCH (08:16)
[2018-03-22] MEDS ORDERED: MULT-859 PO (10:57)
[2018-03-22] MEDS ORDERED: NIC10R INH (11:07)
--- NOTE | 2018-03-22 15:36 | BHS Discharge Summary ---
[facility] Discharge Summary Agys-no-Xvvn Encounter Date: Mar 22, 2018 Qscu-bh-Ouyd Encounter Time: 08:30 Reason-Hosp/Final Diag (DSM-V): (1) Alcohol use disorder, severe, in controlled environment Status: Chronic Hospital Course & Plan: Pt was admitted to [facility] and detowed with [facility]I protocol using Ativan. Detox was uncomplicated. Pt was cooperative and participated in all therapeutic activites, groups and therapy. We had hoped to have his HIDA scan completed as inpatient but could not, due to the ativan needed for detox could apparently interfere with scan results. Scan is rescheduled for next week. Pt met with AA members while here and verbalized his intention to partici ocampo in meetings after discharge. (2) Alcohol withdrawal Status: Acute Physical Exam Latest Vital Signs Vital Signs 03/21/18 03/21/18 02:03 18:30 Temp 99.0 Pulse 73 Resp 16 B/P (MAP) 118/72 (87) Pulse Ox 94 O2 Delivery Room Air O2 Flow Rate 1.0 Mental Status Exam General Appearance: Casual, Well Groomed, Good Eye Contact, Cooperative, Fidel ite, Good Interaction Speech: Clear, Spontaneous, Normal Rate, Normal Rhythm, Normal Tone Mood: Euthymic Affect: Full and Appropriate, Calm; No Withdrawn, No Tearful, No Anxious, No Agitated Thought Process: Organized, Logical, Goal Directed; No Loose Associations, No Flight of Ideas Thought Content: No Suicidal Ideation, No Homicidal Ideation, No Delusions, No Auditory Halllucinations, No Visual Hallucinations, No Thought Broadcasting, No Ideas of Reference, No Obsessions, No Compulsions Sensorium: Clear Cognition: Alert & Oriented-Person, Alert & Oriented-Place, Alert & Oriented- Time, Kjxkl-Kednlxhz-Lukfzlnma Memory: Immediate, Recent, Remote Intelligence: Average Insight Judgment: Fair Departure Result Diagram: 03/21/1863903/21/18639 Condition: Improved Discharge to: Home Discharge Instructions Home Meds Reported Medications Nicotine (NICOTROL) 10 Mg/Inh Ctr, 10 MG INH PRN PRN for NICOTINE REPLACEMENT 03/22/18 Multivits,Ca,Minerals/Iron/Fa (THERA-M TABLET) 1 Each Tablet, 1 EACH PO DAILY 03/22/18 Discontinued Reported Medications Metronidazole (METRONIDAZOLE) 500 Mg Tablet, 500 MG PO TID, TAB 03/08/18 Dicyclomine Hcl (DICYCLOMINE HCL) 10 Mg Capsule, 10 MG PO QID, CAPSULE 03/08/18 Ciprofloxacin Hcl (CIPROFLOXACIN HCL) 500 Mg Tablet, 500 MG PO Q12H, #14 TAB 03/08/18 Discontinued Scripts Omeprazole (OMEPRAZOLE) 20 Mg Capsule.dr, 1 CAP PO QDAY for 30 Days, #30 CAP 0 Refills Prov:JONNY ELISE MAINTENANCE [employer] CLERK-BC 02/24/18 Ondansetron Hcl (ZOFRAN) 4 Mg Tablet, 4 MG PO Q12H, #8 TAB 0 Refills Prov:JONNY ELISE MAINTENAN[employer] CLERK-BC 02/23/18 Multpiple Antipsychotics Used: No Special Instructions: ABSTAIN FROM ALCOHOL. Take medications as prescribed. Follow up with outpatient provider for medication management. Follow up with outpatient therapy. Follow up with AA. Obtain an AA Sponsor & Utilize Them. Report to [facility] Admitting at 815 am on FridayMarch 30 for your HIDA Scan. Drink 8 oz of water & 8 oz of Whole milk at 730 am prior to reporting for this test. Call Crisis Line should symptoms return. Problem Qualifiers (1) Alcohol withdrawal: Complication of substance-induced condition: with perceptual disturbance Qualified Codes: F10.232 - Alcohol dependence with withdrawal with perceptual disturbance MAURISIO POND MD Mar 22, 2018 15:36
== END 2018-03-22 11:30 | disposition home or self-care (01) | DRG 897 ==
LOC: BHS 04:28
PROVIDERS: ADMIT Psychiatry & Neurology Psychiatry; ATTEND Psychiatry & Neurology Psychiatry
DX: F10.232 Alcohol dependence with withdrawal with perceptual disturbance (principal); K70.30 Alcoholic cirrhosis of liver without ascites; B18.2 Chronic viral hepatitis C; F17.210 Nicotine dependence, cigarettes, uncomplicated; F15.11 Other stimulant abuse, in remission; Y90.6 Blood alcohol level of 120-199 mg/100 ml; Z81.3 Family history of other psychoactive substance abuse and dependence; Z23 Encounter for immunization
CPT/HCPCS: 36415; 82040; 82247; 82310; 82374; 82435; 82565; 82947; 83735; 84075; 84132; 84155; 84295; 84450; 84460; 84520; 85025; 90674

== ENCOUNTER → 2018-03-19 | Outpatient (CLI) | payer SELFPAY ==
[~2018-03-19] MED LIST changes: +CIPR-214 PO; +DICY10CA11 PO; +METR-160 PO; +MULT-859 PO; +NIC10R INH
== END ==
LOC: AMB 02:46
PROVIDERS: ATTEND Nurse Practitioner
DX: F10.20 Alcohol dependence, uncomplicated (principal)
CPT/HCPCS: A0425; A0429

== ENCOUNTER 2018-03-22 22:46 | Emergency (ER) | payer SELFPAY ==
[~2018-03-22 22:46] MED LIST changes: +MULT-859 PO; +NIC10R INH
[2018-03-22] MEDS ORDERED: OLANZapine ZYDIS ODT 5MG TABDP PO ONE (23:10)
[2018-03-22] MEDS ORDERED: diphenhydrAMINE 25 MG CAP PO ONE (23:10)
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
[2018-03-22 23:30] VITALS: BP 119/86
== END 2018-03-22 23:37 | disposition home or self-care (01) ==
LOC: ER 23:05
DX: F10.20 Alcohol dependence, uncomplicated (principal)
CPT/HCPCS: 99283; Q0163

== ENCOUNTER → 2018-03-30 | Outpatient (REF) ==
[~2018-03-30] MED LIST changes: +SINCALIDE 5 MCG VIAL INJ ONE; +WATER FOR INJ,STERILE 20 ML 20 ML ONE
--- NOTE | 2018-03-30 15:25 | RADIOLOGY IMAGING REPORT ---
FACILITY: [facility] PATIENT NAME: Rito Falk : 1965 MR: [id number] V: [id number] EXAM DATE: ORDERING PHYSICIAN: FRANKY MCKEON TECHNOLOGIST: Location: [facility] Patient: Rito Falk : 1965 Visit/Account:[id number] Date of Sevice: 03/30/2018 HIDA HISTORY: Nausea vomiting and diarrhea TECHNIQUE: 6.0 mCi Tc99m Hepatolite was injected intravenously. Multiple sequential gamma camera gloria ges of the abdomen were obtained for 180 minutes. At three hours the gallbladder was not seen. CCK was not administered COMPARISON: Gallbladder ultrasound February 23, [address] abdomen pelvis March 08, 2018 FINDINGS: Liver uptake and excretion: Unremarkable. Time to appearance: Bile ducts: 5 minutes. Gallbladder: minutes. Duodenum: 8 minutes. Duodenal-gastric reflux / extravasation: None. IMPRESSION: Isotope was identified in the liver, bile ducts and duodenum however the gallbladder was not identifi ed despite three hours of imaging.. Prior recent imaging studies revealed no evidence of cholelithia sis. Findings are likely related to acalculus cholecystitis. Results were called to Dr. Browne at 03/30/2018 3:19 PM. Report Dictated By: Ana Lilia Leonard MD at 03/30/2018 2:52 PM Report E-Signed By: Ana Lilia Leonard MD at 03/30/2018 3:20 PM WSN:[id number]
== END ==
LOC: NUC 03-20 04:25
PROVIDERS: ATTEND Nurse Practitioner
DX: R10.9 Unspecified abdominal pain (principal); R11.2 Nausea with vomiting, unspecified; K83.8 Other specified diseases of biliary tract
CPT/HCPCS: 78226; A9537; J2805

== ENCOUNTER 2018-04-16 12:15 | Emergency (ER) | payer SELFPAY ==
[~2018-04-16 12:15] MED LIST changes: -METR-160 PO; +METR500T54 PO; -SINCALIDE 5 MCG VIAL INJ ONE; -WATER FOR INJ,STERILE 20 ML 20 ML ONE
--- NOTE | 2018-04-16 12:26 | ER Report ---
History and Physical Time Seen By MD: 12:25 HPI/ROS CHIEF COMPLAINT: Right testicular discomfort HISTORY OF PRESENT ILLNESS: Patient is a 53-year-old male here with complaints of right testicular discomfort and concern for an inguinal hernia. Patient reports that he has had discomfort for the past 2 days. Patient is afebrile, hemodynamically stable. He denies penile discharge, unprotected sex, hematuria, melena, bright red blood per rectum, nausea, abdominal Pain. REVIEW OF SYSTEMS: Constitutional: No fever, no chills. Eyes: No discharge. ENT: No sore throat. Cardiovascular: No chest pain, no palpitations. Respiratory: No cough, no shortness of breath. Gastrointestinal: No abdominal pain, no vomiting. Genitourinary: No hematuria, no penile discharge Musculoskeletal: No back pain. Skin: No rashes. Neurological: No headache. Allergies: Coded Allergies: No Known Drug Allergies (Unverified , 02/08/18) Home Meds Reported Medications Multivits,Ca,Minerals/Iron/Fa (THERA-M TABLET) 1 Each Tablet, 1 EACH PO DAILY 03/22/18 Discontinued Reported Medications Nicotine (NICOTROL) 10 Mg/Inh Ctr, 10 MG INH PRN PRN for NICOTINE REPLACEMENT 03/22/18 Hx Smoking: Yes Smoking Status: Current: Every Day Smoker Exposure to Second Hand Smoke?: Yes Hx Substance Use Disorder: No Hx Alcohol Use: Yes Constitutional Vital Sign - Last 24 Hours 04/16/18 12:28 Pulse 77 Resp 16 B/P (MAP) 99/52 Pulse Ox 94 O2 Delivery Room Air Physical Exam General Appearance: The patient is alert, has no immediate need for airway protection and no signs of toxicity. NAD Eyes: Pupils equal and round no pallor or injection. ENT, Mouth: Mucous membranes are moist. Respiratory: There are no retractions, lungs are clear to auscultation. Cardiovascular: Regular rate and rhythm. Gastrointestinal: Abdomen is soft and non tender, no masses, bowel sounds normal. Neurological: No focal deficits : tender right testicle without scrotal fullness or discoloration Skin: Warm and dry, no rashes. Musculoskeletal: Neck is supple non tender. Extremities are nontender, nonswollen and have full range of motion. DIFFERENTIAL DIAGNOSIS: After history and physical exam differential diagnosis was considered for inguinal hernia, epididymitis, tumor, testicular torsion, cellulitis, orchitis Medical Decision Making Data Points Result Diagram: 11/8/18 1245 04/16/18 1245 Laboratory Hematology Test 04/16/18 12:45 Red Blood Count 4.84 M/uL (4.00-5.60) Mean Corpuscular Volume 100.3 fL (80.0-96.0) Mean Corpuscular Hemoglobin 34.8 pg (26.0-33.0) Mean Corpuscular Hemoglobin Concent 34.7 g/dL (32.0-36.0) Red Cell Distribution Width 12.9 % (11.5-14.5) Mean Platelet Volume 11.1 fL (7.2-11.1) Neutrophils (%) (Auto) 46.4 % (39.4-72.5) Lymphocytes (%) (Auto) 40.1 % (17.6-49.6) Monocytes (%) (Auto) 10.9 % (4.1-12.4) Eosinophils (%) (Auto) 1.3 % (0.4-6.7) Basophils (%) (Auto) 1.3 % (0.3-1.4) Nucleated RBC Relative Count (auto) 0.0 /100WBC Neutrophils # (Auto) 2.1 K/uL (2.0-7.4) Lymphocytes # (Auto) 1.8 K/uL (1.3-3.6) Monocytes # (Auto) 0.5 K/uL (0.3-1.0) Eosinophils # (Auto) 0.1 K/uL (0.0-0.5) Basophils # (Auto) 0.1 K/uL (0.0-0.1) Nucleated RBC Absolute Count (auto) 0.00 K/uL Peripheral Blood Smear Yes Y/N Urine Color Nicole Urine Clarity Slightly-cloudy Urine pH 5.0 pH (4.8-9.5) Urine Specific [place] 1.024 Urine Protein Negative mg/dL (NEGATIVE) Urine Glucose (UA) Negative mg/dL (NEGATIVE) Urine Ketones Negative mg/dL (NEGATIVE) Urine Blood Negative (NEGATIVE) Urine Nitrite Negative (NEGATIVE) Urine Bilirubin Negative (NEGATIVE) Urine Urobilinogen 2.0 mg/dL (0.2-1.9) Urine Leukocyte Esterase Negative (NEGATIVE) Urine RBC 1 /HPF (0-2/HPF) Urine WBC 3 /HPF (0-5/HPF) Urine Squamous Epithelial Cells None /LPF (</=FEW) Urine Transitional Epithelial Cells Few /LPF (NONE-FEW) Urine Bacteria Moderate /HPF (NONE-FEW) Urine Hyaline Casts Few /LPF (NONE-FEW) Urine Mucus Few /HPF (NONE-FEW) Sodium Level 139 mmol/L (137-145) Potassium Level 3.5 mmol/L (3.5-5.0) Chloride Level 110 mmol/L (98-107) Carbon Dioxide Level 21 mmol/L (22-30) Blood Urea Nitrogen 10 mg/dl (9-21) Creatinine 0.70 mg/dl (0.66-1.25) Glomerular Filtration Rate Calc > 60.0 Random Glucose 97 mg/dl (75-110) Calcium Level 9.2 mg/dl (8.4-10.2) Total Bilirubin 0.6 mg/dl (0.2-1.3) Aspartate Amino Transf (AST/SGOT) 84 U/L (0-35) Alanine Aminotransferase (ALT/SGPT) 117 U/L (0-56) Alkaline Phosphatase 55 U/L (0-126) Total Protein 7.2 g/dl (6.3-8.2) Albumin 3.8 g/dl (3.5-5.0) Chemistry Test 04/16/18 12:45 White Blood Count 4.5 k/uL (4.5-11.0) Red Blood Count 4.84 M/uL (4.00-5.60) Hemoglobin 16.9 g/dL (14.0-18.0) Hematocrit 48.6 % (42.0-52.0) Mean Corpuscular Volume 100.3 fL (80.0-96.0) Mean Corpuscular Hemoglobin 34.8 pg (26.0-33.0) Mean Corpuscular Hemoglobin Concent 34.7 g/dL (32.0-36.0) Red Cell Distribution Width 12.9 % (11.5-14.5) Platelet Count 110 K/uL (150-450) Mean Platelet Volume 11.1 fL (7.2-11.1) Neutrophils (%) (Auto) 46.4 % (39.4-72.5) Lymphocytes (%) (Auto) 40.1 % (17.6-49.6) Monocytes (%) (Auto) 10.9 % (4.1-12.4) Eosinophils (%) (Auto) 1.3 % (0.4-6.7) Basophils (%) (Auto) 1.3 % (0.3-1.4) Nucleated RBC Relative Count (auto) 0.0 /100WBC Neutrophils # (Auto) 2.1 K/uL (2.0-7.4) Lymphocytes # (Auto) 1.8 K/uL (1.3-3.6) Monocytes # (Auto) 0.5 K/uL (0.3-1.0) Eosinophils # (Auto) 0.1 K/uL (0.0-0.5) Basophils # (Auto) 0.1 K/uL (0.0-0.1) Nucleated RBC Absolute Count (auto) 0.00 K/uL Peripheral Blood Smear Yes Y/N Urine Color Nicole Urine Clarity Slightly-cloudy Urine pH 5.0 pH (4.8-9.5) Urine Specific [place] 1.024 Urine Protein Negative mg/dL (NEGATIVE) Urine Glucose (UA) Negative mg/dL (NEGATIVE) Urine Ketones Negative mg/dL (NEGATIVE) Urine Blood Negative (NEGATIVE) Urine Nitrite Negative (NEGATIVE) Urine Bilirubin Negative (NEGATIVE) Urine Urobilinogen 2.0 mg/dL (0.2-1.9) Urine Leukocyte Esterase Negative (NEGATIVE) Urine RBC 1 /HPF (0-2/HPF) Urine WBC 3 /HPF (0-5/HPF) Urine Squamous Epithelial Cells None /LPF (</=FEW) Urine Transitional Epithelial Cells Few /LPF (NONE-FEW) Urine Bacteria Moderate /HPF (NONE-FEW) Urine Hyaline Casts Few /LPF (NONE-FEW) Urine Mucus Few /HPF (NONE-FEW) Glomerular Filtration Rate Calc > 60.0 Calcium Level 9.2 mg/dl (8.4-10.2) Total Bilirubin 0.6 mg/dl (0.2-1.3) Aspartate Amino Transf (AST/SGOT) 84 U/L (0-35) Alanine Aminotransferase (ALT/SGPT) 117 U/L (0-56) Alkaline Phosphatase 55 U/L (0-126) Total Protein 7.2 g/dl (6.3-8.2) Albumin 3.8 g/dl (3.5-5.0) Urinalysis Test 04/16/18 12:45 Urine Color Nicole Urine Clarity Slightly-cloudy Urine pH 5.0 pH (4.8-9.5) Urine Specific [place] 1.024 Urine Protein Negative mg/dL (NEGATIVE) Urine Glucose (UA) Negative mg/dL (NEGATIVE) Urine Ketones Negative mg/dL (NEGATIVE) Urine Blood Negative (NEGATIVE) Urine Nitrite Negative (NEGATIVE) Urine Bilirubin Negative (NEGATIVE) Urine Urobilinogen 2.0 mg/dL (0.2-1.9) Urine Leukocyte Esterase Negative (NEGATIVE) Urine RBC 1 /HPF (0-2/HPF) Urine WBC 3 /HPF (0-5/HPF) Urine Squamous Epithelial Cells None /LPF (</=FEW) Urine Transitional Epithelial Cells Few /LPF (NONE-FEW) Urine Bacteria Moderate /HPF (NONE-FEW) Urine Hyaline Casts Few /LPF (NONE-FEW) Urine Mucus Few /HPF (NONE-FEW) EKG/Imaging Imaging Please see official radiology report ED Course/Re-evaluation ED Course Patient is a 53-year-old male here with complaints of right testicular pain, scrotal fullness. Patient was concerned that he had an inguinal hernia in the right side because he had a history of the left inguinal hernia repair as a c hild. Patient reports that symptoms have been on for 2 days now with denies fevers, penile discharge, hematuria, melena, bright red blood per rectum, rash. There is no appreciable swelling at time of evaluation. CBC, CMP, urinalysis were unremarkable. Ultrasound of the testes showed no acute abnormalities or presence of bowel contents in the scrotum. Patient was advised to follow-up with his PCP in the next couple days Decision to Disposition Date: Apr 16, 2018 Decision to Disposition Time: 14:33 Depart Departure Latest Vital Signs Vital Signs Date Time Temp Pulse Resp B/P (MAP) Pulse Ox O2 Delivery O2 Flow Rate FiO2 04/16/18 12:28 77 16 99/52 94 Room Air Impression: Primary Impression: Testicular pain Condition: Improved Disposition: HOME OR SELF-CARE New Scripts Tramadol Hcl (TRAMADOL HCL) 50 Mg Tablet 50 MG PO Q6H PRN for PAIN, #12 TAB 0 Refills Prov: LESA NEGRON DO 04/16/18 Patient Instructions: Testicle Pain (ED) Additional Instructions: There is no hernia noted on near ultrasound imaging. You may take ibuprofen or naproxen as needed for pain control. You may take 1 tablet of tramadol every 6-8 hours as needed for breakthrough pain control. Please follow up closely with your family doctor in the next couple days for follow-up evaluation and care. Please return if you develop fevers, blood in the urine or stools, burning with urination, penile discharge LESA NEGRON DO Apr 16, 2018 12:26
[2018-04-16] MEDS ORDERED: NS(*) 0.9% 1000 ML BAG 1,000 ML IV ONE (12:31)
[2018-04-16] MEDS ORDERED: KETOROLAC 30 MG/ML VIAL IVP ONE (12:35)
[2018-04-16 13:42] LABS: PLATELET COUNT, AUTOMATED 110 K/uL (150-450)
[2018-04-16 14:20] VITALS: BP 141/87
[2018-04-16] MEDS ORDERED: TRAM-420 PO (14:33)
--- NOTE | 2018-04-16 14:33 | RADIOLOGY IMAGING REPORT ---
FACILITY: [facility] PATIENT NAME: Rito aFlk : 1965 MR: [id number] V: [id number] EXAM DATE: ORDERING PHYSICIAN: LESA NEGRON TECHNOLOGIST: Location: [facility] Patient: Rito Falk : 1965 Visit/Account:[id number] Date of Sevice: 04/16/2018 SCROTAL ULTRASOUND INDICATION: Right testicular pain. COMPARISON: None available. FINDINGS: Right testicle measures 4.7 x 1.9 x 3.4 cm in cc, AP, and transverse dimensions respectively. There is normal arterial and venous blood flow. No evidence of hydrocele.. No varicocele identified. The right epididymal head measures 0.9 cm. Normal blood flow. 2 mm epididymal head cyst. Left testicle measures 4.9 x 1.7 x 3.4 cm in cc, AP, and transverse dimensions respectively. There is normal arterial and venous blood flow. No evidence of hydrocele. No varicocele identified. The left epididymal head measures 1.3 cm. Normal blood flow. No focal abnormality. The bilateral testicles appear homogenous in echogenicity. Left testes does show a tiny subcentimeter calcification without other focal abnormality. No indication of hernia seen on this exam. IMPRESSION: 1. Normal blood flow within the bilateral testicles with no focal abnormality. 2. 2 mm right epididymal head cyst. 3. No indication of hernia seen on this exam. Report Dictated By: Cheikh Yepze at 04/16/2018 2:26 PM Report E-Signed By: Cheikh Yepez at 04/16/2018 2:29 PM WSN:[id number]
== END 2018-04-16 14:30 | disposition home or self-care (01) ==
LOC: ER 12:50
DX: N50.811 Right testicular pain (principal); N50.3 Cyst of epididymis
CPT/HCPCS: 76870; 81001; 85025; 96361; 96374; 99284; J1885; J7030; 82040; 82247; 82310; 82374; 82435; 82565; 82947; 84075; 84132; 84155; 84295; 84450; 84460; 84520

== ENCOUNTER 2018-05-25 10:45 | Emergency (ER) | payer SELFPAY ==
[~2018-05-25 10:45] MED LIST changes: +TRAM-420 PO
--- NOTE | 2018-05-25 10:55 | ER Report ---
History and Physical Time Seen By MD: 10:55 Hx. of Stated Complaint: C/O RIGHT SIDED INGUINAL DISCOMFORT, STATES HE HAS A HERNIA THERE THAT IS BULGING. HPI/ROS CHIEF COMPLAINT: Abdominal pain HISTORY OF PRESENT ILLNESS: This is a 53-year-old male presents to the emergency department for abdominal pain. Patient states he has a known hernia however the last 3 weeks he's had increased right lower quadrant pain with what feels like a hernia that is "stuck". He's had nausea no vomiting. Soft stools but no diarrhea. He's had no documented fevers however he's had chills at home, no chest pain or shortness of breath. No testicular pain. REVIEW OF SYSTEMS: Constitutional: No fever, no chills. Eyes: No discharge. ENT: No sore throat. Cardiovascular: No chest pain, no palpitations. Respiratory: No cough, no shortness of breath. Gastrointestinal: As well. Genitourinary: No hematuria. Musculoskeletal: No back pain. Skin: No rashes. Neurological: No headache. Allergies: Coded Allergies: No Known Drug Allergies (Unverified , 02/08/18) Home Meds Active Scripts Tramadol Hcl (TRAMADOL HCL) 50 Mg Tablet, 50 MG PO Q6H PRN for PAIN, #12 TAB 0 Refills Prov:NEGRONLESA DO 04/16/18 Reported Medications Multivits,Ca,Minerals/Iron/Fa (THERA-M TABLET) 1 Each Tablet, 1 EACH PO DAILY 03/22/18 Past Medical/Surgical History The patient has a past medical and surgical history of pneumonia, COPD, carotid disease, liver disease, wears glasses, hep C positive, history of alcohol abuse. Reviewed Nurses Notes: Yes Hx Smoking: Yes Smoking Status: Current: Every Day Smoker Exposure to Second Hand Smoke?: Yes Hx Substance Use Disorder: No Hx Alcohol Use: Yes Constitutional Vital Sign - Last 24 Hours 05/25/18 05/25/18 05/25/18 05/25/18 10:45 10:52 10:53 11:00 Temp 97.3 Pulse ??? 70 69 Resp 14 B/P (MAP) 145/85 (105) Pulse Ox 96 97 O2 Delivery Room Air 05/25/18 05/25/18 05/25/18 05/25/18 11:15 11:30 11:45 12:00 Pulse ??? 64 62 62 Pulse Ox 93 93 93 05/25/18 05/25/18 05/25/18 05/25/18 12:15 12:26 12:30 12:35 Pulse 60 60 62 B/P (MAP) 148/82 (104) 140/85 (103) Pulse Ox 93 94 94 05/25/18 05/25/18 05/25/18 05/25/18 12:50 13:00 13:05 13:20 Pulse 60 58 54 B/P (MAP) 130/81 (97) Pulse Ox 93 93 93 05/25/18 05/25/18 13:30 13:35 Pulse 59 B/P (MAP) 138/93 (108) Pulse Ox 92 Physical Exam General Appearance: The patient is alert, has no immediate need for airway protection and no signs of toxicity. Eyes: Pupils equal and round no pallor or injection. ENT, Mouth: Mucous membranes are moist. Respiratory: There are no retractions, lungs are clear to auscultation. Cardiovascular: Regular rate and rhythm. Gastrointestinal: Abdomen is soft , tenderness to the right lower quadrant extending into the right upper quadrant, negative Newman sign. no masses, bowel sounds normal. Genitourinary: Positive cremasterics reflex bilaterally, no active hernia in the inguinal canals, mild change in the right lower quadrant in the inguinal canal when bearing down but no palpable hernia. Neurological: Alert and oriented 4. Moving all extremities. Following all commands. No focal neuro deficits. Skin: Warm and dry, no rashes. Musculoskeletal: Neck is supple non tender. Extremities are nontender, nonswollen and have full range of motion. DIFFERENTIAL DIAGNOSIS: After history and physical exam differential diagnosis was considered for abdominal pain including but not limited to appendicitis, cholecystitis, gastritis and urinary tract infection. Medical Decision Making Data Points Result Diagram: 05/25/18 1147 05/25/18 1147 Laboratory Hematology Test 05/25/18 11:47 05/25/18 11:56 Red Blood Count 4.71 M/uL (4.00-5.60) Mean Corpuscular Volume 102.0 fL (80.0-96.0) Mean Corpuscular Hemoglobin 34.9 pg (26.0-33.0) Mean Corpuscular Hemoglobin Concent 34.2 g/dL (32.0-36.0) Red Cell Distribution Width 13.4 % (11.5-14.5) Mean Platelet Volume 10.3 fL (7.2-11.1) Neutrophils (%) (Auto) 50.9 % (39.4-72.5) Lymphocytes (%) (Auto) 34.3 % (17.6-49.6) Monocytes (%) (Auto) 11.9 % (4.1-12.4) Eosinophils (%) (Auto) 1.6 % (0.4-6.7) Basophils (%) (Auto) 1.3 % (0.3-1.4) Nucleated RBC Relative Count (auto) 0.0 /100WBC Neutrophils # (Auto) 2.0 K/uL (2.0-7.4) Lymphocytes # (Auto) 1.3 K/uL (1.3-3.6) Monocytes # (Auto) 0.5 K/uL (0.3-1.0) Eosinophils # (Auto) 0.1 K/uL (0.0-0.5) Basophils # (Auto) 0.0 K/uL (0.0-0.1) Nucleated RBC Absolute Count (auto) 0.00 K/uL Peripheral Blood Smear Yes Y/N Sodium Level 140 mmol/L (137-145) Potassium Level 4.5 mmol/L (3.5-5.0) Chloride Level 109 mmol/L (98-107) Carbon Dioxide Level 26 mmol/L (22-30) Blood Urea Nitrogen 14 mg/dl (9-21) Creatinine 0.70 mg/dl (0.66-1.25) Glomerular Filtration Rate Calc > 60.0 Random Glucose 100 mg/dl (75-110) Calcium Level 9.1 mg/dl (8.4-10.2) Total Bilirubin 0.6 mg/dl (0.2-1.3) Aspartate Amino Transf (AST/SGOT) 66 U/L (0-35) Alanine Aminotransferase (ALT/SGPT) 61 U/L (0-56) Alkaline Phosphatase 52 U/L (0-126) Total Protein 6.8 g/dl (6.3-8.2) Albumin 3.5 g/dl (3.5-5.0) Urine Color Yellow Urine Clarity Clear Urine pH 6.0 pH (4.8-9.5) Urine Specific [place] 1.016 Urine Protein Negative mg/dL (NEGATIVE) Urine Glucose (UA) Negative mg/dL (NEGATIVE) Urine Ketones Negative mg/dL (NEGATIVE) Urine Blood Negative (NEGATIVE) Urine Nitrite Negative (NEGATIVE) Urine Bilirubin Negative (NEGATIVE) Urine Urobilinogen Negative mg/dL (0.2-1.9) Urine Leukocyte Esterase Negative (NEGATIVE) Urine RBC None /HPF (0-2/HPF) Urine WBC None /HPF (0-5/HPF) Urine Squamous Epithelial Cells None /LPF (</=FEW) Urine Bacteria Negative /HPF (NONE-FEW) Urine Mucus None /HPF (NONE-FEW) Chemistry Test 05/25/18 11:47 05/25/18 11:56 White Blood Count 3.9 k/uL (4.5-11.0) Red Blood Count 4.71 M/uL (4.00-5.60) Hemoglobin 16.4 g/dL (14.0-18.0) Hematocrit 48.0 % (42.0-52.0) Mean Corpuscular Volume 102.0 fL (80.0-96.0) Mean Corpuscular Hemoglobin 34.9 pg (26.0-33.0) Mean Corpuscular Hemoglobin Concent 34.2 g/dL (32.0-36.0) Red Cell Distribution Width 13.4 % (11.5-14.5) Platelet Count 93 K/uL (150-450) Mean Platelet Volume 10.3 fL (7.2-11.1) Neutrophils (%) (Auto) 50.9 % (39.4-72.5) Lymphocytes (%) (Auto) 34.3 % (17.6-49.6) Monocytes (%) (Auto) 11.9 % (4.1-12.4) Eosinophils (%) (Auto) 1.6 % (0.4-6.7) Basophils (%) (Auto) 1.3 % (0.3-1.4) Nucleated RBC Relative Count (auto) 0.0 /100WBC Neutrophils # (Auto) 2.0 K/uL (2.0-7.4) Lymphocytes # (Auto) 1.3 K/uL (1.3-3.6) Monocytes # (Auto) 0.5 K/uL (0.3-1.0) Eosinophils # (Auto) 0.1 K/uL (0.0-0.5) Basophils # (Auto) 0.0 K/uL (0.0-0.1) Nucleated RBC Absolute Count (auto) 0.00 K/uL Peripheral Blood Smear Yes Y/N Glomerular Filtration Rate Calc > 60.0 Calcium Level 9.1 mg/dl (8.4-10.2) Total Bilirubin 0.6 mg/dl (0.2-1.3) Aspartate Amino Transf (AST/SGOT) 66 U/L (0-35) Alanine Aminotransferase (ALT/SGPT) 61 U/L (0-56) Alkaline Phosphatase 52 U/L (0-126) Total Protein 6.8 g/dl (6.3-8.2) Albumin 3.5 g/dl (3.5-5.0) Urine Color Yellow Urine Clarity Clear Urine pH 6.0 pH (4.8-9.5) Urine Specific [place] 1.016 Urine Protein Negative mg/dL (NEGATIVE) Urine Glucose (UA) Negative mg/dL (NEGATIVE) Urine Ketones Negative mg/dL (NEGATIVE) Urine Blood Negative (NEGATIVE) Urine Nitrite Negative (NEGATIVE) Urine Bilirubin Negative (NEGATIVE) Urine Urobilinogen Negative mg/dL (0.2-1.9) Urine Leukocyte Esterase Negative (NEGATIVE) Urine RBC None /HPF (0-2/HPF) Urine WBC None /HPF (0-5/HPF) Urine Squamous Epithelial Cells None /LPF (</=FEW) Urine Bacteria Negative /HPF (NONE-FEW) Urine Mucus None /HPF (NONE-FEW) Urinalysis Test 05/25/18 11:56 Urine Color Yellow Urine Clarity Clear Urine pH 6.0 pH (4.8-9.5) Urine Specific [place] 1.016 Urine Protein Negative mg/dL (NEGATIVE) Urine Glucose (UA) Negative mg/dL (NEGATIVE) Urine Ketones Negative mg/dL (NEGATIVE) Urine Blood Negative (NEGATIVE) Urine Nitrite Negative (NEGATIVE) Urine Bilirubin Negative (NEGATIVE) Urine Urobilinogen Negative mg/dL (0.2-1.9) Urine Leukocyte Esterase Negative (NEGATIVE) Urine RBC None /HPF (0-2/HPF) Urine WBC None /HPF (0-5/HPF) Urine Squamous Epithelial Cells None /LPF (</=FEW) Urine Bacteria Negative /HPF (NONE-FEW) Urine Mucus None /HPF (NONE-FEW) EKG/Imaging Imaging Location: [facility] Patient: Rito Falk : 1965 Visit/Account:[id number] Date of Sevice: 05/25/2018 ABDOMEN/PELVIS WITH CONTRAST HISTORY: rlq pain, with hernia x3 wks, ? Incarcerated TECHNIQUE: Following administration of IV contrast contiguous axial images acquired through the abdomen/pelvis. Coronal and sagittal reformatting also performed.Dose Lowering Technique One of the following dose optimization techniques was utilized in the performance of this exam: Automated exposure control; adjustment of the mA and/or kV according to the patient's size; or use of an iterative reconstruction technique. Specific details can be referenced in the facility's radiology CT exam operational policy. CONTRAST: 75 mL Isovue-370 COMPARISON: March 08, 2018 FINDINGS: Visualized lung bases: Negative. Hepatobiliary: Diffuse hepatic steatosis is again noted. Subtle nodularity of the liver contour also again seen. The gallbladder is distended although has a similar appearance to the prior examination. No biliary ductal dilatation is identified. Spleen: Borderline splenomegaly, accessory splenule Adrenals: Negative. Pancreas: Negative. Kidneys ureters or bladder: Kidneys appear unremarkable. The bladder wall is mildly thickened Genitalia: Coarse calcifications are seen within the prostate GI: The appendix is visualized does not appear inflamed. Vessels/spaces/nodes: The previously mentioned leonardo hepatis lymph node measures 1.8 x 1.2 cm previously 2.1 x 1.2 cm, image 28 Previously mentioned portal caval lymph node measures 1.3 x 2.5 cm, image 38. This previously measured 1.4 x 2.6 cm. Other small scattered celiac and leonardo hepatis nodes have remained stable Bones/soft tissues: There is a small umbilical hernia containing fat Additional findings: None pertinent. IMPRESSION: Previously mentioned leonardo hepatis and celiac lymph nodes are either stable or smaller. Borderline splenomegaly unchanged Diffuse hepatic steatosis unchanged Subtle nodularity of the liver contour is also seen. This can be seen with cirrhosis although correlation with symptoms needed Gallbladder is distended although appears similar to the prior study with no evidence of biliary ductal dilatation Bladder wall is mildly thickened Small umbilical hernia containing fat Report Dictated By: Ana Lilia Leonard MD at 05/25/2018 12:38 PM Report E-Signed By: Ana Lilia Leonard MD at 05/25/2018 12:55 PM WSN:[email or web address] ED Course/Re-evaluation ED Course The patient was admitted to room. A history of square obtained. Differential diagnoses were considered. An IV was started. A CBC, CMP and UA were collected. Lab studies unchanged from previous laboratory studies, negative UA. A CT of the abdomen and pelvis showing no acute hernia incarceration or other concerning findings at this time. The gallbladder is probably the same size as noted on previous imaging. I did recommend following up with Dr. Kurtz again for definitive treatment of gallbladder concerns and/or discussion of repairing the abdominal wall for intermittent hernia. The patient was also struck to follow-up with his primary care provider at the [facility]. Patient expressed understanding and was discharged home. Decision to Disposition Date: May 25, 2018 Decision to Disposition Time: 13:37 Depart Departure Latest Vital Signs Vital Signs Date Time Temp Pulse Resp B/P (MAP) Pulse Ox O2 Delivery O2 Flow Rate FiO2 05/25/18 13:35 59 92 05/25/18 13:30 138/93 (108) 05/25/18 10:52 97.3 14 Room Air Impression: Primary Impression: Abdominal pain Condition: Improved Disposition: HOME OR SELF-CARE Referrals: ROBBY HUYNH MD Patient Instructions: Abdominal Pain (ED) Additional Instructions: There were no new concerning findings on the CT of her abdomen and pelvis today. Please follow up with Dr. Huynh for definitive treatment of your gallbladder as well as your hernia concerns. There is nothing noted on the CT or blood work that would prevent your from going home. Be sure to follow up with the [facility] clinic, perhaps they can help with follow up too. Drink plenty of water. Get plenty of rest. Return to the ED for any other concerns or worsening symptoms. Problem Qualifiers Primary Impression: Abdominal pain Abdominal location: right lower quadrant Qualified Codes: R10.31 - Right lower quadrant pain JONNY ELISE POWDER COATER-BC May 25, 2018 10:55
[2018-05-25] MEDS ORDERED: IOPAMIDOL 76% 50 ML INFUS BTL 50 ML ONE ×2 (11:29)
[2018-05-25 11:52] LABS: PLATELET COUNT, AUTOMATED 93 K/uL (150-450)
--- NOTE | 2018-05-25 13:00 | RADIOLOGY IMAGING REPORT ---
FACILITY: [facility] PATIENT NAME: Rito Falk : 1965 MR: [id number] V: [id number] EXAM DATE: ORDERING PHYSICIAN: JONNY ELISE TECHNOLOGIST: Location: [facility] [place] Patient: Rito Falk : 1965 Visit/Account:[id number] Date of Sevice: 05/25/2018 ABDOMEN/PELVIS WITH CONTRAST HISTORY: rlq pain, with hernia x3 wks, ? Incarcerated TECHNIQUE: Following administration of IV contrast contiguous axial images acquired through the abdom en/pelvis. Coronal and sagittal reformatting also performed.Dose Lowering Technique One of the following dose optimization techniques was utilized in the performance of this exam: Autom ated exposure control; adjustment of the mA and/or kV according to the patient's size; or use of an i terative reconstruction technique. Specific details can be referenced in the facility's radiology C T exam operational policy. CONTRAST: 75 mL Isovue-370 COMPARISON: March 08, 2018 FINDINGS: Visualized lung bases: Negative. Hepatobiliary: Diffuse hepatic steatosis is again noted. Subtle nodularity of the liver contour als o again seen. The gallbladder is distended although has a similar appearance to the prior examination. No biliary ductal dilatation is identified. Spleen: Borderline splenomegaly, accessory splenule Adrenals: Negative. Pancreas: Negative. Kidneys ureters or bladder: Kidneys appear unremarkable. The bladder wall is mildly thickened Genitalia: Coarse calcifications are seen within the prostate GI: The appendix is visualized does not appear inflamed. Vessels/spaces/nodes: The previously mentioned leonardo hepatis lymph node measures 1.8 x 1.2 cm previo usly 2.1 x 1.2 cm, image 28 Previously mentioned portal caval lymph node measures 1.3 x 2.5 cm, image 38. This previously measur ed 1.4 x 2.6 cm. Other small scattered celiac and leonardo hepatis nodes have remained stable Bones/soft tissues: There is a small umbilical hernia containing fat Additional findings: None pertinent. IMPRESSION: Previously mentioned leonardo hepatis and celiac lymph nodes are either stable or smaller. Borderline splenomegaly unchanged Diffuse hepatic steatosis unchanged Subtle nodularity of the liver contour is also seen. This can be seen with cirrhosis although correl ation with symptoms needed Gallbladder is distended although appears similar to the prior study with no evidence of biliary duct al dilatation Bladder wall is mildly thickened Small umbilical hernia containing fat Report Dictated By: Ana Lilia Leonard MD at 05/25/2018 12:38 PM Report E-Signed By: Ana Lilia Leonard MD at 05/25/2018 12:55 PM WSN:[email or web address]
[2018-05-25 13:30] VITALS: BP 138/93
== END 2018-05-25 14:20 | disposition home or self-care (01) ==
LOC: ER 11:00
DX: R10.31 Right lower quadrant pain (principal)
CPT/HCPCS: 74177; 81001; 85025; 99284; Q9967; 82040; 82247; 82310; 82374; 82435; 82565; 82947; 84075; 84132; 84155; 84295; 84450; 84460; 84520

== ENCOUNTER 2018-06-07 14:21 | Emergency (ER) | payer SELFPAY ==
--- NOTE | 2018-06-07 14:26 | ER Report ---
History and Physical Time Seen By MD: 14:26 HPI/ROS 53-year-old male with known hepatitis and alcoholic cirrhosis presents to the emergency department with pain in his right inguinal region that has been ongoing for weeks. Normal bowel movements. No dysuria or hematuria. History of hernia. Fever chills. Has had a negative testicular ultrasound and CT scan within the past month. Not remember any trauma to the area. No abdominal pain or flank pain. No fever chills. Remainder of the 14 system rev: Yes Allergies: Coded Allergies: No Known Drug Allergies (Unverified , 02/08/18) Home Meds Discontinued Reported Medications Multivits,Ca,Minerals/Iron/Fa (THERA-M TABLET) 1 Each Tablet, 1 EACH PO DAILY 03/22/18 Discontinued Scripts Tramadol Hcl (TRAMADOL HCL) 50 Mg Tablet, 50 MG PO Q6H PRN for PAIN, #12 TAB 0 Refills Prov:LESA NEGRON DO 04/16/18 Reviewed Nurses Notes: Yes Old Medical Records Reviewed: Yes Hx Smoking: Yes Smoking Status: Current: Every Day Smoker Exposure to Second Hand Smoke?: Yes Hx Substance Use Disorder: No Hx Alcohol Use: Yes Constitutional Vital Sign - Last 24 Hours 06/07/18 06/07/18 06/07/18 06/07/18 14:25 14:28 14:30 14:51 Temp 97.6 Pulse 79 69 Resp 18 B/P (MAP) 143/80 143/85 (104) 128/78 (95) Pulse Ox 96 93 06/07/18 06/07/18 06/07/18 06/07/18 15:00 15:21 15:30 15:51 Pulse 68 69 B/P (MAP) 121/79 (93) 128/88 (101) Pulse Ox 94 94 06/07/18 06/07/18 06/07/18 06/07/18 16:00 16:21 16:30 16:51 Pulse 67 66 B/P (MAP) 125/86 (99) 130/79 (96) Pulse Ox 95 93 Physical Exam General Appearance: The patient is alert, has no immediate need for airway protection and no current signs of toxicity. Eyes: Pupils equal and round no injection. Respiratory: Chest is non tender, lungs are clear to auscultation. Cardiac: regular rate and rhythm Gastrointestinal: Abdomen is soft and non tender, no masses, bowel sounds normal. : soft tissue swelling and TTP at the right inguinal region. No hernia noted. No testicular TTP Skin: No rashes or lesions. DIFFERENTIAL DIAGNOSIS: After history and physical exam differential diagnosis was considered for inguinal pain including but not limited to epididymitis, orchitis, referred pain from kidney stone, inguinal hernia, and torsion of the testicle. Medical Decision Making Data Points Result Diagram: 06/07/18 1506 06/07/18 1506 Laboratory Hematology Test 06/07/18 14:35 06/07/18 15:06 Urine Color Nicole Urine Clarity Clear Urine pH 5.0 pH (4.8-9.5) Urine Specific [place] 1.027 Urine Protein Negative mg/dL (NEGATIVE) Urine Glucose (UA) Negative mg/dL (NEGATIVE) Urine Ketones Trace mg/dL (NEGATIVE) Urine Blood Negative (NEGATIVE) Urine Nitrite Negative (NEGATIVE) Urine Bilirubin Small (NEGATIVE) Urine Urobilinogen 2.0 mg/dL (0.2-1.9) Urine Leukocyte Esterase Negative (NEGATIVE) Urine RBC None /HPF (0-2/HPF) Urine WBC 1 /HPF (0-5/HPF) Urine Squamous Epithelial Cells Few /LPF (</=FEW) Urine Bacteria Negative /HPF (NONE-FEW) Urine Mucus Few /HPF (NONE-FEW) Red Blood Count 4.79 M/uL (4.00-5.60) Mean Corpuscular Volume 99.3 fL (80.0-96.0) Mean Corpuscular Hemoglobin 34.5 pg (26.0-33.0) Mean Corpuscular Hemoglobin Concent 34.7 g/dL (32.0-36.0) Red Cell Distribution Width 13.3 % (11.5-14.5) Mean Platelet Volume 10.7 fL (7.2-11.1) Neutrophils (%) (Auto) 47.8 % (39.4-72.5) Lymphocytes (%) (Auto) 39.4 % (17.6-49.6) Monocytes (%) (Auto) 10.0 % (4.1-12.4) Eosinophils (%) (Auto) 1.4 % (0.4-6.7) Basophils (%) (Auto) 1.4 % (0.3-1.4) Nucleated RBC Relative Count (auto) 0.0 /100WBC Neutrophils # (Auto) 1.8 K/uL (2.0-7.4) Lymphocytes # (Auto) 1.5 K/uL (1.3-3.6) Monocytes # (Auto) 0.4 K/uL (0.3-1.0) Eosinophils # (Auto) 0.1 K/uL (0.0-0.5) Basophils # (Auto) 0.1 K/uL (0.0-0.1) Nucleated RBC Absolute Count (auto) 0.00 K/uL Sodium Level 137 mmol/L (137-145) Potassium Level 4.3 mmol/L (3.5-5.0) Chloride Level 105 mmol/L (98-107) Carbon Dioxide Level 25 mmol/L (22-30) Blood Urea Nitrogen 11 mg/dl (9-21) Creatinine 0.80 mg/dl (0.66-1.25) Glomerular Filtration Rate Calc > 60.0 Random Glucose 94 mg/dl (75-110) Calcium Level 9.6 mg/dl (8.4-10.2) Total Bilirubin 0.8 mg/dl (0.2-1.3) Aspartate Amino Transf (AST/SGOT) 58 U/L (0-35) Alanine Aminotransferase (ALT/SGPT) 59 U/L (0-56) Alkaline Phosphatase 58 U/L (0-126) Total Protein 7.4 g/dl (6.3-8.2) Albumin 3.9 g/dl (3.5-5.0) Chemistry Test 06/07/18 14:35 06/07/18 15:06 Urine Color Nicole Urine Clarity Clear Urine pH 5.0 pH (4.8-9.5) Urine Specific [place] 1.027 Urine Protein Negative mg/dL (NEGATIVE) Urine Glucose (UA) Negative mg/dL (NEGATIVE) Urine Ketones Trace mg/dL (NEGATIVE) Urine Blood Negative (NEGATIVE) Urine Nitrite Negative (NEGATIVE) Urine Bilirubin Small (NEGATIVE) Urine Urobilinogen 2.0 mg/dL (0.2-1.9) Urine Leukocyte Esterase Negative (NEGATIVE) Urine RBC None /HPF (0-2/HPF) Urine WBC 1 /HPF (0-5/HPF) Urine Squamous Epithelial Cells Few /LPF (</=FEW) Urine Bacteria Negative /HPF (NONE-FEW) Urine Mucus Few /HPF (NONE-FEW) White Blood Count 3.8 k/uL (4.5-11.0) Red Blood Count 4.79 M/uL (4.00-5.60) Hemoglobin 16.5 g/dL (14.0-18.0) Hematocrit 47.6 % (42.0-52.0) Mean Corpuscular Volume 99.3 fL (80.0-96.0) Mean Corpuscular Hemoglobin 34.5 pg (26.0-33.0) Mean Corpuscular Hemoglobin Concent 34.7 g/dL (32.0-36.0) Red Cell Distribution Width 13.3 % (11.5-14.5) Platelet Count 85 K/uL (150-450) Mean Platelet Volume 10.7 fL (7.2-11.1) Neutrophils (%) (Auto) 47.8 % (39.4-72.5) Lymphocytes (%) (Auto) 39.4 % (17.6-49.6) Monocytes (%) (Auto) 10.0 % (4.1-12.4) Eosinophils (%) (Auto) 1.4 % (0.4-6.7) Basophils (%) (Auto) 1.4 % (0.3-1.4) Nucleated RBC Relative Count (auto) 0.0 /100WBC Neutrophils # (Auto) 1.8 K/uL (2.0-7.4) Lymphocytes # (Auto) 1.5 K/uL (1.3-3.6) Monocytes # (Auto) 0.4 K/uL (0.3-1.0) Eosinophils # (Auto) 0.1 K/uL (0.0-0.5) Basophils # (Auto) 0.1 K/uL (0.0-0.1) Nucleated RBC Absolute Count (auto) 0.00 K/uL Glomerular Filtration Rate Calc > 60.0 Calcium Level 9.6 mg/dl (8.4-10.2) Total Bilirubin 0.8 mg/dl (0.2-1.3) Aspartate Amino Transf (AST/SGOT) 58 U/L (0-35) Alanine Aminotransferase (ALT/SGPT) 59 U/L (0-56) Alkaline Phosphatase 58 U/L (0-126) Total Protein 7.4 g/dl (6.3-8.2) Albumin 3.9 g/dl (3.5-5.0) Urinalysis Test 06/07/18 14:35 Urine Color Nicole Urine Clarity Clear Urine pH 5.0 pH (4.8-9.5) Urine Specific [place] 1.027 Urine Protein Negative mg/dL (NEGATIVE) Urine Glucose (UA) Negative mg/dL (NEGATIVE) Urine Ketones Trace mg/dL (NEGATIVE) Urine Blood Negative (NEGATIVE) Urine Nitrite Negative (NEGATIVE) Urine Bilirubin Small (NEGATIVE) Urine Urobilinogen 2.0 mg/dL (0.2-1.9) Urine Leukocyte Esterase Negative (NEGATIVE) Urine RBC None /HPF (0-2/HPF) Urine WBC 1 /HPF (0-5/HPF) Urine Squamous Epithelial Cells Few /LPF (</=FEW) Urine Bacteria Negative /HPF (NONE-FEW) Urine Mucus Few /HPF (NONE-FEW) ED Course/Re-evaluation ED Course I spoke with the radiologist about this patient. There is no hernia or lymphadenopathy. Normal ua. Labs at baseline. No pain in the testicle. History and physical as well as as CT scan are consistent with soft tissue swelling from likely trauma. Given history of alcohol use, patient could have had trauma and does not remember. We will treat with NSAIDs and a short course of oxycodone. Will follow up with PCM. Decision to Disposition Date: Jun 07, 2018 Decision to Disposition Time: 17:59 Depart Departure Latest Vital Signs Vital Signs Date Time Temp Pulse Resp B/P (MAP) Pulse Ox O2 Delivery O2 Flow Rate FiO2 06/07/18 16:51 66 93 06/07/18 16:30 130/79 (96) 06/07/18 14:25 97.6 18 Impression: Primary Impression: Pelvic injury Condition: Improved Disposition: HOME OR SELF-CARE Referrals: FRANKY MCKEON (PCP) New Scripts Tramadol Hcl (TRAMADOL HCL) 50 Mg Tablet 50-100 MG PO Q4-6H for 5 Days, #10 TAB Prov: LEAH LAMBERT MD 06/07/18 Patient Instructions: Pelvic Pain (ED) Problem Qualifiers Primary Impression: Pelvic injury Encounter type: initial encounter Qualified Codes: S39.93XA - Unspecified injury of pelvis, initial encounter LEAH LAMBERT MD Jun 07, 2018 14:26
[2018-06-07 15:20] LABS: PLATELET COUNT, AUTOMATED 85 K/uL (150-450)
[2018-06-07] MEDS ORDERED: MORPHINE 4 MG/ML SDV IVP ONE (16:45)
[2018-06-07] MEDS ORDERED: ONDANSETRON 4 MG/2 ML VIAL ONE (16:49)
[2018-06-07] MEDS ORDERED: IOPAMIDOL 76% 75 ML INFUS BTL 75 ML ONE (16:56)
--- NOTE | 2018-06-07 17:44 | RADIOLOGY IMAGING REPORT ---
FACILITY: [facility] PATIENT NAME: Rito Falk : 1965 MR: [id number] V: [id number] EXAM DATE: ORDERING PHYSICIAN: LEAH LAMBERT TECHNOLOGIST: Location: [facility] Patient: Rito Falk : 1965 Visit/Account:[id number] Date of Sevice: 06/07/2018 EXAMINATION: CT abdomen and pelvis with contrast COMPARISON: 05/25/2018 and earlier. HISTORY: Right pelvic pain/mass. PROCEDURE: Multiplanar contrast enhanced CT of the abdomen and pelvis with 75 mL intravenous Isovue 3 70. One of the following dose optimization techniques was utilized in the performance of this exam: A utomated exposure control; adjustment of the mA and/or kV according to the patient's size; or use of an iterative reconstruction technique. Specific details can be referenced in the facility's radiolo gy CT exam operational policy. FINDINGS: Visualized thorax: No acute findings. Liver: Subtle micronodular contour is redemonstrated. No focal hepatic mass or perihepatic free flui d. Gallbladder and biliary system: Similar to the prior study the gallbladder is favored but there is no evidence of calcified gallstones or gallbladder wall thickening/inflammation. New on today's study i s mild dilation of the intrahepatic and extrahepatic bile ducts; the common bile duct now measures 10 mm in maximal diameter, previously 7 mm. No radiopaque intraductal stone or obstructing mass is master ntified. Spleen: Homogeneous 14.5 cm spleen. Pancreas: Negative. Adrenal glands: Negative. Kidneys and bladder: No renal mass or evidence of an obstructive uropathy. Urinary bladder is unrema rkable. Vessels: Aortoiliac mild atherosclerosis. No abdominal aortic aneurysm. IVC is unremarkable. Leonardo l veins, portal confluence, and splenic vein are patent. There are a few small perigastric portosyst emic collaterals and a small splenorenal shunt. Bowel and mesentery: No gastric distention. No small bowel obstruction or inflammation. Appendix is unremarkable. Minimal stool in the colon. There are a few distal colonic diverticula. No bowel or mesenteric inflammation. Pelvic organs: Negative. Lymph nodes: A few prominent leonardo hepatis lymph nodes are unchanged. Free air/free fluid: None. Abdominal wall and osseous structures: Focal soft tissue swelling and thickening in the region of the right inguinal canal has increased since 05/25/2018 and is new since 03/08/2018. The spermatic cord both distal and proximal to the canal is unremarkable. There is no evidence of an underlying hernia. Mild degenerative change throughout the visualized osseous structures. No acute findings. IMPRESSION: 1. Nodular liver, mild splenomegaly, and portosystemic collaterals is highly suggestive of cirrhosis with portal hypertension. 2. Unchanged gallbladder distention with no CT evidence of gallbladder wall inflammation. 3. New on today's study is mild intrahepatic and extrahepatic bile duct dilation. Although no obstr ucting stone or mass is identified, correlation with any clinical evidence of biliary obstruction is recommended. 4. Right inguinal canal asymmetric soft tissue thickening which is new since 03/08/2018. This is non specific but posttraumatic swelling is favored. No definite underlying hernia is identified and the sequela of an incarcerated/strangulated hernia is considered unlikely. Focal inflammation secondary to a vasitis is also considered unlikely. Recommend clinical follow-up with surgical consultation as clinically indicated. Results were discussed with LEAH LAMBERT at 06/07/2018 5:30 PM. Report Dictated By: Imtiaz Ramirez MD at 06/07/2018 5:18 PM Report E-Signed By: Imtiaz Ramirez MD at 06/07/2018 5:40 PM [id number]:[email or web address]
[2018-06-07 18:00] VITALS: BP 131/82
[2018-06-07] MEDS ORDERED: TRAM-420 PO (18:02)
== END 2018-06-07 18:11 | disposition home or self-care (01) ==
LOC: ER 14:44
DX: S39.93XA Unspecified injury of pelvis, initial encounter (principal)
CPT/HCPCS: 74177; 81001; 85025; 96374; 96375; 99284; J2270; J2405; Q9967; 82040; 82247; 82310; 82374; 82435; 82565; 82947; 84075; 84132; 84155; 84295; 84450; 84460; 84520

== ENCOUNTER 2018-08-01 10:52 | Emergency (ER) | payer SELFPAY ==
[~2018-08-01 10:52] MED LIST changes: +METR500T15 PO; -METR500T54 PO
--- NOTE | 2018-08-01 11:02 | ER Report ---
History and Physical Time Seen By MD: 11:02 Hx. of Stated Complaint: PATIENT REPORTS PAIN IN THE RIGHT SIDE OF THE PELVIC AREA THAT RADIATES DOWN TO THE TESTICLES. HAS BEEN GOING ON FOR 4 TO 5 MONTHS, GOT A LOT WORSE TODAY HPI/ROS CHIEF COMPLAINT: Pelvic pain radiating down to the right testicle HISTORY OF PRESENT ILLNESS: 53-year-old male patient presents to emergency room with complaint of pelvic pain that radiates down into the right testicle. Patient states that been going on for the past several months. He states it seems even worse over the last couple of days. He denies having any fevers, chills, nausea, vomiting or diarrhea. Patient states he has not been taking any medication for this. Patient states that activity seems to make the pain worse. 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 Patient denies having any nausea or vomiting. He states he's been seen by his primary care provider who referred him to surgery. Surgeon reviewed the images and did not see any hernia and told him that he was not sure what the underlying cause of his pain was. REVIEW OF SYSTEMS: Respiratory: No cough, no dyspnea. Cardiovascular: No chest pain, no palpitations. Gastrointestinal: As noted above Musculoskeletal: No back pain. Allergies: Coded Allergies: No Known Drug Allergies (Unverified , 02/08/18) Home Meds Active Scripts Tramadol Hcl (TRAMADOL HCL) 50 Mg Tablet, 50-100 MG PO Q4-6H for 5 Days, #10 TAB Prov:LEAH LAMBERT MD 06/07/18 Past Medical/Surgical History Patient has a past medical history of pneumonia, COPD, cholecystitis, back pain, hep C positive, alcohol abuse. Patient denies having any pertinent surgical history. Patient has a family medical history of cancer, diabetes. Reviewed Nurses Notes: Yes Hx Smoking: Yes Smoking Status: Current: Every Day Smoker Exposure to Second Hand Smoke?: Yes Hx Substance Use Disorder: No Hx Alcohol Use: Yes Constitutional Vital Sign - Last 24 Hours 08/01/18 08/01/18 08/01/18 08/01/18 10:58 10:59 11:22 11:30 Temp 98.5 Pulse 77 69 Resp 16 B/P (MAP) 123/72 123/92 (102) 123/82 (96) Pulse Ox 93 90 O2 Delivery Room Air 08/01/18 08/01/18 08/01/18 08/01/18 11:52 12:00 12:22 12:30 Pulse 65 63 B/P (MAP) 128/72 (90) 116/96 (103) Pulse Ox 93 08/01/18 08/01/18 12:50 12:55 Pulse 59 B/P (MAP) 121/88 (99) Pulse Ox 94 Physical Exam General Appearance: The patient is alert, has no immediate need for airway protection and no current signs of toxicity. Respiratory: Chest is non tender, lungs are clear to auscultation. Cardiac: regular rate and rhythm Gastrointestinal: Abdomen is soft and non tender, patient does have swelling in the right inguinal area, is tender to touch, also has tenderness to the right testicle, left testicles nontender. No masses, bowel sounds normal. Musculoskeletal: Neck: Neck is supple and non tender. Extremities have full range of motion and are non tender. Skin: No rashes or lesions. DIFFERENTIAL DIAGNOSIS: After history and physical exam differential diagnosis was considered for hernia, soft tissue mass, epididymitis, testicular torsion. Medical Decision Making Data Points Result Diagram: 08/01/18 1122 08/01/18 1122 Laboratory Hematology Test 08/01/18 10:55 08/01/18 11:22 Urine Color Yellow Urine Clarity Clear Urine pH 5.0 pH (4.8-9.5) Urine Specific [place] 1.008 Urine Protein Negative mg/dL (NEGATIVE) Urine Glucose (UA) Negative mg/dL (NEGATIVE) Urine Ketones Negative mg/dL (NEGATIVE) Urine Blood Negative (NEGATIVE) Urine Nitrite Negative (NEGATIVE) Urine Bilirubin Negative (NEGATIVE) Urine Urobilinogen Negative mg/dL (0.2-1.9) Urine Leukocyte Esterase Negative (NEGATIVE) Urine RBC None /HPF (0-2/HPF) Urine WBC <1 /HPF (0-5/HPF) Urine Squamous Epithelial Cells None /LPF (</=FEW) Urine Bacteria Negative /HPF (NONE-FEW) Urine Mucus None /HPF (NONE-FEW) Red Blood Count 4.70 M/uL (4.00-5.60) Mean Corpuscular Volume 99.8 fL (80.0-96.0) Mean Corpuscular Hemoglobin 34.6 pg (26.0-33.0) Mean Corpuscular Hemoglobin Concent 34.7 g/dL (32.0-36.0) Red Cell Distribution Width 13.1 % (11.5-14.5) Mean Platelet Volume 9.9 fL (7.2-11.1) Neutrophils (%) (Auto) 63.3 % (39.4-72.5) Lymphocytes (%) (Auto) 27.4 % (17.6-49.6) Monocytes (%) (Auto) 6.4 % (4.1-12.4) Eosinophils (%) (Auto) 2.7 % (0.4-6.7) Basophils (%) (Auto) 0.2 % (0.3-1.4) Nucleated RBC Relative Count (auto) 0.0 /100WBC Neutrophils # (Auto) 3.1 K/uL (2.0-7.4) Lymphocytes # (Auto) 1.4 K/uL (1.3-3.6) Monocytes # (Auto) 0.3 K/uL (0.3-1.0) Eosinophils # (Auto) 0.1 K/uL (0.0-0.5) Basophils # (Auto) 0.0 K/uL (0.0-0.1) Nucleated RBC Absolute Count (auto) 0.00 K/uL Sodium Level 138 mmol/L (137-145) Potassium Level 4.2 mmol/L (3.5-5.0) Chloride Level 105 mmol/L (98-107) Carbon Dioxide Level 26 mmol/L (22-30) Blood Urea Nitrogen 10 mg/dl (9-21) Creatinine 0.80 mg/dl (0.66-1.25) Glomerular Filtration Rate Calc > 60.0 Random Glucose 85 mg/dl (75-110) Calcium Level 8.8 mg/dl (8.4-10.2) Total Bilirubin 0.5 mg/dl (0.2-1.3) Aspartate Amino Transf (AST/SGOT) 87 U/L (0-35) Alanine Aminotransferase (ALT/SGPT) 75 U/L (0-56) Alkaline Phosphatase 80 U/L (0-126) Total Protein 7.4 g/dl (6.3-8.2) Albumin 4.1 g/dl (3.5-5.0) Chemistry Test 08/01/18 10:55 08/01/18 11:22 Urine Color Yellow Urine Clarity Clear Urine pH 5.0 pH (4.8-9.5) Urine Specific [place] 1.008 Urine Protein Negative mg/dL (NEGATIVE) Urine Glucose (UA) Negative mg/dL (NEGATIVE) Urine Ketones Negative mg/dL (NEGATIVE) Urine Blood Negative (NEGATIVE) Urine Nitrite Negative (NEGATIVE) Urine Bilirubin Negative (NEGATIVE) Urine Urobilinogen Negative mg/dL (0.2-1.9) Urine Leukocyte Esterase Negative (NEGATIVE) Urine RBC None /HPF (0-2/HPF) Urine WBC <1 /HPF (0-5/HPF) Urine Squamous Epithelial Cells None /LPF (</=FEW) Urine Bacteria Negative /HPF (NONE-FEW) Urine Mucus None /HPF (NONE-FEW) White Blood Count 5.0 k/uL (4.5-11.0) Red Blood Count 4.70 M/uL (4.00-5.60) Hemoglobin 16.3 g/dL (14.0-18.0) Hematocrit 46.9 % (42.0-52.0) Mean Corpuscular Volume 99.8 fL (80.0-96.0) Mean Corpuscular Hemoglobin 34.6 pg (26.0-33.0) Mean Corpuscular Hemoglobin Concent 34.7 g/dL (32.0-36.0) Red Cell Distribution Width 13.1 % (11.5-14.5) Platelet Count 93 K/uL (150-450) Mean Platelet Volume 9.9 fL (7.2-11.1) Neutrophils (%) (Auto) 63.3 % (39.4-72.5) Lymphocytes (%) (Auto) 27.4 % (17.6-49.6) Monocytes (%) (Auto) 6.4 % (4.1-12.4) Eosinophils (%) (Auto) 2.7 % (0.4-6.7) Basophils (%) (Auto) 0.2 % (0.3-1.4) Nucleated RBC Relative Count (auto) 0.0 /100WBC Neutrophils # (Auto) 3.1 K/uL (2.0-7.4) Lymphocytes # (Auto) 1.4 K/uL (1.3-3.6) Monocytes # (Auto) 0.3 K/uL (0.3-1.0) Eosinophils # (Auto) 0.1 K/uL (0.0-0.5) Basophils # (Auto) 0.0 K/uL (0.0-0.1) Nucleated RBC Absolute Count (auto) 0.00 K/uL Glomerular Filtration Rate Calc > 60.0 Calcium Level 8.8 mg/dl (8.4-10.2) Total Bilirubin 0.5 mg/dl (0.2-1.3) Aspartate Amino Transf (AST/SGOT) 87 U/L (0-35) Alanine Aminotransferase (ALT/SGPT) 75 U/L (0-56) Alkaline Phosphatase 80 U/L (0-126) Total Protein 7.4 g/dl (6.3-8.2) Albumin 4.1 g/dl (3.5-5.0) Urinalysis Test 08/01/18 10:55 Urine Color Yellow Urine Clarity Clear Urine pH 5.0 pH (4.8-9.5) Urine Specific [place] 1.008 Urine Protein Negative mg/dL (NEGATIVE) Urine Glucose (UA) Negative mg/dL (NEGATIVE) Urine Ketones Negative mg/dL (NEGATIVE) Urine Blood Negative (NEGATIVE) Urine Nitrite Negative (NEGATIVE) Urine Bilirubin Negative (NEGATIVE) Urine Urobilinogen Negative mg/dL (0.2-1.9) Urine Leukocyte Esterase Negative (NEGATIVE) Urine RBC None /HPF (0-2/HPF) Urine WBC <1 /HPF (0-5/HPF) Urine Squamous Epithelial Cells None /LPF (</=FEW) Urine Bacteria Negative /HPF (NONE-FEW) Urine Mucus None /HPF (NONE-FEW) EKG/Imaging Imaging CT scan of the abdomen and pelvis with contrast. HISTORY: Right inguinal swelling. COMPARISON: 06/07/2018. 3 mm thick and [address] images were obtained of the abdomen and pelvis using 75 mL intravenous Isovue-370. No oral contrast. Sagittal and coronal computer reconstructions were performed. One of the following dose optimization techniques was utilized in the performance of this exam: Automated exposure control; adjustment of the mA and/or kV according to the patient's size; or use of an iterative reconstruction technique. Specific details can be referenced in the facility's radiology CT exam operational policy. FINDINGS: Minimal streaky densities are present in the lung bases. The liver and spleen are normal in size. The gallbladder is borderline enlarged and elongated. The pancreas is normal in size. The portal vein is patent. The kidneys and adrenal glands are normal in size. The abdominal aorta and iliac arteries are partially calcified. The appendix is not well-visualized. Several nondilated bowel loops protrude through the abdominal wall into the right inguinal region. The hernia sac measures 6 cm in greatest transverse diameter. Nondilated unopacified bowel loops are scattered elsewhere in the abdomen and pelvis. A small amount of fluid is present superior the right testis. The prostate gland is partially calcified. The urinary bladder is incompletely distended. Degenerative changes are present in the spine and hips. IMPRESSION: Large right inguinal hernia. Small right hydrocele. Mildly hydropic gallbladder. The patient's provider has been paged by the Imaging [employer] at 12:10 PM on 08/01/2018. Report Dictated By: Vinnie Ga MD at 08/01/2018 11:59 AM Report E-Signed By: Vinnie Ga MD at 08/01/2018 12:10 PM ULTRASOUND OF THE SCROTUM AND TESTES HISTORY: right testicular pain COMPARISON: CT abdomen and pelvis from same date. Findings: Standard ultrasound of the testicles and scrotum with color flow and spectral analysis. Right testicle: 5.1 x 3.1 x 2.2 cm. Left testicle: 5.2 x 3.1 x 2.0 cm. Testicles: Testicular echogenicity is homogeneous and symmetric. No focal testicular mass or vascular abnormality. On Doppler evaluation there are normal arterial and venous waveforms within each testicle. Epididymis: The epididymis are within normal limits. No focal epididymal mass or vascular abnormality. Hydrocele: None Varicocele: Bilateral varicocele. Scrotum: Right inguinal hernia containing loops of bowel. IMPRESSION: 1. Right inguinal hernia containing loops of bowel. 2. Bilateral varicocele. 3. Otherwise unremarkable testicular ultrasound. Report Dictated By: Theo Harp MD at 08/01/2018 12:35 PM Report E-Signed By: Theo Harp MD at 08/01/2018 12:38 PM ED Course/Re-evaluation ED Course Patient was admitted to an exam room, history and physical were obtained. Differential diagnoses were considered. On examination lungs are clear, heart is regular, abdomen is soft nontender. Patient does have a significant area of bulging in the right inguinal canal. Does have some tenderness to palpation. An IV was started, a CBC, CMP, urinalysis were obtained. Lab results were unremarkable. The patient did mention he had had previous CT scans. I did review those. On June 07, 2018 patient did have swelling in the right inguinal area, that was considered to be consistent with a hematoma. With this being obvious on physical exam I did go ahead and she is to repeat the CT scan. He also has some tenderness to the right testicle on physical exam. As a result I also did an ultrasound. Ultrasound the testes were unremarkable. There were bilateral hydroceles. They did note a large bowel containing inguinal hernia. That was noted above the ultrasound as well as the CT scan. Does not appear to be incarcerated. As a result we will go ahead and discharge patient home. Patient does have an appointment with Dr. Browne on August 12. We will go ahead and have him follow-up to discuss surgical options. Patient is return to emergency room if he develops worsening pain. Decision to Disposition Date: Aug 01, 2018 Decision to Disposition Time: 12:49 Depart Departure Latest Vital Signs Vital Signs Date Time Temp Pulse Resp B/P (MAP) Pulse Ox O2 Delivery O2 Flow Rate FiO2 08/01/18 12:55 121/88 (99) 08/01/18 12:50 59 94 08/01/18 10:58 98.5 16 Room Air Impression: Primary Impression: Right inguinal hernia Condition: Improved Disposition: HOME OR SELF-CARE Referrals: FRANKY MCKEON (PCP) Patient Instructions: Inguinal Hernia (ED) Additional Instructions: Limit activity by pain. Get plenty of rest. Avoid heavy lifting. Wear compression over the hernia to help add some support. Follow up with Dr. Browne on August 12 as scheduled. Return to the ER if condition worsens. LISA WILCOX Aug 01, 2018 11:02
[2018-08-01] MEDS ORDERED: NS(*) 0.9% 1000 ML BAG 1,000 ML IV ONE (11:15)
[2018-08-01 11:33] LABS: PLATELET COUNT, AUTOMATED 93 K/uL (150-450)
[2018-08-01] MEDS ORDERED: IOPAMIDOL 76% 75 ML INFUS BTL 75 ML ONE (11:44)
--- NOTE | 2018-08-01 12:14 | RADIOLOGY IMAGING REPORT ---
FACILITY: [facility] [place] PATIENT NAME: Rito Falk : 1965 MR: [id number] V: [id number] EXAM DATE: ORDERING PHYSICIAN: LISA WILCOX TECHNOLOGIST: Location: [facility] - [place], [place] Patient: Rito Falk : 1965 Visit/Account:[id number] Date of Sevice: 08/01/2018 CT scan of the abdomen and pelvis with contrast. HISTORY: Right inguinal swelling. COMPARISON: 06/07/2018. 3 mm thick and [address] images were obtained of the abdomen and pelvis using 75 mL intrave nous Isovue-370. No oral contrast. Sagittal and coronal computer reconstructions were performed. One of the following dose optimization techniques was utilized in the performance of this exam: Automated exposure control; adjustment of the mA and/or kV according to the patient's size; or use of an itera tive reconstruction technique. Specific details can be referenced in the facility's radiology CT ex am operational policy. FINDINGS: Minimal streaky densities are present in the lung bases. The liver and spleen are normal in size. The gallbladder is borderline enlarged and elongated. The pa ncreas is normal in size. The portal vein is patent. The kidneys and adrenal glands are normal in siz e. The abdominal aorta and iliac arteries are partially calcified. The appendix is not well-visualized. Several nondilated bowel loops protrude through the abdominal wa ll into the right inguinal region. The hernia sac measures 6 cm in greatest transverse diameter. Nond ilated unopacified bowel loops are scattered elsewhere in the abdomen and pelvis. A small amount of f luid is present superior the right testis. The prostate gland is partially calcified. The urinary ryan dder is incompletely distended. Degenerative changes are present in the spine and hips. IMPRESSION: Large right inguinal hernia. Small right hydrocele. Mildly hydropic gallbladder. The patient's provider has been paged by the Imaging Business Team Leader at 12:10 PM on 08/01/2018. Report Dictated By: Vinnie Ga MD at 08/01/2018 11:59 AM Report E-Signed By: Vinnie Ga MD at 08/01/2018 12:10 PM WSN:[email or web address]
[2018-08-01] MEDS ORDERED: KETOROLAC 15 MG/ML VIAL IVP ONE (12:35)
--- NOTE | 2018-08-01 12:41 | RADIOLOGY IMAGING REPORT ---
FACILITY: [facility] PATIENT NAME: Rito Falk : 1965 MR: [id number] V: [id number] EXAM DATE: ORDERING PHYSICIAN: LISA WILCOX TECHNOLOGIST: Location: [facility] [place] Patient: Rito Falk : 1965 Visit/Account:[id number] Date of Sevice: 08/01/2018 ULTRASOUND OF THE SCROTUM AND TESTES HISTORY: right testicular pain COMPARISON: CT abdomen and pelvis from same date. Findings: Standard ultrasound of the testicles and scrotum with color flow and spectral analysis. Right testicle: 5.1 x 3.1 x 2.2 cm. Left testicle: 5.2 x 3.1 x 2.0 cm. Testicles: Testicular echogenicity is homogeneous and symmetric. No focal testicular mass or vascula r abnormality. On Doppler evaluation there are normal arterial and venous waveforms within each test icle. Epididymis: The epididymis are within normal limits. No focal epididymal mass or vascular abnormalit y. Hydrocele: None Varicocele: Bilateral varicocele. Scrotum: Right inguinal hernia containing loops of bowel. IMPRESSION: 1. Right inguinal hernia containing loops of bowel. 2. Bilateral varicocele. 3. Otherwise unremarkable testicular ultrasound. Report Dictated By: Theo Harp MD at 08/01/2018 12:35 PM Report E-Signed By: Theo Harp MD at 08/01/2018 12:38 PM WSN:[id number]
[2018-08-01 12:55] VITALS: BP 121/88
== END 2018-08-01 13:08 | disposition home or self-care (01) ==
LOC: ER 11:04
DX: K40.90 Unilateral inguinal hernia, without obstruction or gangrene, not specified as recurrent (principal)
CPT/HCPCS: 74177; 76870; 81001; 85025; 96361; 96374; 99284; J1885; J7030; Q9967; 82040; 82247; 82310; 82374; 82435; 82565; 82947; 84075; 84132; 84155; 84295; 84450; 84460; 84520

== ENCOUNTER 2018-08-26 01:21 | Day surgery (SDC) | payer SELFPAY ==
[~2018-08-26] VITALS: Ht 175.3 cm; Wt 65.8 kg
[~2018-08-26 01:21] MED LIST changes: +ACETAMINOPHEN 500 MG TAB PO ONE; +IBUP-136 PO; +PREGABALIN 150 MG CAPSULE PO ONE; +ceFAZolin(*) 2GM/D5W 50ML 50 ML IVPB ONE
[2018-08-26] MEDS ORDERED: ACETAMINOPHEN 500 MG TAB PO ONE (05:15)
[2018-08-26] MEDS ORDERED: PREGABALIN 150 MG CAPSULE PO ONE (05:15)
[2018-08-26] MEDS ORDERED: ceFAZolin(*) 2GM/D5W 50ML 50 ML IVPB ONE (05:15)
[2018-08-26] MEDS ORDERED: ONDANSETRON 4 MG/2 ML VIAL ONE (09:20)
[2018-08-26] MEDS ORDERED: PROPOFOL EMUL(*) 10MG/ML 20 ML 20 ML ONE (09:20)
[2018-08-26] MEDS ORDERED: METOCLOPRAMIDE 10 MG/2 ML SDV ONE (09:20)
[2018-08-26] MEDS ORDERED: LIDOCAINE MPF 1% 5 ML VIAL ONE (09:20)
[2018-08-26] MEDS ORDERED: DEXAMETHASONE SOD 4 MG/ML VIAL ONE (09:21)
[2018-08-26] MEDS ORDERED: ROCURONIUM BROM 10 MG/ML 10 ML ONE (09:23)
[2018-08-26] MEDS ORDERED: ROPIVACAINE 0.5% 20 ML VIAL ONE (09:42)
[2018-08-26] MEDS ORDERED: SUGAMMADEX SOD 200 MG/2 ML SDV ONE (09:57)
[2018-08-26 10:04] VITALS: BP 157/100
[2018-08-26 10:19] LABS: PLATELET COUNT, AUTOMATED 84 K/uL (150-450)
[2018-08-26 10:21] LABS: INR 1.01
[2018-08-26] MEDS ORDERED: fentaNYL CITR 250 MCG/5 ML AMP ONE (10:36)
[2018-08-26] MEDS ORDERED: DOCU-416 PO (10:39)
[2018-08-26] MEDS ORDERED: OXYC-854 PO (10:39)
[2018-08-26] MEDS ORDERED: LIDOCAINE/SOD BICARB 8.4% SYR ID ONE (11:00)
[2018-08-26] MEDS ORDERED: FAMOTIDINE 20 MG TAB PO ONE (11:00)
[2018-08-26] MEDS ORDERED: NORMOSOL R SOLN(*) 1000 ML BAG 1,000 ML IV PRN (11:00)
[2018-08-26] MEDS ORDERED: MIDAZOLAM 2 MG/2 ML VIAL IVP PRN (11:00)
[2018-08-26] MEDS ORDERED: LABETALOL HCL 25 MG/5 ML SYRINGE ONE (11:16)
[2018-08-26] MEDS ORDERED: fentaNYL CITR 100 MCG/2 ML AMP ONE (12:56)
--- NOTE | 2018-08-26 13:06 | Short(Outpt) Discharge Summary ---
Discharge Summary Reason for Hosp/Final Diag: (1) Right inguinal hernia Status: Chronic Hospital Course & Plan: Robotic RIH repair completed without problems. Departure Discharge to: Home, Self Care Discharge Instructions Home Meds Active Scripts Docusate Sodium (COLACE) 100 Mg Capsule, 1 CAP PO BID, #30 CAP 0 Refills TAKE WITH A FULL GLASS OF WATER Prov:ROBBY HUYNH MD 08/26/18 Oxycodone Hcl/Acet 5/325 Mg (ENDOCET 5-325 TABLET) 1 Each Tablet, 1 TAB PO Q4H PRN for PAIN, #20 TAB 0 Refills Prov:ROBBY HUYNH MD 08/26/18 Discontinued Reported Medications Ibuprofen (IBUPROFEN) 200 Mg Capsule, 2 CAP PO PRN PRN for PAIN, CAPSULE 08/12/18 Follow up Referrals: General Surgery - 09/09/18 @ Surgery, General with ROBBY HUYNH MD You have a follow up appointment scheduled with Dr. Huynh on 09/09/18, at 2:30pm. Diet: Regular Activity: No Heavy Lifting Special Instructions: You may remove the white surgical dressings on Friday, August 28, 2018, then you can shower. After showering, leave the incisions open to air but leave the steristrips in place until they fall off on their own. Do not immerse the incisions for 2 weeks. Avoid any activity that involves straining or lifting more than 10 pounds for 2 weeks after surgery. ROBBY HUYNH MD Aug 26, 2018 10:42
--- NOTE | 2018-08-26 13:13 | Post Operative Progress Note ---
Post Operative Progress Note Date: Aug 26, 2018 Time: 10:42 Surgeon: Pavan Dictation number: [id number] Anesthesia: GETA by Dr. Eduardo Pre-Op Diagnosis: RIH Post-Op Diagnosis: DANIA Findings: C/W dx Procedure(s): Robotic RIH repair Specimen Removed:(May be N/A): None Complications: None Fluids: See anesthesia results Estimated Blood Loss: Minimal Date OP Note Dictated: Aug 26, 2018 Time OP Note Dictated: 10:43 ROBBY HUYNH MD Aug 26, 2018 10:43
--- NOTE | 2018-08-26 13:33 | OPERATIVE REPORT 1 ---
EVENT DATE: August 26, 2018 SURGEON: Mat Browne MD ANESTHESIOLOGIST: Tal Eduardo MD ANESTHESIA: General endotracheal. PREOPERATIVE DIAGNOSIS Right inguinal hernia. POSTOPERATIVE DIAGNOSIS Right inguinal hernia. PROCEDURE Robotic right inguinal hernia repair. COMPLICATIONS None. CONDITION Stable. ESTIMATED BLOOD LOSS Minimal. FINDINGS Large indirect hernia. There was no direct hernia. There was no hernia on the left. INDICATIONS This is a 53-year-old gentleman who presented to my office with a large right groin bulge and this was consistent with an inguinal hernia and he was requesting to have it repaired given how symptomatic it was. DESCRIPTION OF PROCEDURE The patient was brought to the operating room, placed supine on the operating table. General endotracheal anesthesia was administered and his abdomen was prepped and draped in sterile fashion. Time-out was completed and I injected the left upper quadrant skin in about the mid clavicular line with 0.5% ropivacaine plain and made a transverse 8 mm incision and used the Veress needle to insufflate the abdomen to a pressure of 15 mmHg. I then inserted an 8 mm robotic port with a camera and focussed the insufflated abdomen without any problems. I then inserted the robotic 30-degree angle scope through this port and under direct visualization placed an 8 mm robotic port in the right upper quadrant in the mid clavicular line and a third 8 mm port in the epigastric midline. I then inspected the groin and noted a large hernia on the right groin but none on the left. The hernia was an indirect hernia. I then inserted a right-sided ProGrip piece of mesh and an absorbable V-Loc suture. I then had the patient placed in Trendelenburg and brought the robot in, docked and targeted the robot and inserted the instruments, scrubbed out and went to the console. I then divided the peritoneum from just medial and anterior of the superior iliac spine all the way across the midline and then stripped the peritoneum down and developed the preperitoneal space along the entire ileopubic tract as well as I identified the pubic symphysis and right pubic tubercle and Barney's ligament. I then the hernia sac away from the cord structures. It was very densely adherent to the cord structures and it went quite a ways down into the inguinal canal so ultimately I ended up dividing the sac and that made it a lot easier to separate from the cord structures. The vas deferens and gonadic vessels were identified and preserved. After it was completely from the cord structures and well proximal to where they splay, I then placed a mesh in the preperitoneal space and unfurled it so it covered the pubic tubercle and Barney's ligament and went all the way across the myopectineal arch and ileopubic tract. It laid nice and flat and covered the whole myopectineal orifice with several centimeters of overlap on all sides. I then sutured the peritoneal incision with V-Loc suture. I then closed the divided peritoneal sac, which I inverted into the peritoneal cavity with a V-Loc suture and then sewed it to the suture line. After this was completed, the needles were removed and instruments removed, robot undocked, abdomen desufflated and then closed the incisions with 4-0 Monocryl subcuticular sutures. Skin was cleaned, dried and Steri-Strips were applied followed by sterile surgical dressings. The patient was awakened and extubated in the operating room and transported to the recovery room in stable condition, having tolerated the procedure without any apparent problems. JOSÉ MIGUEL
[2018-08-26 13:48] VITALS: BP 129/76
[2018-08-26 14:00] VITALS: BP 118/75
--- NOTE | 2018-08-26 14:07 | NUR ---
REVIEWED DISCHARGE INSTRUCTIONS WITH PT. HE STATES UNDERSTANDING. O2 TURNED DOWN TO 1 LITER NC. REINFORCED NEED TO DO RESP EXERCISES OVER THE NEXT FEW DAYS.
[2018-08-26 14:30] VITALS: BP 111/91
[2018-08-26 14:34] VITALS: BP 120/74
[2018-08-26 14:35] VITALS: BP 113/70
== END 2018-08-26 13:48 | disposition home or self-care (01) ==
LOC: OR 01:21
PROVIDERS: ATTEND Surgery
DX: K40.90 Unilateral inguinal hernia, without obstruction or gangrene, not specified as recurrent (principal); J44.9 Chronic obstructive pulmonary disease, unspecified; Z87.891 Personal history of nicotine dependence
CPT/HCPCS: 36415; 49650; 85025; 85610; 85730; J1100; J2001; J2405; J2704; J2765; J2795; J3010; S2900; C1781

== ENCOUNTER 2018-09-18 13:27 | Emergency (ER) | payer SELFPAY ==
[~2018-09-18 13:27] MED LIST changes: -ACETAMINOPHEN 500 MG TAB PO ONE; +DOCU-416 PO; +OXYC-854 PO; -PREGABALIN 150 MG CAPSULE PO ONE; -ceFAZolin(*) 2GM/D5W 50ML 50 ML IVPB ONE
[2018-09-18] MEDS ORDERED: LEDI1TAB (13:46)
--- NOTE | 2018-09-18 13:49 | ER Report ---
History and Physical Time Seen By MD: 13:49 Hx. of Stated Complaint: 40 MIN AGO SEVERE SUDDEN ONSET PAIN R GROIN "FELT LIKE SOMETHING BURST", SWELLING R GROIN HERNIA REPAIR SEV WEEKS AGO L SIDE. HPI/ROS s/p right sided hernia repair approximately one week ago presents with pain in his right inguinal region. The patient at times states the pain has been ongoing since the surgery, but also told nuring staff that it started 40 minutes ago. He tells me that his pain has been ongoing since the surgery. He has seen Dr. Kurtz since the surgery, and complained of pain at that time. He has been diagnosed with a post-op seroma/hematoma. He was scheduled for a CT scan of the pelvis today to evaluate the hernia repair itself. He instead came to the ED. Also states that he has dysuria. No discharge. No fever/chills. No abdominal pain. No n/v/d. Has been having normal Bowel movements. Allergies: Coded Allergies: No Known Drug Allergies (Unverified , 08/21/18) Home Meds Reported Medications Ledipasvir/Sofosbuvir (Harvoni 90-400 mg Tablet) 1 Each Tablet 09/18/18 Discontinued Scripts Docusate Sodium (COLACE) 100 Mg Capsule, 1 CAP PO BID, #30 CAP 0 Refills TAKE WITH A FULL GLASS OF WATER Prov:ROBBY HUYNH MD 08/26/18 Oxycodone Hcl/Acet 5/325 Mg (ENDOCET 5-325 TABLET) 1 Each Tablet, 1 TAB PO Q4H PRN for PAIN, #20 TAB 0 Refills Prov:ROBBY HUYNH MD 08/26/18 Reviewed Nurses Notes: Yes Old Medical Records Reviewed: Yes Hx Smoking: Yes (1/2 PACK PER DAY ) Smoking Status: Current: Every Day Smoker Exposure to Second Hand Smoke?: Yes Hx Substance Use Disorder: No Hx Alcohol Use: Yes (COUPLE BEERS/DAY) Constitutional Vital Sign - Last 24 Hours 09/18/18 09/18/18 09/18/18 09/18/18 13:38 13:38 13:42 13:57 Temp 97.9 Pulse 80 78 ??? Resp 14 B/P (MAP) 126/107 126/107 (113) Pulse Ox 91 94 97 O2 Delivery Room Air 09/18/18 09/18/18 09/18/18 09/18/18 14:00 14:12 14:27 14:30 Pulse 88 84 B/P (MAP) 113/87 (96) 117/91 (100) Pulse Ox 92 92 09/18/18 09/18/18 09/18/18 09/18/18 14:42 14:57 15:00 15:08 Pulse 92 ??? B/P (MAP) ???/??? (1665) 118/76 (90) Pulse Ox 95 95 09/18/18 15:12 Pulse 70 Pulse Ox 92 Physical Exam General Appearance: The patient is alert, has no immediate need for airway protection and no current signs of toxicity. Eyes: Pupils equal and round no injection. Respiratory: Chest is non tender, lungs are clear to auscultation. Cardiac: regular rate and rhythm Gastrointestinal: Abdomen is soft and non tender, no masses, bowel sounds normal. : there is a firm mass at the right inguinal canal. No evidence of bowel. No penile drainage. Skin: No rashes or lesions. Medical Decision Making Data Points Result Diagram: 09/18/18 1443 09/18/18 1443 Laboratory Hematology Test 09/18/18 14:20 09/18/18 14:43 Urine Color Straw Urine Clarity Clear Urine pH 5.0 pH (4.8-9.5) Urine Specific Malone 1.003 Urine Protein Negative mg/dL (NEGATIVE) Urine Glucose (UA) Negative mg/dL (NEGATIVE) Urine Ketones Negative mg/dL (NEGATIVE) Urine Blood Negative (NEGATIVE) Urine Nitrite Negative (NEGATIVE) Urine Bilirubin Negative (NEGATIVE) Urine Urobilinogen Negative mg/dL (0.2-1.9) Urine Leukocyte Esterase Negative (NEGATIVE) Urine RBC <1 /HPF (0-2/HPF) Urine WBC <1 /HPF (0-5/HPF) Urine Squamous Epithelial Cells None /LPF (</=FEW) Urine Bacteria Few /HPF (NONE-FEW) Urine Mucus None /HPF (NONE-FEW) Red Blood Count 5.28 M/uL (4.00-5.60) Mean Corpuscular Volume 98.7 fL (80.0-96.0) Mean Corpuscular Hemoglobin 34.0 pg (26.0-33.0) Mean Corpuscular Hemoglobin Concent 34.4 g/dL (32.0-36.0) Red Cell Distribution Width 13.2 % (11.5-14.5) Mean Platelet Volume 9.6 fL (7.2-11.1) Neutrophils (%) (Auto) 48.4 % (39.4-72.5) Lymphocytes (%) (Auto) 43.3 % (17.6-49.6) Monocytes (%) (Auto) 6.0 % (4.1-12.4) Eosinophils (%) (Auto) 1.3 % (0.4-6.7) Basophils (%) (Auto) 1.0 % (0.3-1.4) Nucleated RBC Relative Count (auto) 0.1 /100WBC Neutrophils # (Auto) 3.8 K/uL (2.0-7.4) Lymphocytes # (Auto) 3.3 K/uL (1.3-3.6) Monocytes # (Auto) 0.5 K/uL (0.3-1.0) Eosinophils # (Auto) 0.1 K/uL (0.0-0.5) Basophils # (Auto) 0.1 K/uL (0.0-0.1) Nucleated RBC Absolute Count (auto) 0.00 K/uL Sodium Level 140 mmol/L (137-145) Potassium Level 4.6 mmol/L (3.5-5.0) Chloride Level 107 mmol/L (98-107) Carbon Dioxide Level 22 mmol/L (22-30) Blood Urea Nitrogen 5 mg/dl (9-21) Creatinine 0.80 mg/dl (0.66-1.25) Glomerular Filtration Rate Calc > 60.0 Random Glucose 83 mg/dl (75-110) Calcium Level 9.3 mg/dl (8.4-10.2) Total Bilirubin 0.5 mg/dl (0.2-1.3) Aspartate Amino Transf (AST/SGOT) 70 U/L (0-35) Alanine Aminotransferase (ALT/SGPT) 60 U/L (0-56) Alkaline Phosphatase 91 U/L (0-126) Total Protein 8.1 g/dl (6.3-8.2) Albumin 4.6 g/dl (3.5-5.0) Chemistry Test 09/18/18 14:20 09/18/18 14:43 Urine Color Straw Urine Clarity Clear Urine pH 5.0 pH (4.8-9.5) Urine Specific Malone 1.003 Urine Protein Negative mg/dL (NEGATIVE) Urine Glucose (UA) Negative mg/dL (NEGATIVE) Urine Ketones Negative mg/dL (NEGATIVE) Urine Blood Negative (NEGATIVE) Urine Nitrite Negative (NEGATIVE) Urine Bilirubin Negative (NEGATIVE) Urine Urobilinogen Negative mg/dL (0.2-1.9) Urine Leukocyte Esterase Negative (NEGATIVE) Urine RBC <1 /HPF (0-2/HPF) Urine WBC <1 /HPF (0-5/HPF) Urine Squamous Epithelial Cells None /LPF (</=FEW) Urine Bacteria Few /HPF (NONE-FEW) Urine Mucus None /HPF (NONE-FEW) White Blood Count 7.7 k/uL (4.5-11.0) Red Blood Count 5.28 M/uL (4.00-5.60) Hemoglobin 17.9 g/dL (14.0-18.0) Hematocrit 52.1 % (42.0-52.0) Mean Corpuscular Volume 98.7 fL (80.0-96.0) Mean Corpuscular Hemoglobin 34.0 pg (26.0-33.0) Mean Corpuscular Hemoglobin Concent 34.4 g/dL (32.0-36.0) Red Cell Distribution Width 13.2 % (11.5-14.5) Platelet Count 159 K/uL (150-450) Mean Platelet Volume 9.6 fL (7.2-11.1) Neutrophils (%) (Auto) 48.4 % (39.4-72.5) Lymphocytes (%) (Auto) 43.3 % (17.6-49.6) Monocytes (%) (Auto) 6.0 % (4.1-12.4) Eosinophils (%) (Auto) 1.3 % (0.4-6.7) Basophils (%) (Auto) 1.0 % (0.3-1.4) Nucleated RBC Relative Count (auto) 0.1 /100WBC Neutrophils # (Auto) 3.8 K/uL (2.0-7.4) Lymphocytes # (Auto) 3.3 K/uL (1.3-3.6) Monocytes # (Auto) 0.5 K/uL (0.3-1.0) Eosinophils # (Auto) 0.1 K/uL (0.0-0.5) Basophils # (Auto) 0.1 K/uL (0.0-0.1) Nucleated RBC Absolute Count (auto) 0.00 K/uL Glomerular Filtration Rate Calc > 60.0 Calcium Level 9.3 mg/dl (8.4-10.2) Total Bilirubin 0.5 mg/dl (0.2-1.3) Aspartate Amino Transf (AST/SGOT) 70 U/L (0-35) Alanine Aminotransferase (ALT/SGPT) 60 U/L (0-56) Alkaline Phosphatase 91 U/L (0-126) Total Protein 8.1 g/dl (6.3-8.2) Albumin 4.6 g/dl (3.5-5.0) Urinalysis Test 09/18/18 14:20 Urine Color Straw Urine Clarity Clear Urine pH 5.0 pH (4.8-9.5) Urine Specific Malone 1.003 Urine Protein Negative mg/dL (NEGATIVE) Urine Glucose (UA) Negative mg/dL (NEGATIVE) Urine Ketones Negative mg/dL (NEGATIVE) Urine Blood Negative (NEGATIVE) Urine Nitrite Negative (NEGATIVE) Urine Bilirubin Negative (NEGATIVE) Urine Urobilinogen Negative mg/dL (0.2-1.9) Urine Leukocyte Esterase Negative (NEGATIVE) Urine RBC <1 /HPF (0-2/HPF) Urine WBC <1 /HPF (0-5/HPF) Urine Squamous Epithelial Cells None /LPF (</=FEW) Urine Bacteria Few /HPF (NONE-FEW) Urine Mucus None /HPF (NONE-FEW) ED Course/Re-evaluation ED Course CT scan confirms that the hernia repair itself is intact. Patient has a postop hematoma versus seroma. UA shows no evidence of UTI or other infection. He has a benign abdominal exam. Spoke with Dr. Kurtz about the case, and he will follow up with him on Friday as previously scheduled. Per Dr. Kurtz's recommendations, I counseled the patient to use ice packs as needed and reassure him that the pain will continue to improve. Decision to Disposition Date: Sep 18, 2018 Decision to Disposition Time: 17:08 Depart Departure Latest Vital Signs Vital Signs Date Time Temp Pulse Resp B/P (MAP) Pulse Ox O2 Delivery O2 Flow Rate FiO2 09/18/18 15:12 70 92 09/18/18 15:08 118/76 (90) 09/18/18 13:38 97.9 14 Room Air Impression: Primary Impression: Hematoma Condition: Improved Disposition: HOME OR SELF-CARE Referrals: FRANKY MCKEON (PCP) Patient Instructions: Hematoma (ED) LEAH LAMBERT MD Sep 18, 2018 13:49
[2018-09-18] MEDS ORDERED: MORPHINE 4 MG/ML SDV IVP ONE (14:15)
[2018-09-18] MEDS ORDERED: HYDROMORPHONE HCL 1 MG/ML SYRINGE IVP ONE ×2 (14:40→15:30)
[2018-09-18 14:56] LABS: PLATELET COUNT, AUTOMATED 159 K/uL (150-450)
--- NOTE | 2018-09-18 15:43 | RADIOLOGY IMAGING REPORT ---
[place] [facility] [place] Rito Falk : 1965 MR: [id number] V: [id number] EXAM DATE: ORDERING PHYSICIAN: LEAH LAMBERT TECHNOLOGIST: Location: [facility] Patient: Rito Falk : 1965 Visit/Account:[id number] Date of Sevice: 09/18/2018 EXAMINATION: CT pelvis without IV contrast HISTORY: Status post hernia repair on right side and now with painful mass at site. COMPARISON: CT of the abdomen and pelvis from 08/01/2018. TECHNIQUE: Spiral scan was obtained through the pelvis without intravenous contrast. Sagittal and coronal reformatted images are also submitted. One of the following dose optimization techniques was utilized in the performance of this exam: Autom ated exposure control; adjustment of the mA and/or kV according to the patient's size; or use of an i terative reconstruction technique. Specific details can be referenced in the facility's radiology C T exam operational policy. FINDINGS: Pelvic structures: Negative. Bowel: Negative. Peritoneum / retroperitoneum / mesenteries: Postsurgical changes of right inguinal hernia repair. Vessels: Mild calcified plaque of the iliac arteries. Musculoskeletal / Body wall: There is a collection in the right inguinal canal measuring 4.9 x 2.7 x 2.6 cm with attenuation of 32 Hounsfield units. Lymph node assessment: Negative. IMPRESSION: Status post right inguinal hernia repair. There is a collection in the right inguinal canal measuring 4.9 x 2.7 x 2.6 cm with attenuation of 32 Hounsfield units. This may represent a hematoma or complex fluid collection within the inguinal more l. Report Dictated By: Raghav Rai MD at 09/18/2018 3:30 PM Report E-Signed By: Raghav Rai MD at 09/18/2018 3:37 PM WSN:[id number]
[2018-09-18 16:51] VITALS: BP 120/89
== END 2018-09-18 17:00 | disposition home or self-care (01) ==
LOC: ER 13:32
DX: L76.32 Postprocedural hematoma of skin and subcutaneous tissue following other procedure (principal); Y83.9 Surgical procedure, unspecified as the cause of abnormal reaction of the patient, or of later complication, without mention of misadventure at the time of the procedure
CPT/HCPCS: 72192; 81001; 85025; 96374; 96376; 99284; J1170; J2270; 82040; 82247; 82310; 82374; 82435; 82565; 82947; 84075; 84132; 84155; 84295; 84450; 84460; 84520